=== PATIENT | female | born 1945 | race Caucasian/White ===

== ENCOUNTER 2018-02-13 00:16 | Outpatient (CLI) | payer MEDICARE, OTHER, SELFPAY ==
--- NOTE | 2018-02-13 11:15 | DI.MAMMO_ITS ---
SYMPTOM/DIAGNOSIS: SCREENING, Z12.39 MAMMOGRAMS: Mammograms were interpreted according to the usual protocol including computer analysis with CAD system, tomosynthesis and C view imaging. Comparison is made with prior examinations. Breast density, B. No masses or microcalcifications are seen. There is nothing to suggest malignancy. IMPRESSION: Negative mammogram. Routine screening is recommended. Category 1. MQSA ASSESSMENT OF FINDINGS: Negative. Category 1. Patient will receive a letter notifying them of these results. BI-RADS category B. There are scattered areas of fibroglandular density.
== END 2018-02-13 00:36 ==
PROVIDERS: PCP Nurse Practitioner Adult Health; Visit Provider Nurse Practitioner
DX: Z12.31 Encounter for screening mammogram for malignant neoplasm of breast (principal)
CPT/HCPCS: 77063; 77067

== ENCOUNTER 2020-01-07 12:50 | Outpatient (REF) | payer MEDICARE, OTHER, SELFPAY ==
[2020-01-07 22:07] LABS: ALT 35 U/L (14-59); AST 28 U/L (15-37); Albumin 3.9 g/dL (3.4-5.0); Alkaline Phosphatase 117 U/L (46-116); Anion Gap 8.5 mmol/L (3-11); BUN 20 mg/dL (7-18); Bilirubin, Total 0.7 mg/dL (0.2-1.0); CO2 27.5 mmol/L (21.0-32.0); CREATININE 0.73 mg/dL (0.55-1.02); Calcium 9.6 mg/dL (8.5-10.1); Calculated LDL 67 mg/dL (<100); Chloride 106 mmol/L (98-107); Cholesterol 172 mg/dL (<200); Glucose 90 mg/dL (74-106); HDL Cholesterol 95 mg/dL (40-60); Potassium 4.5 mmol/L (3.5-5.1); Sodium 142 mmol/L (136-145); Total Protein 7.1 g/dL (6.4-8.2); Triglyceride 50 mg/dL (<150)
== END 2020-01-07 13:10 ==
LOC: NCHCN 12:50
PROVIDERS: PCP Nurse Practitioner; Visit Provider Nurse Practitioner
DX: I10 Essential (primary) hypertension (principal); I73.9 Peripheral vascular disease, unspecified
CPT/HCPCS: 80053; 80061

== ENCOUNTER 2020-02-03 01:42 | Outpatient (CLI) | payer MEDICARE, OTHER, SELFPAY ==
--- NOTE | 2020-02-03 | DI.MAMMO_ITS ---
EXAM: MAMMO SCREENING CLINICAL HISTORY: SCREENING, Z12.39 TECHNIQUE: Mammograms were interpreted according to the usual protocol including computer analysis w [employer] CAD system, tomosynthesis and C-view imaging. COMPARISON: 2011 through 2017 FINDINGS: The breasts are composed of heterogeneously dense fibroglandular densities, Breast Density category C . No suspicious masses or suspicious microcalcifications are seen. Vascular calcifications are inciden tally noted. No skin thickening or abnormal axillary lymph nodes are seen. There has been no significant change from prior exams. IMPRESSION: BI-RADS Category 1 - Negative Yearly screening mammography is recommended. Breast Density - Category C - Heterogeneously dense The mammogram demonstrates the patient's breast tissue is dense. Dense breast tissue is very common a nd is not abnormal but dense breast tissue can make it harder to find cancer on a mammogram. Also, de nse breast tissue may increase breast cancer risk. This information about the result of the mammogram report was provided to the patient to raise their awareness. Use this report when you speak with the patient about their risks for breast cancer, which includes their family history. At that time, you may recommend additional screening tests (Ultrasound or MRI) as they might be useful based on their r isk. A negative radiographic report should not delay biopsy if a dominant or clinically suspicious mass is present. Up to ten percent of cancers are not identified on mammography. A negative report may reinforce clinical impression. Adenosis and dense breasts may obscure an underlying neoplasm. False positive reports average 6 to 10%.
== END 2020-02-03 02:02 ==
PROVIDERS: PCP Nurse Practitioner; Visit Provider Nurse Practitioner
DX: Z12.31 Encounter for screening mammogram for malignant neoplasm of breast (principal); R92.2 Inconclusive mammogram
CPT/HCPCS: 77063; 77067

== ENCOUNTER 2021-06-22 18:32 | Outpatient (REF) | payer MEDICARE, SELFPAY ==
[2021-06-22 19:02] LABS: HCT 39.1 % (36.0-46.0); HGB 12.5 g/dL (11.2-15.7); MCH 31.3 pg (27.0-33.0); MCV 97.8 fL (80-95); MPV 12.7 fL (8.0-11.0); Platelet Count 243 10^3/uL (130-400); RDW 13.1 % (11.7-14.6); RDW-SD 47.5 fL; WBC 5.81 10^3/uL (4.4-10.8)
[2021-06-22 20:03] LABS: ALT 42 U/L (14-59); AST 34 U/L (15-37); Albumin 3.7 g/dL (3.4-5.0); Alkaline Phosphatase 150 U/L (46-116); Anion Gap 9.2 mmol/L (3-11); BUN 17 mg/dL (7-18); Bilirubin, Total 0.6 mg/dL (0.2-1.0); CO2 25.8 mmol/L (21.0-32.0); CREATININE 0.6 mg/dL (0.55-1.02); Calcium 9.4 mg/dL (8.5-10.1); Calculated LDL 60 mg/dL (<100); Chloride 105 mmol/L (98-107); Cholesterol 167 mg/dL (<200); Glucose 97 mg/dL (74-106); HDL Cholesterol 95 mg/dL (40-60); Potassium 4.7 mmol/L (3.5-5.1); Sodium 140 mmol/L (136-145); Triglyceride 64 mg/dL (<150)
== END 2021-06-22 18:33 | disposition home or self-care (01) ==
LOC: NCHCN 18:32
PROVIDERS: PCP Nurse Practitioner; Visit Provider Nurse Practitioner Family
DX: I10 Essential (primary) hypertension (principal); I73.9 Peripheral vascular disease, unspecified; G47.00 Insomnia, unspecified
CPT/HCPCS: 80053; 80061; 85027

== ENCOUNTER 2022-08-30 20:29 | Outpatient (REF) | payer MEDICARE, SELFPAY ==
[2022-08-30 20:23] LABS: ESR 20 mm/hr (0-30)
[2022-08-30 20:24] LABS: Abs Immature Grans 0.01 10^3/uL (0.0-0.06); Absolute Basophil Count 0.07 10^3/uL (0.0-0.2); Absolute Eosinophil Count 0.15 10^3/uL (0.0-0.7); Absolute Lymphocyte Count 1.86 10^3/uL (1.2-3.4); Absolute Monocyte Count 0.41 10^3/uL (0.1-0.8); Absolute Neutrophil Count 4.07 10^3/uL (1.2-6.7); Basophils % 1.1; Eosinophils % 2.3; HCT 37.1 % (36.0-46.0); HGB 12.4 g/dL (11.2-15.7); Immature Grans % 0.2; Lymphocytes % 28.3; MCHC 33.4 % (32.0-36.0); MCV 96 fL (80-95); MPV 12.6 fL (8.0-11.0); Monocytes % 6.2; Neutrophils % 61.9; Platelet Count 220 10^3/uL (130-400); RBC 3.87 10^6/uL (3.93-5.22); RDW 12.9 % (11.7-14.6); RDW-SD 45.8 fL; WBC 6.57 10^3/uL (4.4-10.8)
[2022-08-30 20:40] LABS: Iron 52 ug/dL (50-170); Total Iron Binding Capacity 279 ug/dL (250-450); Transferrin Sat 19 % (15-50)
[2022-08-30 20:46] LABS: ALT 30 U/L (14-59); AST 27 U/L (15-37); Albumin 3.8 g/dL (3.4-5.0); Alkaline Phosphatase 166 U/L (46-116); Anion Gap 7.8 mmol/L (3-11); BUN 27 mg/dL (7-18); Bilirubin, Total 0.5 mg/dL (0.2-1.0); C-Reactive Protein 0.32 mg/dL (0.0-0.3); CO2 26.2 mmol/L (21.0-32.0); CREATININE 0.7 mg/dL (0.55-1.02); Calcium 9.4 mg/dL (8.5-10.1); Chloride 104 mmol/L (98-107); Estimated GFR 89.02 (mL/min/1.73m2); Glucose 93 mg/dL (74-106); Potassium 4.4 mmol/L (3.5-5.1); Sodium 138 mmol/L (136-145); Total Protein 7.2 g/dL (6.4-8.2)
[2022-08-30 21:23] LABS: Vitamin B12 864 pg/mL (193-986)
== END 2022-08-30 20:30 | disposition home or self-care (01) ==
LOC: NCHCN 20:29
PROVIDERS: PCP Nurse Practitioner; Visit Provider Nurse Practitioner Family
DX: I49.9 Cardiac arrhythmia, unspecified (principal); R53.83 Other fatigue; I10 Essential (primary) hypertension; L30.9 Dermatitis, unspecified
CPT/HCPCS: 80053; 85652; 82607; 83540; 83550; 84443; 85025; 86140

== ENCOUNTER 2022-09-07 09:25 | Outpatient (RCR) | payer MEDICARE, SELFPAY ==
--- NOTE | 2022-09-07 09:30 | HOLTER_ITS ---
APPROVED REPORT Conclusion This is a 48-hour Holter monitor Rhythm throughout was sinus with an average heart rate of 70. Minimum was 53, maximum 105 There were rare isolated ventricular ectopic beats There were moderately frequent atrial premature beats comprising 3% of total A total of 13 self-limited atrial runs occurred. The longest of these was 14 beats in duration There was no atrial fibrillation, no high-grade AV block, no pauses greater than 3 seconds No patient symptoms were reported
== END 2022-10-04 23:59 | disposition home or self-care (01) ==
LOC: CARDOPNVT 09:25
PROVIDERS: PCP Nurse Practitioner; Visit Provider Nurse Practitioner Family
DX: R53.82 Chronic fatigue, unspecified (principal); I49.9 Cardiac arrhythmia, unspecified
CPT/HCPCS: 93227; 93225; 93226

== ENCOUNTER 2022-10-04 02:41 | Outpatient (CLI) | payer MEDICARE, SELFPAY ==
--- NOTE | 2022-10-04 10:58 | DI.RAD_ITS ---
Exam(s) XR CHEST 2V PA LATERAL EXAM: XR CHEST 2V PA LATERAL CLINICAL HISTORY: GODFREY, R06.09; PREMATURE ATRIAL CONTRACTIONS, I49.1; FATIGUE, R53.83 TECHNIQUE: 2D digital imaging was performed. COMPARISON: No exams were available for comparison FINDINGS: HEART: Normal size. Mitral annular calcification. Aorta: Not dilated. PULMONARY VASCULATURE: Normal. LUNGS: Clear. PLEURAL SPACE: No pleural effusion or pneumothorax. BONE:Unremarkable for age. IMPRESSION: No acute abnormality. DATA REPOSITORY: RADIATION DOSE DELIVERED:
== END 2022-10-04 03:01 ==
PROVIDERS: PCP Nurse Practitioner Family; Visit Provider Nurse Practitioner Family
DX: R06.9 Unspecified abnormalities of breathing (principal); I49.1 Atrial premature depolarization; R53.83 Other fatigue
CPT/HCPCS: 71046

== ENCOUNTER → 2022-12-22 00:41 | Outpatient (CLI) | payer MEDICARE, SELFPAY ==
--- NOTE | 2022-12-22 | DI.US_ITS ---
APPROVED REPORT EXAM: Comprehensive 2D, Doppler, and color-flow Echocardiogram Patient Location: Out-Patient Cottrell Blower: Tish Link RDCS (AE) Indications: GODFREY, Premature atrial contractions, Fatigue Other Information Study Quality: Adequate Conclusion Normal left ventricular size and wall thickness. EF is 60%. Wall motion is normal Normal right ventricular size and systolic function Atria are normal in size Aortic valve is trileaflet without stenosis or regurgitation Mitral annular calcification. Mild mitral regurgitation Normal tricuspid valve with mild regurgitation. Estimated right ventricular systolic pressure is 29 mmHg Wall motion Left Ventricle The left ventricle is normal size. The left ventricular systolic function is normal. The left ventric ular ejection fraction is within the normal range. There is normal left ventricular wall thickness. T here is normal LV segmental wall motion. There is no ventricular septal defect visualized. LVEF is 60 %. Right Ventricle The right ventricle is normal size. The right ventricular systolic function is normal. Atria The left atrium size is normal. The right atrium size is normal. The interatrial septum is intact wit h no evidence for an atrial septal defect. Aortic Valve The aortic valve is normal in structure. There is no aortic valvular stenosis. No aortic regurgitatio n is present. Mitral Valve Moderate mitral annular calcification. No evidence of mitral valve stenosis. Mild mitral regurgitatio n. Tricuspid Valve The tricuspid valve is normal in structure. There is no tricuspid valve stenosis. Mild tricuspid reg urgitation. The RVSP is 29.3 mmHg. Pulmonic Valve The pulmonary valve is normal in structure. There is no pulmonic valvular stenosis. Trivial pulmonic regurgitation. Great Vessels The aortic root is normal in size. The ascending aorta is normal in size. Aortic arch is normal in ca liber. IVC is normal in size and collapses >50% with inspiration. Pericardium There is no pericardial effusion. 2D Dimensions IVSD d PLAX 0.80 cm F: 0.6-1.0 LVPW d PLAX 0.78 cm F: 0.6 - 1.0 LVID d PLAX 4.88 cm F: 3.8 - 5.2 LVDs 3.30 cm F: 2.2 - 3.5 Ao Root d 2.69 cm F: 2.7 - 3.3 RA Area A4C 9.46 cm2 Ao Asc Diam d 3.07 cm F: 2.3 - 3.1 LV EF Teichholz 59.9 % FS 31.90 % M-Mode TAPSE 2.05 cm (M/F) >1.7 LV Diastology MV E' medial 0.120 (>0.07 m/s) E/A Ratio 0.9 LV E/e MED 8.47 (<14) MV E Vmax 1.02 (0.4-1.3 m/s) MV E' lateral 0.098 (>0.1 m/s) MV A Vmax 1.10 (0.4-1.3 m/s) LV E/e LAT 10.46 (<14) MV E/E' medial 8.47 MV E/E' lateral 10.46 MV (E/E' average) 9.36 Aortic Valve LVOT Vmax 1.33 m/s AoV Area Vmax 2.39 cm2 LVOT Peak Grad 7.1 mmHg LVOT Mean Grad 3.7 mmHg LVOT Diam s 1.95 cm AoV Vmax 1.72 m/s Velocity Ratio 0.77 AoV Peak Grad 11.8 mmHg LVOT SV 100.49 mL AoV Mean Grad 5.6 mmHg AoV Area VTI 2.46 cm2 Mitral Valve MV DT 254 (160-240 msec) MV Vmax TIPS 1.11 m/s MV Mean Grad 1.8 (<2mmHg) MV VTI 0.458 m Pulmonary Valve PV Mean Grad 2.8 mmHg RVOT Peak Gr. 2.62 mmHg RVOT Mean Gr. 1.50 mmHg RVOT VTI 0.208 m RVOT Vmax 0.81 m/s Tricuspid Valve TR Peak Grad 26.3 mmHg TR Vmax 2.57 m/s RA Pressure 3.00 mmHg RVSP (TR) 29.3 mmHg
== END ==
PROVIDERS: PCP Nurse Practitioner Family; Visit Provider Nurse Practitioner Family
DX: R06.09 Other forms of dyspnea (principal)
CPT/HCPCS: 93306

== ENCOUNTER 2023-08-02 18:21 | Outpatient (REF) | payer MEDICARE, SELFPAY ==
[2023-08-02 19:06] LABS: HCT 38.1 % (36.0-46.0); HGB 12.5 g/dL (11.2-15.7); MCH 31.6 pg (27.0-33.0); MCHC 32.8 % (32.0-36.0); MCV 96 fL (80-95); MPV 12.4 fL (8.0-11.0); Platelet Count 219 10^3/uL (130-400); RBC 3.96 10^6/uL (3.93-5.22); RDW 13.2 % (11.7-14.6); RDW-SD 46.9 fL; WBC 6.78 10^3/uL (4.4-10.8)
[2023-08-02 19:26] LABS: Iron 62 ug/dL (50-170); Total Iron Binding Capacity 272 ug/dL (250-450); Transferrin Sat 23 % (15-50)
[2023-08-02 19:38] LABS: Anion Gap 11.5 mmol/L (3-11); BUN 27 mg/dL (7-18); CO2 25.5 mmol/L (21.0-32.0); CREATININE 0.6 mg/dL (0.55-1.02); Calcium 9.2 mg/dL (8.5-10.1); Calculated LDL 59 mg/dL (<100); Chloride 107 mmol/L (98-107); Cholesterol 160 mg/dL (<200); Estimated GFR 91.82 (mL/min/1.73m2); Ferritin 340 ng/mL (8-252); Glucose 99 mg/dL (74-106); HDL Cholesterol 91 mg/dL (40-60); Potassium 4.4 mmol/L (3.5-5.1); Sodium 144 mmol/L (136-145); Triglyceride 51 mg/dL (<150)
== END 2023-08-02 18:22 | disposition home or self-care (01) ==
LOC: NCHCN 18:21
PROVIDERS: PCP Nurse Practitioner Family; Referring Provider Nurse Practitioner Family; Visit Provider Nurse Practitioner Family
DX: I10 Essential (primary) hypertension (principal); E78.5 Hyperlipidemia, unspecified; D50.9 Iron deficiency anemia, unspecified
CPT/HCPCS: 80048; 80061; 85027; 82728; 83540; 83550

== ENCOUNTER 2023-08-27 13:45 | Outpatient (CLI) | payer MEDICARE, SELFPAY ==
--- NOTE | 2023-08-27 13:57 | DI.RAD_ITS ---
Exam(s) XR KNEE LT 3V AP,LAT,BEN EXAM: XR KNEE LT 3V AP,LAT,BEN CLINICAL HISTORY: BILATERAL KNEE PAIN. TECHNIQUE: 2D digital imaging was performed. Three images were obtained. Merchant's, AP and lateral views were obtained. COMPARISON: No exams were available for comparison FINDINGS: BONES: There are stable post operative changes of a left total knee replacement present. No fracture or dislocation. JOINTS: The orthopedic hardware is in good position. No evidence of hardware loosening. SOFT TISSUE: Dystrophic calcifications are seen in the soft tissues. Surgical clips are also seen in the soft tissues. There is a small joint effusion. IMPRESSION: Stable left total knee replacement. DATA REPOSITORY: RADIATION DOSE DELIVERED:
--- NOTE | 2023-08-27 13:58 | DI.RAD_ITS ---
Exam(s) XR KNEE RT 3V AP,LAT,BEN EXAM: XR KNEE RT 3V AP,LAT,BEN CLINICAL HISTORY: BILATERAL KNEE PAIN. TECHNIQUE: 2D digital imaging was performed. Three images were obtained. Merchant's, AP and lateral views were obtained. COMPARISON: No exams were available for comparison FINDINGS: BONES: There are stable post operative changes of a right total knee replacement present. No fractur e or dislocation. JOINTS: The orthopedic hardware is in good position. No evidence of hardware loosening. SOFT TISSUE: There is a well corticated osseous density in the lateral aspect of the joints which elena ears chronic. There does appear to be a small joint effusion. IMPRESSION: Stable right total knee replacement. DATA REPOSITORY: RADIATION DOSE DELIVERED:
== END 2023-08-27 13:46 | disposition home or self-care (01) ==
LOC: DIORS 13:45
PROVIDERS: PCP Nurse Practitioner Family; Referring Provider Nurse Practitioner Family; Visit Provider Student in an Organized Health Care Education/Training Program
DX: T84.84XA Pain due to internal orthopedic prosthetic devices, implants and grafts, initial encounter; T84.022A Instability of internal right knee prosthesis, initial encounter; Z96.652 Presence of left artificial knee joint; Z96.651 Presence of right artificial knee joint
CPT/HCPCS: 73562; 99204

== ENCOUNTER → 2023-09-11 05:22 | Outpatient (CLI) | payer MEDICARE, SELFPAY ==
--- NOTE | 2023-09-11 07:15 | DI.CT_ITS ---
Exam(s) CT LOWER EXTREMITY RT WO EXAM: CT LOWER EXTREMITY RT WO CLINICAL HISTORY: PAIN, ?LOOSENING,M25.561,T84.84XA. TECHNIQUE: Imaging Protocol: Axial computed tomography images with coronal and sagittal reformatted images were created and reviewed. COMPARISON: CR XR KNEE RT 3V AP,LAT,BEN from 08/27/2023 FINDINGS: Bones: The patient has a right total knee replacement which does create artifact. There are no susp icious lucency seen around the tibial component of the artifact. There also no lucency seen around t he femoral component of the prosthesis. The patella appears grossly unremarkable. The osseous struc tures and articular surfaces are intact. Bony alignment is satisfactory. No cellulitic or osteomyel itic changes are identified. No lytic or sclerotic lesions are identified. Soft Tissues: There is a joint effusion present. There is a popliteal cyst present measuring 3.0 x 3 .0 x 3.1 cm. IMPRESSION: 1. Within the limits of the examination, no suspicious lucencies are seen in or around the orthopedic hardware to suggest loosening. 2. Right total knee replacement. 3. Small joint effusion. 4. Popliteal cyst. RADIATION DOSE DELIVERED: 310.2mGy.cm Total DLP 310.2mGy.cm Total DLP DATA REPOSITORY: All CT scans at this facility are submitted to the National Radiology Data Registry (NRDR) Dose Index Registry (DIR) with the [employer] (ACR). RADIATION OPTIMIZATION: All CT scans at this facility use at least one of these dose optimization te chniques: automated exposure control; mA and/or kV adjustment per patient size (includes targeted exa ms where dose is matched to clinical indication); or iterative reconstruction.
--- NOTE | 2023-09-11 07:15 | DI.CT_ITS ---
Exam(s) CT LOWER EXTREMITY LT WO EXAM: CT LOWER EXTREMITY LT WO CLINICAL HISTORY: PAIN,?LOOSENING, M25.562,T84.84XA. TECHNIQUE: Imaging Protocol: Axial computed tomography images with coronal and sagittal reformatted images were created and reviewed. COMPARISON: CR XR KNEE LT 3V AP,LAT,BEN from 08/27/2023 FINDINGS: Bones: The patient has a left total knee replacement. This does create artifact. There is mild filiberto ency seen around the medial aspect of the tibial component anterior medially. The orthopedic hardwar e is otherwise unremarkable. Enthesophytes are seen at the anterior patella. No cellulitic or osteo myelitic changes are identified. There is a small joint effusion. No lytic or sclerotic lesions are identified. Soft Tissues: Small joint effusion. IMPRESSION: 1. Left total knee replacement. 2. Mild lucency is seen around the medial anterior aspect of the tibial component. Loosening or infe ction cannot be entirely excluded. There is some disruption of the cortex in this area. 3. Small joint effusion. RADIATION DOSE DELIVERED: 289.82mGy.cm Total DLP 289.82mGy.cm Total DLP DATA REPOSITORY: All CT scans at this facility are submitted to the National Radiology Data Registry (NRDR) Dose Index Registry (DIR) with the [employer] (ACR). RADIATION OPTIMIZATION: All CT scans at this facility use at least one of these dose optimization te chniques: automated exposure control; mA and/or kV adjustment per patient size (includes targeted exa ms where dose is matched to clinical indication); or iterative reconstruction.
--- NOTE | 2023-09-11 07:15 | DI.NM_ITS ---
Exam(s) NM BONE SCAN 3 PHASE EXAM: NM BONE SCAN 3 PHASE CLINICAL HISTORY: BILAT KNEE PAIN, ?LOOSENING PROSTHESIS,M25.561,M25.562. TECHNIQUE: Injected Dose: 25 mCi Tc-99m MDP COMPARISON: CR XR CHEST 2V PA LATERAL from 10/04/2022 CR XR KNEE LT 3V AP,LAT,BEN from 08/27/2023 CR XR KNEE RT 3V AP,LAT,BEN from 08/27/[address] LOWER EXTREMITY RT WO from 09/11/[address] LOWER EXTREMITY LT WO from 09/11/2023 FINDINGS: Perfusion: Mild hyperemia at the lateral aspect of the left knee. Blood Pool: Symmetric. Delayed: Increased activity seen in the left tibial plateau, adjacent to the prosthesis, greater post eriorly and medially. Findings along with CT findings are suspicious for loosening. There is mildly increased activity around the left femoral component of the prosthesis laterally. Mildly increased activity around the right knee prosthesis, likely within normal limits for postopera tive appearance. Mildly increased activity in the thoracic and lower lumbar spine consistent with de generative changes. IMPRESSION: Findings suspicious for loosening of the tibial component of the left femoral prosthesis. Mildly inc reased activity is also seen laterally at the femoral component of the left knee. The right knee shows mildly increased activity surrounding the prosthesis which is likely within norm al limits for postoperative appearance. DATA REPOSITORY:
[2023-09-11 10:34] LABS: ESR 26 mm/hr (0-30)
[2023-09-11 11:10] LABS: C-Reactive Protein < 0.50 mg/dL (<or=0.5)
== END ==
PROVIDERS: PCP Nurse Practitioner Family; Visit Provider Student in an Organized Health Care Education/Training Program
DX: T84.84XA Pain due to internal orthopedic prosthetic devices, implants and grafts, initial encounter (principal); Z96.651 Presence of right artificial knee joint; Z96.652 Presence of left artificial knee joint
CPT/HCPCS: 36415; 85652; 73700; 78315; 86140

== ENCOUNTER → 2023-10-08 14:45 | Outpatient (BNVA) | payer MEDICARE, SELFPAY | PROVIDERS: PCP Nurse Practitioner Family; Referring Provider Nurse Practitioner Family; Visit Provider Student in an Organized Health Care Education/Training Program | DX: T84.022A Instability of internal right knee prosthesis, initial encounter (principal); Z96.651 Presence of right artificial knee joint; Z96.652 Presence of left artificial knee joint; T84.038A Mechanical loosening of other internal prosthetic joint, initial encounter; T84.84XA Pain due to internal orthopedic prosthetic devices, implants and grafts, initial encounter; T84.068A Wear of articular bearing surface of other internal prosthetic joint, initial encounter | CPT/HCPCS: 99215 ==

== ENCOUNTER → 2024-02-04 09:50 | Outpatient (BNVA) | payer MEDICARE, SELFPAY | PROVIDERS: PCP Nurse Practitioner Family; Visit Provider Student in an Organized Health Care Education/Training Program | DX: M25.562 Pain in left knee (principal); Z96.652 Presence of left artificial knee joint; T84.84XA Pain due to internal orthopedic prosthetic devices, implants and grafts, initial encounter; T84.038A Mechanical loosening of other internal prosthetic joint, initial encounter; T84.068A Wear of articular bearing surface of other internal prosthetic joint, initial encounter | CPT/HCPCS: 99213 ==

== ENCOUNTER 2024-03-10 14:18 | Outpatient (CLI) | payer MEDICARE, SELFPAY ==
--- NOTE | 2024-03-10 14:15 | RT.EKG_ITS ---
APPROVED REPORT Exam: Resting ECG Reason for Exam: irregular heart beat Patient Location: O HR:108 bpm ECG Measurements Heart Rate 108 AXIS AZ [id number] P [id number] QRSd 96 QRS 0 QT 365 T 53 QTc 490 Conclusion Atrial fibrillation...? atrial activity RSR' in V1 or V2,
== END 2024-03-10 14:19 | disposition home or self-care (01) ==
LOC: CARDOPNVT 14:18
PROVIDERS: PCP Nurse Practitioner Family; Visit Provider Physician Assistant
DX: I49.9 Cardiac arrhythmia, unspecified (principal); I48.91 Unspecified atrial fibrillation; T84.038A Mechanical loosening of other internal prosthetic joint, initial encounter; Z96.652 Presence of left artificial knee joint
CPT/HCPCS: 36415; 80048; 85027; 99214; 93005; 93010

== ENCOUNTER 2024-03-11 16:11 | Outpatient (REF) | payer MEDICARE, SELFPAY ==
--- OUTSIDE RECORDS SUMMARY | 2024-03-11 16:14 | XMS_ITS | Encounter Summary ---
[place] [address] Care Team Providers Care Production Superintendent Hydro Name Role Phone Sylvia Torrez MINERAL MIXER Primary Care Provider [phone] Encounter Details Date Type Department Care Team (Late st Contact Info) Description 11/30/2023 Telephone [place] [id number] Jenn Krishna Social History Tobacco Use Types Packs/Day Years Used Date Smoking Tobacco: Former Cigarettes Q uit: 1964 Smokeless Tobacco: Never Alcohol Use Standard Drinks/Week Comments No 0 (1 standard drink = 0.6 oz pur e alcohol) Sex and Gender Information Value Date Recorded Sex Assigned at Not on file Gender Identity Not on file Sexual Orientation Not on file documented as of this encounter Miscellaneous Notes * Telephone Encounter - Jenn Krishna - 11/30/2023 11:38 AM EDT LVM X1 for patient to call and set up a follow up appointment and some testing with our clinic. RAO - claudication, 1Y F/U [place] CAGE documented in this encounter Plan of Treatment Not on file documented as of this encounter Visit Diagnoses Not on filedocumented in this encounter Care Teams Production Superintendent Hydro Relationship Specialty Start Date End Date Sylvia Torrez, [place] [address] PCP - General Family Medicine 08/03/21 documented as of this encounter
--- OUTSIDE RECORDS SUMMARY | 2024-03-11 16:14 | XMS_ITS | Encounter Summary ---
Author Organization [facility] Address [facility] [place] [address] Care Team Providers Care Java Tech Name Role Phone Grayson Mcduffie MD Primary Care Provider [phone] Encounter Details Date Type Department Care Team (Late st Contact Info) Description 05/18/2010 11:40 AM EST Follow-[place] [address] Felipe Tse MD [facility] [place] [address] Discharge Disposition: Home Social History Tobacco Use Types Packs/Day Years Used Date Smoking Tobacco: Never Assessed Sex and Gender Information Value Date Recorded Sex Assigned at Not on file Gender Identity Not on file Sexual Orientation Not on file documented as of this encounter Plan of Treatment Not on file documented as of this encounter Visit Diagnoses Not on filedocumented in this encounter Care Teams Java Tech Relationship Specialty Start Date End Date Grayson Mcduffie MD PCP - General 03/29/10 03/14/15 documented as of this encounter
--- OUTSIDE RECORDS SUMMARY | 2024-03-11 16:14 | XMS_ITS | Encounter Summary ---
Author Organization [facility] Address [facility] [place] [address] Care Team Providers Care Patch Press Operator Name Role Phone Grayson Mcduffie MD Primary Care Provider [phone] Reason for Visit * Reason Onset Date Comments Appointment 09/15/2014 Encounter Details Date Type Department Care Team (Late st Contact Info) Description 09/15/2014 Telephone [place] [phone] Alison Arellano APRN [facility] [place] [address] Appointment Social History Tobacco Use Types Packs/Day Years Used Date Smoking Tobacco: Former Smokeless Tobacco: Never Alcohol Use Standard Drinks/Week Comments No 0 (1 standard drink = 0.6 oz pur e alcohol) Sex and Gender Information Value Date Recorded Sex Assigned at Not on file Gender Identity Not on file Sexual Orientation Not on file documented as of this encounter Miscellaneous Notes * Telephone Encounter - Janeth Randolph - 09/17/2014 10:49 AM EDT Patient will call back to schedule at her convinence, I have placed a reminder in the system for a year out. * Telephone Encounter - Geri Andino - 09/15/2014 10:03 AM EDT LM#1 for patient to reschedule cancelled appt with Porsha Arellano. Can be with any AP. BILAT TKA 06/07/05 - ZANE documented in this encounter Plan of Treatment Not on file documented as of this encounter Visit Diagnoses Not on filedocumented in this encounter Care Teams Patch Press Operator Relationship Specialty Start Date End Date Grayson Mcduffie MD PCP - General 03/29/10 03/14/15 documented as of this encounter
--- OUTSIDE RECORDS SUMMARY | 2024-03-11 16:14 | XMS_ITS | Encounter Summary ---
Author Organization [facility] Address [facility] [place] [address] Care Team Providers Care Back Tufter Name Role Phone Grayson Mcduffie MD Primary Care Provider [phone] Reason for Visit * Reason Comments [facility] S/P B/L TKA 06/27/05 Encounter Details Date Type Department Care Team (Late st Contact Info) Description 05/13/2012 2:30 PM EST Office [place] [phone] CLINIC, DR MCGILL S/P knee replacement (Primary Dx) Discharge Disposition: Home Social History Tobacco Use Types Packs/Day Years Used Date Smoking Tobacco: Former Smokeless Tobacco: Never Alcohol Use Standard Drinks/Week Comments No 0 (1 standard drink = 0.6 oz pur e alcohol) Sex and Gender Information Value Date Recorded Sex Assigned at Not on file Gender Identity Not on file Sexual Orientation Not on file documented as of this encounter Last Filed Vital Signs Vital Sign Reading Time Taken Comments Blood Pressure 142/78 05/13/2012 3:19 PM EST Pulse 80 05/13/2012 3:19 PM EST Temperature - - Respiratory Rate - - Oxygen Saturation - - Inhaled Oxygen Concentration - - Weight 85.6 kg (188 lb 12.8 oz) 05/13/2012 3:19 PM EST Height 157.5 cm (5' 2) 05/13/2012 3:19 PM EST Body Mass Index 34.53 05/13/2012 3:19 PM EST documented in this encounter Progress Notes * Alison Arellano APRN - 05/13/2012 3:25 PM EST Chief Complaint: Bilateral knee TKA 2005 Right knee TKA Khai/Dr. Vanessa Left knee TKA Pertinent Surgical History: Right knee TKA: [facility] OPERATIVE REPORTS SURGERY DATE: 06/27/2005 JENN GARCIA [id number] Surgeon: CALLI DEGROOT MD ([id number]) Date: Jun 27, 2005 Surgeon: Calli Degroot MD Surgical Procedure Performed: Right total knee arthroplasty, posterior stabilized The left TKA will be dictated by Drs. Vanessa and Dianelys Components Used: Thais Legacy Posterior Stabilized Femur size D Tibial baseplate size 2 Tibial polyethylene 14 mm Three peg patella size 29 mm Left knee TKA: [facility] OPERATIVE REPORTS SURGERY DATE: 06/27/2005 JENN GARCIA [id number] Surgical Staff/Assistants Ollie Vanessa Jr., M.D. ([id number]) Reji Ivory M.D. * Preoperative Diagnosis: Left knee osteoarthritis. Postoperative Diagnosis: Left knee osteoarthritis. Procedure Performed: Left total knee arthroplasty; please note that the right- sided procedure will be dictated under separate cover by Dr. Degroot. Anesthesia: Spinal and femoral block. Components Used: Thais Legacy posterior stabilized: 1. Femur, size D. 2. Tibial base plate, size 2. 3. Tibial polyethylene, 12.0-mm. 4. 3-peg patella, size 32.0-mm. HPI: 66 Female. NO complaints with her knees. No pain. No mechanical complaints. Continues to feel better than before surgery. No injuries. No assistive devices. Continues to work at [employer]. Followed by the Vascular service for severe peripheral vascular disease left lower extremity. Seeing a metalsmith this month for calluses and heel pain. ROS: No fevers or chills. No systemic complains. 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 Hobbies: Walking. Problem list reviewed in [facility] Medication List reviewed in [facility] No Known Allergies History Substance Use Topics ??? Smoking status: Former Smoker ??? Smokeless tobacco: Never Used ??? Alcohol Use: No Physical Exam: Very pleasant 66 Female in no acute distress. Alert and oriented X3. Affect is bright and appropriate. Gait is steady. Non-antalgic. No assistive devices. Uses 2 hands to rise out of chair. Can get on and off exam table without difficulty. Good patella mobility 1-2 quadrants medially and laterally.No patella click or clunk noted. Both knees full extension to 0 degrees. Left knee flexion to 110. R ight knee flexion 115. Collateral and cruciate ligaments 1-2 mm SEP. Full light touch sensation. Skin is dry and intact. She does have very dry skin to both feet. + callouses to volar left foot an mild left heel pain at the medial calcaneal tuberosity. calfs are soft and non-tender. Right foot dorsalis pedis pulse 2+ Left foot dorsalis pedis pulse istrace. Capillary refill is less than 3 seconds. No lymphadenopathy. Xrays: Both knees stable bilateral knee TKA's. No radiolucencies. No jared- prosthetic fractures. No malpositioning. Impression: Both knee TKA's Dr. Degroot right knee. Dr. Vanessa left knee. Continues to feel betterthan before surgery. Plan: Dental precautions discussed in detail. Activity precautions reviewed. Skin, soft tissue and genitourinary precautions reviewed in detail. Try to use heavy emollient lotion ointment to both feet due to very dry skin. Follow with metalsmith for left heel pain and calloses. Certainly, Keep appointments with vascular service for PVD. We will plan a 2 year follow up with DR. Degroot with x- rays of both knees. Call in the interim for any problems or concerns. All questions answered today. She has a good understanding of our plan of care. CC: PCP documented in this encounter Plan of Treatment Not on file documented as of this encounter Visit Diagnoses Diagnosis S/P knee replacement- Primary Knee joint replacement by other means documented in this encounter Care Teams Back Tufter Relationship Specialty Start Date End Date Grayson Mcduffie MD PCP - General 03/29/10 03/14/15 documented as of this encounter
--- OUTSIDE RECORDS SUMMARY | 2024-03-11 16:14 | XMS_ITS | Encounter Summary ---
Author Organization [facility] Address [address] [place] [id number] Care Team Providers Care Mobile Home Installer Name Role Phone Unavailable Primary Care Provider Unavailabl e Encounter Details Date Type Department Care Team (Late st Contact Info) Description 11/25/2009 Results Only [facility] - [facility] ([facility]) [address], [place] [id number] Jose Gunderson MD [address] [place] [phone] Social History Tobacco Use Types Packs/Day Years Used Date Smoking Tobacco: Never Assessed Sex and Gender Information Value Date Recorded Sex Assigned at Not on file Gender Identity Not on file Sexual Orientation Not on file documented as of this encounter Plan of Treatment Not on file documented as of this encounter Procedures Procedure Name Priority Date/Time Associated Diagnosis Comments CYTOPATHOLOGY Routine 11/25/2009 0:00 EDT documented in this encounter Results * CYTOPATHOLOGY (11/25/2009 0:00 EDT) Pathology Report: CYTOPATHOLOGY REPORT ? Reports generated via electronic interface contain original data; ? however they are lacking the format of the original report. ? Caution should be taken when reading/interpreti ng unformatted reports. ? Name: ? JENN GARCIA ? Accession #: ? [id number] ? : ? 1945 (Age: 64) ??F ?Collect Date: ? 11/25/2009 ? Location: ? [facility] ? Receive Date: ? 11/29/2009 ? Provider: ?JOSE GUNDERSON MD ? Copy to: ? Specimen/Source: ?Pap Test, Cervix/Endocervix, ThinPrep Imaging System ? with manual evaluation ? Last Menstrual Period: ? 1993 ? Other: ? HPVA - HPV testing requested if ASC-US on the current ThinPrep Pap test. ? SPECIMEN ADEQUACY ? Satisfactory for Evaluation ? - assessment of transformation zone component not applicable ( e.g. atrophy, ? vaginal sample, hysterectomy) ? - scant squamous epithelial component secondary to excessive inflammation ? GENERAL CATEGORIZATION ? Negative for Intraepithelial Lesion or Malignancy ? Document reviewed and electronically signed by: ? Lynan Virgil, CT(ASCP) ? Report Date: ??12/01/2009 11:48 ? End of Report ? [facility] 11/25/2009 11/29/2009 Jose Gunderson MD PATHOLOGY ORDERABLES [facility] [address] [place] [address] documented in this encounter Visit Diagnoses Not on filedocumented in this encounter
--- OUTSIDE RECORDS SUMMARY | 2024-03-11 16:14 | XMS_ITS | Encounter Summary ---
Author Organization [facility] [place] [address] Care Team Providers Care Associate Professor Of English Name Role Phone ShanSylvia APRN Primary Care Provider [phone] Reason for Referral * Diagnostic Test (Routine) - Closed Specialty Diagnoses / Procedures Referred By Contac t Referred To Contact Diagnoses Bilateral carotid artery stenosis Procedures Carotid Duplex, Bilateral Nroman Her MD [facility] [place] [address] [facility] [address] [place] [phone] Referral ID Status Reason Start Date Expiration Date V isits Requested Visits Authorized [id number] Closed Specialty Service Requested 08/03/2021 08/03/2022 1 1 * Diagnostic Test (Routine) - Closed Specialty Diagnoses / Procedures Referred By Contac t Referred To Contact Diagnoses PVD (peripheral vascular disease) Procedures RAO, legs, multiple levels Norman Her MD [facility] [place] [address] [facility] [address] [place] [phone] Referral ID Status Reason Start Date Expiration Date V isits Requested Visits Authorized [id number] Closed Specialty Service Requested 08/03/2021 08/03/2022 1 1 Encounter Details Date Type Department Care Team (Late st Contact Info) Description 08/03/2021 11:00 AM EDT Office [place] [phone] Norman Her MD [facility] DR VASCULAR [place] [address] Bilateral carotid artery stenosis; PVD (peripheral vascular disease) Social History Tobacco Use Types Packs/Day Years [...] Sign Reading Time Taken Comments Blood Pressure 123/55 08/03/2021 10:55 AM EDT Pulse 75 08/03/2021 10:55 AM EDT Temperature - - Respiratory Rate - - Oxygen Saturation - - Inhaled Oxygen Concentration - - Weight 68 kg (150 lb) 08/03/2021 10:55 AM EDT re ported Height 157.5 cm (5' 2) 08/03/2021 10:55 AM EDT reported Body Mass Index 27.44 08/03/2021 10:55 AM EDT documented in this encounter Progress Notes * Norman Her MD - 08/03/2021 11:00 AM EDT Interval History: 75 yo woman returned for reevaluation of LEFT lower extremity peripheral vasculardisease . She reports no left lower extremity pain with ambulation. Denies signficant numbness. Denies foot ulcers or gangrenous toes. Notes continued LLE swelling and very dry skin on the plantar surface of her feet. She denies stroke, TIA, amaurosis fugax. Vascular History: Current Outpatient Medications: ??? meclizine (Antivert) 25 mg Tablet, TK 1 TO 2 TS PO BID PRF DIZZINESS, Disp: , Rfl: ??? amitriptyline (ELAVIL) 50 mg Tablet, TK 1 T PO QHS, Disp: , Rfl: 4 ??? mometasone (ELOCON) 0.1 % Cream, IMANI EXT AA QD FOR 10 DAYS, Disp: , Rfl: 1 ??? lisinopril (PRINIVIL;ZESTRIL) 20 mg Tablet, Take 20 mg by mouth daily., Disp: , Rfl: ??? multivitamin (THERAGRAN) tablet, Take 1 tablet by mouth daily. VITAMIN FOR WOMEN OVER 50, Disp:, Rfl: ??? atorvastatin (LIPITOR) 40 mg tablet, , Disp: , Rfl: ??? aspirin (ECOTRIN LOW STRENGTH) 81 mg EC tablet, , Disp: , Rfl: LEFT LOWER EXTREMITY PVD # Left fem-pop bypass graft with vein, OSH, September 2004 for ischemic rest pain. # BPG thrombosed on POD1, salvaged with thrombectomy and revision. Post-op thigh wound infection # BPG intimal hyperplasia, treated with cryoplasty at [facility] in Mar 10. 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 List includes aspirin & atorvastatin Allergies: NKDA ROS: Constitutional Denies weight loss, fevers or chills EENMT No visual disturbances, No hearing loss Cardiovascular Denies chest pain, chest pressure, angina Respiratory Denies acute SOB, cough, severe GODFREY GI No constipation or diarrhea Denies dysuria, hematuria Musculoskeletal No severe muscle aches Neurological Denies stroke, TIA, amaurosis fugax, dysarthria, dysphasia Endocrine No signs or symptoms of diabetes mellitus Heme/Lymphatic Denies s/s blood or lymph dyscrasias Physical Exam: Pleasant o/w woman NAD. BP 117/66 RUE, 119/72 LUE, HR 68, and cardiac rhythm regular. Carotid pulses are normal, no bruits. Radial pulses are normal. Abdomen doft and nontender. Femoral pulses are normal. The right lower extremity retains a normal palpable dorsalis pedis pulse. The left lower extremity has no DP or PT pulses. Motor exam of both lower extremities is normal. Sensation is fully intact. LLE remains edematous, but there are no changes of chronic venous insufficiency or enlarged varicosities. Plantar surfaces of both feet have very dry calloused skin. Noninvasive vascular studies: Recent Results (from the past 72 hour(s)) RAO, legs, multiple levels Result Value Ref Range VB Text Report Department: Vascular Surgery Lab Patient: [id number] (JENN GARCIA) CPT: 55563 Referring Physician: NORMAN HER Indications: PVD Diabetes mellitus: no Findings: Right Pressure (mm Hg) RAO Waveform TBI Brachial Artery 128 Dorsalis Pedis (Ankle) Artery 113 0.88 Bi-Triphasic Posterior Tibial (Ankle) Artery 109 0.85 Bi-Triphasic Great Toe 63 0.49 Left Pressure (mm Hg) RAO Waveform TBI Brachial Artery 128 Dorsalis Pedis (Ankle) Artery 46 0.36 Monophasic Posterior Tibial (Ankle) Artery 68 0.53 Monophasic Great Toe 35 0.27 Interpretation: RIGHT: Mild lower extremity arterial occlusive disease at the calf level. Toe-brachial index substantially lower than ankle-brachial index indicates presence of moderate arterial occlusive disease in the foot. No significant change compared to previous exam. LEFT: Moderate lower extremity arterial occlusive disease at the calf level. Toe-brachial index substantially lower than ankle-brachial index indicates presence of moderately severe arterial occlusive disease in the foot. No significant change compared to previous exam. Previous ABIs with change from previous value: Date RIGHT DP RIGHT PT RT GR TOE RT Sec TOE 0.74 0.71 0.47 ---- 0.73(-.01) 0.75(+.04) 0.53(+.06) ---- 0.90(+.17) 0.87(+.12) ---- ---- 0.69(-.21) 0.75(-.12) 0.49 ---- 0.80(+.11) 0.88(+.13) ---- ---- 0.82(+.02) 0.84(-.04) ---- ---- 0.63(-.19) 0.76(-.08) ---- ---- 0.75(+.12) 0.80(+.04) 0.52 ---- Current 0.88(+.13) 0.85(+.05) 0.49(-.03) ---- Date LEFT DP LEFT PT LT GR TOE LT Sec TOE 0.25 0.38 0.25 ---- 0.35(+.10) 0.47(+.09) 0.23(-.02) ---- 0.46(+.11) 0.48(+.01) 0.22(-.01) ---- 0.34(-.12) 0.38(-.10) 0.20(-.02) ---- 0.41(+.07) 0.50(+.12) ---- ---- 0.41( .00) 0.51(+.01) ---- ---- 0.32(-.09) 0.44(-.07) ---- ---- 0.36(+.04) 0.41(-.03) 0.20 ---- Current 0.36( .00) 0.53(+.12) 0.27(+.07) ---- Electronically Signed by: NORMAN HER on 2021-08-03 10:56:02 AM VB Text Report End of Report Impression & Plan: ??? Stable bilateral PAD, no symptoms. ABIs on both sides have been stable over the past few years.Excellent atherosclerotic medical regimen including statin. ??? Routine recommendations for continued ambulatory exercise and meticulous foot care. I recommended daily foot massage with skin lotion. She should stay on statin and aspirin. I recommended a reevaluation in one year, and I warned her to call before then should she develop any advanced vascular ischemic symptoms or cerebrovascular symptoms. documented in this encounter Plan of Treatment Not on file documented as of this encounter Results * Carotid Duplex, Bilateral (12/29/2022 10:52 AM EDT) VB Text Report Department: Vascular Surgery Lab Patient: [id number] (JENN GARCIA) CPT: 51602 Referring Physician: NORMAN HER ?? Indications: carotid disease Findings: ICA Proximal, Right ? PSV (cm/s): 98 ? EDV (cm/s): 26 ? ICA/CCA: 2.0 ? Plaque Structure: Echogenic ? Plaque Surface: Irregular ? %Stenosis: 16-49% ICA Distal, Right ? PSV (cm/s): 91 ? EDV (cm/s): 21 ? ICA/CCA: 1.8 CCA Distal, Right ? PSV (cm/s): 50 ? EDV (cm/s): 14 ? %Stenosis: Minimal CCA Proximal, Right ? PSV (cm/s): 72 ? EDV (cm/s): 15 External Carotid Artery, Right ? PSV (cm/s): 76 ? EDV (cm/s): 5 ? %Stenosis: <50% Vertebral, Right ? PSV (cm/s): 89 ? EDV (cm/s): 20 ? Direction of Flow: Antegrade ICA Proximal, Left ? PSV (cm/s): 108 ? EDV (cm/s): 27 ? ICA/CCA: 1.2 ? Plaque Structure: Echogenic ? Plaque Surface: Irregular ? %Stenosis: 16-49% ICA Distal, Left ? PSV (cm/s): 94 ? EDV (cm/s): 22 ? ICA/CCA: 1.1 CCA Distal, Left ? PSV (cm/s): 89 ? EDV (cm/s): 18 ? %Stenosis: Minimal CCA Proximal, Left ? PSV (cm/s): 122 ? EDV (cm/s): 24 External Carotid Artery, Left ? PSV (cm/s): 167 ? EDV (cm/s): 10 ? %Stenosis: <50% Vertebral, Left ? PSV (cm/s): 57 ? EDV (cm/s): 17 ? Direction of Flow: Antegrade Interpretation: RIGHT: There is bulky irregular plaque in the proximal internal carotid artery causing 16-49% stenosis when compared to the more distal internal carotid artery. The bifurcation level is in the mid neck. No significant change compared to previous exam. LEFT: There is bulky irregular plaque in the proximal internal carotid artery causing 16-49% stenosis when compared to the more distal internal carotid artery. The bifurcation level is in the mid neck. No significant change compared to previous exam. Vertebral Artery Data: Patent vertebral arteries with normal antegrade Doppler waveforms and velocities bilaterally. Previous Carotid Studies: Date ?RIGHT ICA Stenosis ??PSV ?? Ratio ?? LEFT ICA Stenosis ?? PSV ?? Ratio ? 16-49% ? 77 ?n/a ?16-49% ? 72 ?n/a ? <15% ? 70 ?1.90 ? <15% ? 127 ?? 1.50 ? <15% ? 52 ?1.40 ? <15% ? 64 ?1.70 ? 16-49% ? 68 ?1.10 ? 16-49% ? 90 ?1.00 Current Exam ? 16-49% ? 98 ?2.00 ? 16-49% ? 108 ?? 1.20 Electronically Signed by: DEJON UPTON M.D. on 2023-01-01 08:21:06 AM VASCU[facility] VB Text Report End of Report VAS[facility] 12/29/2022 10:5 2 AM EDT Norman Her MD VASCULAR ORDERABLES [facility] * RAO, legs, multiple levels (12/29/2022 10:52 AM EDT) VB Text Report Department: Vascular Surgery Lab Patient: [id number] (JENN GARCIA) CPT: 13959 Referring Physician: NORMAN HER ?? Indications: PVD Diabetes mellitus: no Findings: Right ?Pressure (mm Hg) ?? RAO ??Waveform ?? TBI ?? Brachial Artery ?146 ? Dorsalis Pedis (Ankle) Artery ?103 ? 0.71 ??Biphasic ? Posterior Tibial (Ankle) Artery ??107 ? 0.73 ??Biphasic ? Great Toe ?78 ?0.53 ?? Left ? Pressure (mm Hg) ?? RAO ??Waveform ? TBI ?? Brachial Artery ?146 ? Dorsalis Pedis (Ankle) Artery ?60 ?0.41 ??Monophasic ? Posterior Tibial (Ankle) Artery ??75 ?0.51 ??Monophasic ? Great Toe ?39 ?0.27 ?? Interpretation: RIGHT: Mild lower extremity arterial occlusive disease. No significant change compared to previous exam. LEFT: Moderate to moderately severe lower extremity arterial occlusive disease. No significant change compared to previous exam. Previous ABIs with change from previous value: Date ?RIGHT DP ?? RIGHT PT ?? RT GR TOE ??RT Sec TOE ??0.74 ? 0.71 ? 0.47 ? ---- ??0.73(-.01) 0.75(+.04) 0.53(+.06) ---- ??0.90(+.17) 0.87(+.12) ---- ? ---- ??0.69(-.21) 0.75(-.12) 0.49 ? ---- ??0.80(+.11) 0.88(+.13) ---- ? ---- ??0.82(+.02) 0.84(-.04) ---- ? ---- ??0.63(-.19) 0.76(-.08) ---- ? ---- ??0.75(+.12) 0.80(+.04) 0.52 ? ---- ??0.88(+.13) 0.85(+.05) 0.49(-.03) ---- Current ? 0.71(-.17) 0.73(-.12) 0.53(+.04) ---- Date ?LEFT DP ?LEFT PT ?LT GR TOE LT Sec TOE ??0.25 ? 0.38 ? 0.25 ? ---- ??0.35(+.10) 0.47(+.09) 0.23(-.02) ---- ??0.46(+.11) 0.48(+.01) 0.22(-.01) ---- ??0.34(-.12) 0.38(-.10) 0.20(-.02) ---- ??0.41(+.07) 0.50(+.12) ---- ? ---- ??0.41( .00) 0.51(+.01) ---- ? ---- ??0.32(-.09) 0.44(-.07) ---- ? ---- ??0.36(+.04) 0.41(-.03) 0.20 ? ---- ??0.36( .00) 0.53(+.12) 0.27(+.07) ---- Current ? 0.41(+.05) 0.51(-.02) 0.27( .00) ---- Electronically Signed by: DEJON UPTON M.D. on 2023-01-01 08:35:12 AM VASCUBASE VB Text Report End of Report VASCUBASE 12/29/2022 10:5 2 AM EDT Norman Her MD VASCULAR ORDERABLES [facility] documented in this encounter Visit Diagnoses Diagnosis Bilateral carotid artery stenosis Occlusion and stenosis of multiple and bilateral precerebral arteries without mention of cerebral infarction PVD (peripheral vascular disease) Peripheral vascular disease, unspecified documented in this encounter Care Teams Associate Professor Of English Relationship Specialty Start Date End Date Sylvia Torrez, [employer] OFFICER [place] [address] [place] [address] PCP - General Family Medicine 08/03/21 documented as of this encounter
--- OUTSIDE RECORDS SUMMARY | 2024-03-11 16:14 | XMS_ITS | Encounter Summary ---
Author Organization [facility] [place] [address] Care Team Providers Care Night Auditor Name Role Phone Pauline Gannon APRN Primary Care Provider [phone] Reason for Referral * Physical Therapy (Routine) - Closed Specialty Diagnoses / Procedures Referred By Indira whitfield Referred To Contact Diagnoses History of bilateral knee replacement Mundo Ridley MD [address] [place] [address] Unknown None Referral ID Status Reason Start Date Expiration Date V isits Requested Visits Authorized [id number] Closed Evaluate and Treat 09/22/2020 03/21/2021 12 12 Reason for Visit * Reason Comments Bilateral Knee Pain * Consultation (Routine) - Closed Specialty Diagnoses / Procedures Referred By Indira whitfield Referred To Contact Orthopaedics Diagnoses LEFT Knee OA Pauline Gannon APRN [address] [place] [address] [place] [address] Mundo Ridley MD [address] [place] [address] Referral ID Status Reason Start Date Expiration Date V isits Requested Visits Authorized [id number] Closed Consult, Test & Treat 08/23/2020 08/23/2021 1 1 Encounter Details Date Type Department Care Team (Late st Contact Info) Description 09/22/2020 1:30 PM EDT Office Visit [facility]opaedics at [facility] [address] [place] [address] [place] [address] History of bilateral knee replacement (Primary Dx) Social History Tobacco Use Types Packs/Day Years [...] Sign Reading Time Taken Comments Blood Pressure - - Pulse - - Temperature - - Respiratory Rate - - Oxygen Saturation - - Inhaled Oxygen Concentration - - Weight 68 kg (150 lb) 09/22/2020 1:20 PM EDT Height 157.5 cm (5' 2) 09/22/2020 1:20 PM EDT Body Mass Index 27.44 09/22/2020 1:20 PM EDT documented in this encounter Progress Notes * Mundo Ridley MD - 09/22/2020 1:30 PM EDT CHIEF COMPLAINT: Chief Complaint Patient presents with ??? Bilateral Knee Pain Workers Compensation. no. PCP: KAVON Martinez presents to clinic for orthopedic consultation at the request of Pauline Gannon HPI: Jenn Garcia is a 74 y.o. year old female being seen today to discuss pain of the anterior and lateral aspect of the bilateral knee(S). She reports the pain ismild and moderate and is dull and achyin nature and occurs frequent She states the knee issue began a couple years ago. The patient reports the knee complaint occurredgradually with no history of injury. she is full weight bearing She reports climbing or going down stairs, getting up from a chair and walking on uneven ground aggravate her knee complaint. She also reports decreased walking tolerance , night pain and stiffness in association to her knee complaint. The patient has tried the following treatments: Supportive: Brace/Wrap: no Ice/Heat: no Rest/Elevation:yes with slight improvement Medications: Tylenol as needed Physical Therapy : no Joint Injections: no Surgery: yes B/L TKR 06/27/2005 at [facility] with and . Imaging: bilateral knee X-ray series were performed recently The imaging was available and reviewed in clinic with the patient. The findings are documented in the physical exam below. Review of Systems: Constitutional: Denies fever, chills, fatigue Cardiovascular: Denies chest pain Respiratory: Denies shortness of breath Gastrointestinal: Denies nausea, vomiting, diarrhea, constipation or abdominal pain Neurovascular: Denies numbness or tingling Musculoskeletal: Admits bilateral knee pain Psychiatric: Mood and affect appropriate PHYSICAL EXAM: Ht 157.5 cm (5' 2) Wt 68 kg (150 lb) BMI 27.44 kg/m?? Constitutional : well-developed, well-nourished, well-groomed, body habitus normal Head/Face : Atraumatic, normocephalic General: alert and oriented. She appears in no acute discomfort and is resting comfortably in a chair in the exam room. Gait/Station: Normal gait, Station normal . Right lower extremity : Hip: full and painless ROM , no tenderness to palpation Thigh: no tenderness, no ecchymosis, no swelling Knee : Inspection/Palpation: No tenderness, no ecchymosis, no effusion, no warmth ROM: 0 degrees of extension to 120 degrees of flexion Stability:no valgus or varus instability present , anterior drawer negative, posterior drawer negative Strength: no weakness present muscle strength 5/5 Tests and signs : active straight leg raise with no pain Lower leg: No tenderness to palpation, no swelling, no ecchymosis Muscle tone: tone normal Left lower extremity : Hip: full and painless ROM , no tenderness to palpation Thigh: no tenderness, no ecchymosis, no swelling Knee : Inspection/Palpation: No tenderness, no ecchymosis, no effusion, no warmth ROM: 0 degrees of extension to 107 degrees of flexion Stability: no valgus or varus instability present , anterior drawer negative, posterior drawer negative Strength: no weakness present muscle strength 5/5 Tests and signs : active straight leg raise with no pain Lower leg: No tenderness to palpation, no swelling, no ecchymosis Muscle tone: tone normal Skin: no erythema present, no ecchymosis present, no signs of skin lesions or infection Sensation: : sensation to light touch intact in lower extremities, neurovascularly intact Mental status Examination: grossly oriented to person, place and time Mood and Affect: mood normal, affect appropriate Assessment/Plan: Jenn is a 74-year-old female who is 15 years status post bilateral total knee arthroplasty that was done by myself and Dr. Florentin King. In general her knees are functioning well, but she tells me when she stands up for instance from a seated position she gets some aching. She also has a vascular disease, and when she goes for prolonged walks she has aching in her calves, she is not sure if this is related to the vascular disease or knee replacements. There is been no swelling, no warmth, no infection history no trauma history. Her radiographs show excellent implant position bilaterally. Examination today shows no evidence of a synovitis no effusion no warmth and well-healed incisions with preserved range of motion. I reassured her at this point that there was nothing that I saw on the x-rays that was alarming to me, her implants remain well fixed and well she probably does have some polyethylene wear over this last 15 years, and has not manifest as a synovitis or as a warm or inflamed knee. Range of motion ispreserved. At this point she really needs to get back to doing exercise, something that she admits she really does not do. She does no exercises in the morning, does not walk. Mostly she does housework according to her . When she does have pain she takes a Tylenol. I suggested Advil or Alevewould be more effective. I also sent her to physical therapy so that she could get a refresher for e xercises to regain muscle strength in the lower extremities. I Cathy Belle am acting as scribe for Mundo Ridley MD. All work documented was performed by Mundo Ridley MD. IMundo MD personally performed the services described in this documentation, as scribed by Cathy Belle is both accurate and complete. documented in this encounter Plan of Treatment Scheduled Referrals Name Type Priority Associated Diagnoses Orde r Schedule Referral to Physical Therapy Outpatient Referral Routine History of bilateral knee replacement Ordered: 09/22/2020 documented as of this encounter Visit Diagnoses Diagnosis History of bilateral knee replacement- Primary documented in this encounter Care Teams Night Auditor Relationship Specialty Start Date End Date Pauline Gannon, DI[employer]OND [employer] OPERATOR [address] [place] [address] PCP - General Family Medicine 09/03/17 08/02/21 documented as of this encounter
--- OUTSIDE RECORDS SUMMARY | 2024-03-11 16:14 | XMS_ITS | Encounter Summary ---
Author Organization [facility] [place] [address] Care Team Providers Care Pattern Attendant Name Role Phone Pauline Gannon APRN Primary Care Provider [phone] Encounter Details Date Type Department Care Team (Latest Contact Info) Description 09/22/2020 1:15 PM EDT Ancillary Procedure Radiology XRay at the [facility] at [facility] [address] [facility] [place] [address] Mundo Ridley MD [address] [place] [address] History of bilateral knee replacement DOS: 06/27/2005; Pain in both knees, unspecified chronicity Social History Tobacco Use Types Packs/Day Years [...] Procedure Name Priority Date/Time Associated Diagnosis Comments XR KNEE AP LAT AXIAL PATELLA BILAT Routine 09/22/2020 1:05 PM EDT History of bilateral knee replacement DOS: 06/27/2005 Pain in both knees, unspecified chronicity documented in this encounter Results * XR Knee 3 Views Bilat (09/22/2020 1:05 PM EDT) Anatomical Region Laterality Modality Knee Bilateral Digital Radiogra phy Impressions 09/22/2020 1:32 PM EDT Uncomplicated bilateral TKA Thank you for letting us participate in the care of this patient. ??If you are a health care provider and have any questions regarding this report, please contact the number below. ??For patients who have questions please contact the health resident care manager rn that requested your imaging first. ? Narrative 09/22/2020 1:32 PM EDT EXAMINATION: XR KNEE 3 VIEWS BILAT CLINICAL HISTORY: assess knee pain and healing TECHNIQUE: 3 views BILATERAL knee COMPARISON: 09/05/2017 FINDINGS: There are bilateral total knee arthroplasties in unchanged alignment. There is no periprosthetic lucency or fracture. No large joint effusions. Dystrophic calcifications and clips overlie the medial soft tissues of the left thigh. Procedure Note Sarah Mehta MD - 09/22/2020 EXAMINATION: XR KNEE 3 VIEWS BILAT CLINICAL HISTORY: assess knee pain and healing TECHNIQUE: 3 views BILATERAL knee COMPARISON: 09/05/2017 FINDINGS: There are bilateral total knee arthroplasties in unchanged alignment.There is no periprosthetic lucency or fracture. No large joint effusions.Dystrophic calcifications and clips overlie the medial soft tissues of the leftthigh. IMPRESSION Uncomplicated bilateral TKA Thank you for letting us participate in the care of this patient. If youare a health care provider and have any questions regarding this report,please contact the number below. For patients who have questions please contactthe health resident care manager rn that requested your imaging first. Mundo Ridley MD IMG DX ORDERABLES documented in this encounter Visit Diagnoses Diagnosis History of bilateral knee replacement DOS: 06/27/2005 Pain in both knees, unspecified chronicity documented in this encounter Care Teams Pattern Attendant Relationship Specialty Start Date End Date Pauline Gannon, ENVIRONMENTAL ENGINEERING MANAGER [address] [place] [address] PCP - General Family Medicine 09/03/17 08/02/21 documented as of this encounter
--- OUTSIDE RECORDS SUMMARY | 2024-03-11 16:14 | XMS_ITS | Encounter Summary ---
[facility] [place] [address] Care Team Providers Care Case Planner Name Role Phone Deloris Bello APRN Primary Care Provider [phone] Encounter Details Date Type Department Care Team (Late st Contact Info) Description 06/05/2016 Telephone [place] [id number] Jeanna Herrera Social History Tobacco Use Types Packs/Day Years [...] encounter Miscellaneous Notes * Telephone Encounter - Jeanna Marsh - 06/05/2016 11:45 AM EST LVM on home #. BZ would like to set up a phone conversation with this patient for tomorrow afternoon (shooting for around 3pm). documented in this encounter Plan of Treatment Not on file documented as of this encounter Visit Diagnoses Not on filedocumented in this encounter Care Teams Case Planner Relationship Specialty Start Date End Date Deloris Bello APRN PCP - General Family Medicine 03/15/15 07/02/16 documented as of this encounter
--- OUTSIDE RECORDS SUMMARY | 2024-03-11 16:14 | XMS_ITS | Encounter Summary ---
Author Organization [facility] [place] [address] Care Team Providers Care Quote Clerk Name Role Phone Pauline Gannon APRN Primary Care Provider [phone] Encounter Details Date Type Department Care Team (Late st Contact Info) Description 09/07/2020 Abstract Orthopaedics at [facility] [address] [facility] [place] [id number] Cathy Belle, LAUREANO Social History Tobacco Use Types Packs/Day Years [...] on filedocumented in this encounter Care Teams Quote Clerk Relationship Specialty Start Date End Date Pauline Gannno APRN [address] [place], [place] [id number] PCP - General Family Medicine 09/03/17 08/02/21 documented as of this encounter
--- OUTSIDE RECORDS SUMMARY | 2024-03-11 16:14 | XMS_ITS | Encounter Summary ---
Author Organization [facility] Address [facility] [place] [address] Care Team Providers Care Cloud Systems Administrator Name Role Phone Grayson Mcduffie MD Primary Care Provider [phone] Encounter Details Date Type Department Care Team (Late st Contact Info) Description 05/28/2014 Orders [place] [address] Alison Arellano APRN [facility] [place] [address] Aftercare following joint replacement Social History Tobacco Use Types Packs/Day Years [...] as of this encounter Visit Diagnoses Diagnosis Aftercare following joint replacement documented in this encounter Care Teams Cloud Systems Administrator Relationship Specialty Start Date End Date Grayson Mcduffie MD PCP - General 03/29/10 03/14/15 documented as of this encounter
--- OUTSIDE RECORDS SUMMARY | 2024-03-11 16:14 | XMS_ITS | Encounter Summary ---
Author Organization [facility] Address [facility] [place] [address] Care Team Providers Care Teacher'S Assistant Name Role Phone Grayson Mcduffie MD Primary Care Provider [phone] Reason for Visit * Reason Comments Follow-up Encounter Details Date Type Department Care Team (Late st Contact Info) Description 07/17/2011 3:00 PM EDT Follow-Up [place] [address] Maria Cameron MD [facility] [place] [address] PAD (peripheral artery disease) (Primary Dx); PVD (peripheral vascular disease); Polymyalgia rheumatica; DJD (degenerative joint disease); Carotid disease, bilateral Discharge Disposition: Home Social History Tobacco Use Types Packs/Day Years Used Date Smoking Tobacco: Former Sex and Gender Information Value Date Recorded Sex Assigned at Not on file Gender Identity Not on file Sexual Orientation Not on file documented as of this encounter Last Filed Vital Signs Vital Sign Reading Time Taken Comments Blood Pressure 127/65 07/17/2011 2:34 PM EDT Pulse 88 07/17/2011 2:34 PM EDT Temperature - - Respiratory Rate 20 07/17/2011 2:34 PM EDT Oxygen Saturation 98% 07/17/2011 2:34 PM EDT Inhaled Oxygen Concentration - - Weight 83.9 kg (185 lb) 07/17/2011 2:34 PM EDT Height 157.5 cm (5' 2) 07/17/2011 2:34 PM EDT Body Mass Index 33.84 07/17/2011 2:34 PM EDT documented in this encounter Progress Notes * Hoel, Lucas W, MD - 07/17/2011 3:26 PM EDT Subjective: Patient ID: Jenn Garcia is a 65 y.o. female. HPI 65yo non-diabetic woman with longstanding history of PVOD and s/p failed right fem-pop bypass with vein presents for routine follow-up of her vascular disease. She continues to claudicate in the leftlower extremity at ~1/4 mile. However, this does not limit her ability to function on a daily basisat this point and she is able to work and carry out her ADLs without difficulty. She denies symptoms of rest pain and continues with meticulous care of her feet including wearing socks and well-fitting shoes at all times. Review of Systems Patient Active Problem List Diagnoses ??? Polymyalgia rheumatica Hx steroid use. ??? DJD (degenerative joint disease) S/p bilateral TKA ??? PVD (peripheral vascular disease) 1. Left fem-pop bypass graft with vein, OSH, September 2004 for ischemic rest pain. BPG thrombosed on POD1, salvaged with thrombectomy and revision. Post-op thigh wound infection, eventually resolved. Latepost-op intimal hyperplasia, treated with cryoplasty at [facility] in Mar 10. Progressive diffuse intimalhyperplasia and bypass graft thrombosis early in 2004. 2. LLE ischemic rest pain did not recur following thrombosis of her bpg. ABIs in Jan 09, 0.38. RAO 0.36 on 01/05/06. RAO 0.29 on 02/25/07. RAO 0.38 on 03/10/08. RAO 0.47 with TBI 0.23 on 03/10/09. No change 05/18/10. 3. RLE PAD with ABIs 0.34 in Apr 09, 0.56 in May 11, and 0.71 in Jan 09. RAO 0.73 on 01/05/06. RAO 0.61 on 02/25/07. RAO 0.74 on 03/10/08. RAO 0.75 with TBI 0.53 on 03/10/09. RAO 0.90 on 05/18/10. ??? Carotid stenosis Current outpatient prescriptions: atorvastatin (LIPITOR) 40 mg tablet, , Disp: , Rfl: ; amitriptyline (ELAVIL) 25 mg tablet, , Disp: , Rfl: ; CALCIUM ORAL, , Disp: , Rfl: ; aspirin (ECOTRIN LOW STRENGTH) 81 mg EC tablet, , Disp: , Rfl: ; ferrous sulfate 325 mg (65 mg Iron) tablet, , Disp: , Rfl: ; hydrochlorothiazide (HYDRODIURIL) 25 mg tablet, No Known Allergies Objective: Physical Exam Constitutional: She appears well-developed and well-nourished. Neck: Normal range of motion. Neck supple. No JVD present. Cardiovascular: Normal rate, regular rhythm and normal heart sounds. Pulses: Carotid pulses are 2+ on the right side, and 2+ on the left side. Radial pulses are 2+ on the right side, and 2+ on the left side. Femoral pulses are 2+ on the right side, and 2+ on the left side. Dorsalis pedis pulses are 1+ on the right side, and 0 on the left side. Posterior tibial pulses are 0 on the left side. Left foot warm and pink. Slightest amount of dependent rubor. No cellulitis or ulceration. Right foot with a small corn on medial side of 4th toe. Otherwise pink and warm. Musculoskeletal: Normal range of motion. Lymphadenopathy: She has no cervical adenopathy. Neurological: She is alert. Skin: Skin is warm and dry. Psychiatric: She has a normal mood and affect. Filed Vitals: 07/17/11 1434 BP: 127/65 Pulse: 88 Resp: 20 RAO, today: Right Pressure (mmHg) RAO Waveform TBI Brachial Artery 154 Dorsalis Pedis (Ankle) Artery 106 0.69 Biphasic Posterior Tibial (Ankle) Artery 115 0.75 Biphasic Great Toe 75 0.49 Left Pressure (mmHg) RAO Waveform TBI Brachial Artery 150 Dorsalis Pedis (Ankle) Artery 52 0.34 Monophasic Posterior Tibial (Ankle) Artery 59 0.38 Monophasic Great Toe 31 0.20 Interpretation: RIGHT: Mild to moderate lower extremity arterial occlusive disease. Significant deterioration in DP compared to previous exam, No significant change in PT and toe index. LEFT: Moderately severe lower extremity arterial occlusive disease. No significant change compared to previous exam. Assessment and Plan: 65yo woman with PVD and left>right LE claudication. Her previous knee replacements have improvedher mobility and, while she does have claudication symptoms, she is not currently limited by this in her daily life. At this point, together, we have decided to continue with optimal medical management including aspirin and statin medication. I encouraged continued exercise and ambulation as well as meticulous foot care. We will plan to see her back in 1 year with a carotid duplex and repeat RAO.She will contact us earlier if there should be any changes in her symptoms. Note above this line was written by vascular fellow, Lucas Veras M.D. Vascular Attending Addendum: I interviewed and examined Mrs. Garcia along with Dr. Veras on this date. Overall, she is doing well and very pleased with walking ability despite ongoing PVD and slightly worse noninvasive findings today. I agree with the conservative plan outlined by Dr. Veras in this note. RTC one year with carotid and peripheral vascular follow-up. Routine warnings issued. Maria Cameron M.D. Section of Vascular Surgery documented in this encounter Plan of Treatment Not on file documented as of this encounter Results * RAO, legs, multiple levels (07/30/2012 2:29 PM EDT) VB Text Report Department: Vascular Surgery Lab Patient: [id number] (JENN GARCIA) CPT Code: 44925 ICD-9: 440.20 Referring Physician: MARIA CAMERON Indication: ??PVD Diabetes mellitus: ??No ICD9 Diagnosis Code: 440.20 Definitions: ??RAO = Ankle / Brachial Systolic Pressure Index, TBI = Toe / Brachial Systolic Pressure Index Findings: Right ?Pressure (mmHg) ?? RAO ??Waveform ?? Brachial Artery ?162 ? Dorsalis Pedis (Ankle) Artery ?130 ?0.80 ??Biphasic ?? Posterior Tibial (Ankle) Artery ??142 ?0.88 ??Biphasic ?? Left ? Pressure (mmHg) ?? RAO ??Waveform ? Brachial Artery ?156 ? Dorsalis Pedis (Ankle) Artery ?66 ? 0.41 ??[place]-Biphasic ?? Posterior Tibial (Ankle) Artery ??81 ? 0.50 ??[place]-Biphasic ?? Interpretation: RIGHT: Mild lower extremity arterial occlusive disease. No significant change compared to previous exam 07/17/11. LEFT: Moderately severe lower extremity arterial occlusive disease. No significant change compared to previous exam 07/17/11. Previous ABIs with change from previous value: Date RIGHT DP RIGHT PT RIGHT GR TOE LEFT DP LEFT PT LEFT GR TOE 0.74 0.71 0.47 0.25 0.38 0.25 0.73 (-0.01) 0.75 (+0.04) 0.53 (+0.06) 0.35 (+0.10) 0.47 (+0.09) 0.23 (-0.02) 0.90 (+0.17) 0.87 (+0.12) ---- 0.46 (+0.11) 0.48 (+0.01) 0.22 (-0.01) 0.69 (-0.21) 0.75 (-0.12) 0.49 0.34 (-0.12) 0.38 (-0.10) 0.20 (-0.02) Current Exam 0.80 (+0.11) 0.88 (+0.13) ---- 0.41 (+0.07) 0.50 (+0.12) ---- Signed by MARIA CAMERON on 2012-07-30 03:44:56 PM VASCUBASE 07/30/2012 2:29 PM EDT Maria Cameron MD VASCULAR ORDERABLES VASCUBASE * Cerebrovascular Duplex, Bilateral (07/30/2012 2:29 PM EDT) VB Text Report Department: Vascular Surgery Lab Patient: [id number] (JENN GARCIA) CPT Code: 57991 ICD-9: 433.10 Referring Physician: MARIA CAMERON Indication: ?? following carotid disease, ? progression ICD9 Diagnosis Code: 433.10 Findings: ICA Proximal, Right ? PSV (cm/s): 52 ? EDV (cm/s): 16 ? ICA/CCA: 0.7 ? Plaque Structure: Echogenic ? Plaque Surface: Smooth ? %Stenosis: <15% ICA Distal, Right ? PSV (cm/s): 111 ? EDV (cm/s): 32 ? ICA/CCA: 1.4 CCA Distal, Right ? PSV (cm/s): 77 ? EDV (cm/s): 15 ? %Stenosis: Minimal CCA Proximal, Right ? PSV (cm/s): 95 ? EDV (cm/s): 18 External Carotid Artery, Right ? PSV (cm/s): 62 ? EDV (cm/s): 8 ? %Stenosis: <50% Vertebral, Right ? PSV (cm/s): 67 ? EDV (cm/s): 23 ICA Proximal, Left ? PSV (cm/s): 64 ? EDV (cm/s): 19 ? ICA/CCA: 0.9 ? Plaque Structure: Echogenic ? Plaque Surface: Irregular ? %Stenosis: <15% ICA Distal, Left ? PSV (cm/s): 128 ? EDV (cm/s): 28 ? ICA/CCA: 1.7 CCA Distal, Left ? PSV (cm/s): 74 ? EDV (cm/s): 17 ? %Stenosis: Minimal CCA Proximal, Left ? PSV (cm/s): 116 ? EDV (cm/s): 20 External Carotid Artery, Left ? PSV (cm/s): 94 ? EDV (cm/s): 10 ? %Stenosis: <50% Vertebral, Left ? PSV (cm/s): 57 ? EDV (cm/s): 17 Interpretation: RIGHT: There is smooth plaque in the proximal internal carotid artery causing <15% stenosis when compared to the more distal internal carotid artery. The bifurcation level is in the mid neck. No significant change compared to previous exam of 05/18/2010. LEFT: There is irregular plaque in the proximal internal carotid artery causing <15% stenosis when compared to the more distal internal carotid artery. The bifurcation level is in the mid neck. No significant change compared to previous exam 05/18/2010. Vertebral Artery Data: Antegrade blood flow with normal Doppler waveforms and velocities bilaterally. Previous Carotid Studies: Date RIGHT ICA Stenosis PSV Ratio LEFT ICA Stenosis PSV Ratio 16-49% 77 n/a 16-49% 72 n/a <15% 70 1.89 <15% 127 1.53 Current Exam <15% 52 1.44 <15% 64 1.73 Accuracy Data: The following statistics are based on comparisons performed at [facility] between noninvasive carotid artery duplex data and arteriographic evaluation of the same patients from 9511-4100. Q / A Sens. Spec. PPV NPV Accuracy Carotid 93% 98% 97% 95% 96% Signed by MARIA CAMERON on 2012-08-05 12:38:25 PM VAS[facility]BASE 07/30/2012 2:29 PM EDT Maria Cameron MD VASCULAR ORDERABLES VASCUBASE * RAO, legs, multiple levels (07/17/2011 2:09 PM EDT) Pathologist [facility] VB Text Report Department: Vascular Surgery Lab Patient: [id number] (JENN GARCIA) CPT Code: 68418 ICD-9: 447.1 Referring Physician: MARIA CAMERON Indication: ??Claudication Diabetes mellitus: ?? no ICD9 Diagnosis Code: 447.1 Definitions: ??RAO = Ankle / Brachial Systolic Pressure Index, TBI = Toe / Brachial Systolic Pressure Index Findings: Right ?Pressure (mmHg) ?? RAO ??Waveform ? TBI Brachial Artery ?154 Dorsalis Pedis (Ankle) Artery ?106 ?0.69 ??Biphasic Posterior Tibial (Ankle) Artery ??115 ?0.75 ??Biphasic Great Toe ?75 ? 0.49 Left ? Pressure (mmHg) ?? RAO ??Waveform ? TBI Brachial Artery ?150 Dorsalis Pedis (Ankle) Artery ?52 ? 0.34 ??Monophasic Posterior Tibial (Ankle) Artery ??59 ? 0.38 ??Monophasic Great Toe ?31 ? 0.20 Interpretation: RIGHT: Mild to moderate lower extremity arterial occlusive disease. Significant deterioration in DP compared to previous exam, No significant change in PT and toe index. LEFT: Moderately severe lower extremity arterial occlusive disease. No significant change compared to previous exam. Previous ABIs with change from previous value: Date RIGHT DP RIGHT PT RIGHT GR TOE LEFT DP LEFT PT LEFT GR TOE 0.74 0.71 0.47 0.25 0.38 0.25 0.73 (-0.01) 0.75 (+0.04) 0.53 (+0.06) 0.35 (+0.10) 0.47 (+0.09) 0.23 (-0.02) 0.90 (+0.17) 0.87 (+0.12) ---- 0.46 (+0.11) 0.48 (+0.01) 0.22 (-0.01) Current Exam 0.69 (-0.21) 0.75 (-0.12) 0.49 0.34 (-0.12) 0.38 (-0.10) 0.20 (-0.02) Signed by MARIA CAMERON on 2011-07-17 11:41:05 PM VASCU[facility] VB Text Report End of Report [facility] 07/17/2011 2:09 PM EDT Maria Cameron MD VASCULAR ORDERABLES VASCUBASE documented in this encounter Visit Diagnoses Diagnosis PAD (peripheral artery disease)- Primary Peripheral vascular disease, unspecified PVD (peripheral vascular disease) Peripheral vascular disease, unspecified Polymyalgia rheumatica DJD (degenerative joint disease) Osteoarthrosis, unspecified whether generalized or localized, unspecified site Carotid disease, bilateral Unspecified disorders of arteries and arterioles documented in this encounter Care Teams Teacher'S Assistant Relationship Specialty Start Date End Date Grayson Mcduffie MD PCP - General 03/29/10 03/14/15 documented as of this encounter
--- OUTSIDE RECORDS SUMMARY | 2024-03-11 16:14 | XMS_ITS | Clinical Summary ---
Author Organization [facility] Address [address] [place] [address] Care Team Providers Care Atomizer Assembler Name Role Phone Grayson Mcduffie MD Primary Care Provider [phone] Social History Tobacco Use Types Packs/Day Years Used Date Smoking Tobacco: Never Assessed Sex and Gender Information Value Date Recorded Sex Assigned at Not on file Gender Identity Not on file Sexual Orientation Not on file Plan of Treatment Health Maintenance Due Date Last Done Comments Hepatitis C Screen 1944 RSV Immunization ( o r 60+ Years) (1 - 1-dose 60+ series) 2004 Fall Risk Screening 2009 COVID-19 Vaccine (2022- season) 2023 Care Teams Atomizer Assembler Relationship Specialty Start Date End Date Grayson Mcduffie MD PCP - General 03/15/15
--- OUTSIDE RECORDS SUMMARY | 2024-03-11 16:14 | XMS_ITS | Encounter Summary ---
Author Organization [facility] [place] [address] Care Team Providers Care Waiter/Waitress Club Name Role Phone Grayson Mcduffie MD Primary Care Provider [phone] Encounter Details Date Type Department Care Team (Late st Contact Info) Description 11/10/2013 3:30 PM EDT Ancillary Appointment [place] [phone] Luiz Tomlinson, RVT Social History Tobacco Use Types Packs/Day Years [...] on filedocumented in this encounter Care Teams Waiter/Waitress Club Relationship Specialty Start Date End Date Grayson Mcduffie MD PCP - General 03/29/10 03/14/15 documented as of this encounter
--- OUTSIDE RECORDS SUMMARY | 2024-03-11 16:14 | XMS_ITS | Encounter Summary ---
Author Organization [facility] [place] [address] Care Team Providers Care Water Resource Engineering Specialist Name Role Phone Deloris Bello APRN Primary Care Provider [phone] Reason for Visit * Reason Comments [facility] Bilateral TKA DOS 25/10 Encounter Details Date Type Department Care Team (Late st Contact Info) Description 09/30/2015 2:00 PM EDT Office [place] [phone] Alison Arellano APRN [facility] [place] [address] History of bilateral knee replacement DOS: 06/27/2005 (Primary Dx) Social History Tobacco Use Types [...] Sign Reading Time Taken Comments Blood Pressure 138/61 09/30/2015 1:56 PM EDT Pulse 56 09/30/2015 1:56 PM EDT Temperature - - Respiratory Rate - - Oxygen Saturation - - Inhaled Oxygen Concentration - - Weight 68 kg (150 lb) 09/30/2015 1:56 PM EDT Height 157.5 cm (5' 2) 09/30/2015 1:56 PM EDT Body Mass Index 27.44 09/30/2015 1:56 PM EDT documented in this encounter Progress Notes * Alison Arlelano APRN - 09/30/2015 2:11 PM EDT Arthroplasty/Orthopaedic History: 1. Both knee TKA DOS: 06/27/[address] Ridley Right. HPI: Jenn Garcia is a very pleasant 69 y.o. year-old female who presents for an approximate 10 years follow-up of the above procedure. The patient has been doing well and her pain is markedly improved over preoperative status. She does report an occasional twinge of the VMO region of the left knee. Yet, Nothing long lasting. No mechanical or locking symptoms. No instability. No fevers, chills, nausea, vomiting, or symptoms of infection. Jenn has been ambulating with no assistive device and essentially independent with all ADL's. She is not taking narcotic pain medicine. No interval falls, injuries or infections. Her health is reportedly stable otherwise. Patient's medications, allergies, past medical, surgical, social and family histories were reviewedand updated as appropriate. ROS: Denies fever, chills, nausea, vomiting, vision change, shortness of breath, chest pain, visionchanges, headaches, bowel or bladder problem, ear, nose, sinus problem, neuro or psychiatric, or endocrine disorder not addressed above. Physical Exam: Vitals: 09/30/15 1356 BP: 138/61 Pulse: 56 Weight: 68 kg (150 lb) Height: 157.5 cm (5' 2) Body mass index is 27.44 kg/(m^2). Well-appearing female in no acute distress. Alert and Oriented x 3 and answers all questions appropriately. The incision is well healed, with no signs of infection. I have made the following determinations: Gait is steady and non-antalgic. SLR capability is strong. EHL/FHL 5/5. Post Op Right Knee Exam: Knee ROM: Extension:0 Flexion: 115 Alignment: 0-4 degrees Neutral Stability: A/P Translation <5mm. Varus <5mm Valgus <5mm Extension La degrees or less Patella Tracking: Normal Pulses Palpable: Right PT: Yes Right DP:Yes Motor/Sensory: Distal Motor: Normal Distal Sensory: Normal Quadriceps Strength: 5 Post Op Left Knee Exam: Knee ROM: Extension:0 Flexion: 120 Alignment: 0-4 degrees Neutral Stability: A/P Translation <5mm Varus <5mm Valgus <5mm Extension La degrees or less Patella Tracking: Normal Pulses Palpable: Left PT:Yes Left DP:Yes and No Motor/Sensory: Distal Motor: Normal Distal Sensory: Normal Quadriceps Strength:5 X-RAYS: Multiple radiographic views were obtained at my request and reviewed with the patient. X-rays show a well-placed prosthesis with no evidence of fracture, subsidence, loosening, or periprosthetic complication. The radiologist paged me to look at the LEFT lateral knee film. See report below. I do no think that this looks different from her previous x-rays and she is essentially asymptomatic. FINDINGS: ?? Compared to prior imaging there remains a small left suprapatellar joint effusion as well as calcifications in the soft tissues anteriorly likely related to superficial subcutaneous calcifications. There is a minimal radiolucency along the anterior flange of the distal femoral component. This is slightly more prominent than on prior imaging. No evidence for periprosthetic fracture. IMPRESSION Very small left suprapatellar joint effusion and an area of increased radiolucency adjacent to the anterior distal femoral flange of the prosthesis and cortical bone. Questionnaire Responses: [facility] Surgical Postop Visit 09/30/2015 PROMIS-10 General Health Good PROMIS-10 Quality of Life Good PROMIS-10 Physical Health Good PROMIS-10 Mental Health - PROMIS-10 Social Activity Good PROMIS-10 Everyday Activities Moderately PROMIS-10 Pain 6 PROMIS-10 Fatigue Moderate PROMIS-10 Social Roles Good PROMIS-10 Anxious or Depressed - PROMIS PHYSICAL HEALTH SCORE 39.8 PROMIS MENTAL HEALTH SCORE 0 Admitted to hospital since recent ortho surgery No Additional surgery on same body part No Orthopeadics [facility] Response 09/30/2015 KOOS-PS Scores 35.3 No flowsheet data found. ASSESSMENT/PLAN: Ms. Garcia is a 69 y.o. year old female who is approximately 10 years post-op and doing well. Continue weightbearing as tolerated and working on range of motion, and we will see her back in 2 years for repeat examination. X- rays will be needed at that time. I offered her an earlier appointment in 12 months to assess for changes of her x-ray yet she declined and tells me that she will call sooner for any problems or concerns. Patient may return to normal activities as her pain and function allow. We discussed the appropriate precautions surrounding dental prophylaxis. I stressed that she shouldcall the office for a prescription prior to any dental work for the lifetime of the joint replacement. We also discussed maintaining good foot care and giving prompt attention to any source of infection throughout the body including foot ulcers and urinary tract infections. All questions were answered. Signed: ALISON ARELLANO APRN 09/30/2015 documented in this encounter Plan of Treatment Not on file documented as of this encounter Visit Diagnoses Diagnosis History of bilateral knee replacement DOS: 06/27/2005- Primary documented in this encounter Care Teams Water Resource Engineering Specialist Relationship Specialty Start Date End Date Deloris Bello APRN PCP - General Family Medicine 03/15/15 07/02/16 documented as of this encounter
--- OUTSIDE RECORDS SUMMARY | 2024-03-11 16:14 | XMS_ITS | Encounter Summary ---
Author Organization [facility] Address [address] [place] [address] Care Team Providers Care Spooler Operator Name Role Phone Unavailable Primary Care Provider Unavailabl e Encounter Details Date Type Department Care Team (Late st Contact Info) Description 11/04/2002 Results Only [facility] - [facility] conversion [address] [place] [address] Jose Gunderson MD [address] [place] [address] Social History Tobacco Use Types Packs/Day Years Used Date Smoking Tobacco: Never Assessed Sex and Gender Information Value Date Recorded Sex Assigned at Not on file Gender Identity Not on file Sexual Orientation Not on file documented as of this encounter Plan of Treatment Not on file documented as of this encounter Procedures Procedure Name Priority Date/Time Associated Diagnosis Comments CYTOPATHOLOGY Routine 11/04/2002 0:00 EDT documented in this encounter Results * CYTOPATHOLOGY (11/04/2002 0:00 EDT) Pathology Report: CYTOPATHOLOGY REPORT Reports generated via electronic interface contain original data; however they are lacking the format of the original report. Caution should be taken when reading/interpreti ng unformatted reports. Name: ? JENN GARCIA ? Accession #: ? [id number] : ? 1945 (Age: 56) ??F ?Collect Date: ? 11/04/2002 Location: ? [facility] ? Receive Date: ? 11/06/2002 Provider: ?JOSE GUNDERSON MD Copy to: ? Specimen/Source: ?ThinPrep Pap Test, Cervix/Endocervix Last Menstrual Period: ? 1992 Previous Gynecologic Pathology: ? Yes: 10 years ago Other: ? HPVA - HPV testing requested if ASC-US on the current ThinPrep Pap test. ? SPECIMEN ADEQUACY ? Satisfactory for Evaluation - transformation zone component present GENERAL CATEGORIZATION ? Negative for Intraepithelial Lesion or Malignancy INTERPRETATION ? Reactive cellular changes associated with inflammation present (includes repair). ? Document reviewed and electronically signed by: ? SARAH GUILLEN MD ? Report Date: ??11/14/2002 16:36 End of Report [facility] 11/04/2002 11/06/2002 Jose Gunderson MD PATHOLOGY ORDERABLES Performing Organization Address City/State/[place] Co de Phone Number [facility] [address] [place] [address] documented in this encounter Visit Diagnoses Not on filedocumented in this encounter
--- OUTSIDE RECORDS SUMMARY | 2024-03-11 16:14 | XMS_ITS | Encounter Summary ---
Author Organization [facility] Address [facility] [place] [address] Care Team Providers Care Android Software Engineer Name Role Phone Grayson Mcduffie MD Primary Care Provider [phone] Encounter Details Date Type Department Care Team (Late st Contact Info) Description 07/17/2011 2:00 PM EDT Office [place] [phone] Richard Stewart [place] PAD (peripheral artery disease) Social History Tobacco Use Types Packs/Day Years Used Date Smoking Tobacco: Former Sex and Gender Information Value Date Recorded Sex Assigned at Not on file Gender Identity Not on file Sexual Orientation Not on file documented as of this encounter Plan of Treatment Not on file documented as of this encounter Procedures Procedure Name Priority Date/Time Associated Diagnosis Comments RAO, LEGS, MULTIPLE LEVELS Routine 07/17/2011 2:09 PM EDT PAD (peripheral artery disease) documented in this encounter Results * RAO, legs, multiple levels (07/17/2011 2:09 PM EDT) VB Text Report Department: Vascular Surgery Lab Patient: [id number] (REJI JENN) CPT Code: 21446 ICD-9: 447.1 Referring Physician: MARIA CAMERON Indication: [...] encounter Visit Diagnoses Diagnosis PAD (peripheral artery disease) Peripheral vascular disease, unspecified documented in this encounter Care Teams Android Software Engineer Relationship Specialty Start Date End Date Grayson Mcduffie MD PCP - General 03/29/10 03/14/15 documented as of this encounter
--- OUTSIDE RECORDS SUMMARY | 2024-03-11 16:14 | XMS_ITS | Encounter Summary ---
Author Organization [facility] [place] [address] Care Team Providers Care Microbiology Lab Technician Name Role Phone Juan DavidPauline wilkinson KAVON Primary Care Provider [phone] Encounter Details Date Type Department Care Team (Late st Contact Info) Description 03/02/2020 Orders [place] [phone] Angella Duvall, ZAID PVD (peripheral vascular disease) with claudication; Bilateral carotid artery stenosis Social History Tobacco Use Types Packs/Day Years [...] encounter Results * RAO, legs, multiple levels (08/03/2021 10:38 AM EDT) VB Text Report Department: Vascular Surgery Lab Patient: [id number] (JENN GARCIA) CPT: 94508 Referring Physician: NORMAN HER ?? Indications: PVD Diabetes mellitus: no Findings: Right ?Pressure (mm Hg) ?? RAO ??Waveform ? TBI ?? Brachial Artery ?128 ? Dorsalis Pedis (Ankle) Artery ?113 ? 0.88 ??Bi-Triphasic ? Posterior Tibial (Ankle) Artery ??109 ? 0.85 ??Bi-Triphasic ? Great Toe ?63 ?0.49 ?? Left ? Pressure (mm Hg) ?? RAO ??Waveform ? TBI ?? Brachial Artery ?128 ? Dorsalis Pedis (Ankle) Artery ?46 ?0.36 ??Monophasic ? Posterior Tibial (Ankle) Artery ??68 ?0.53 ??Monophasic ? Great Toe ?35 ?0.27 ?? Interpretation: RIGHT: Mild lower extremity [...] ? ---- ??0.75(+.12) 0.80(+.04) 0.52 ? ---- Current ? 0.88(+.13) 0.85(+.05) 0.49(-.03) ---- Date ?LEFT DP ?LEFT PT ?LT GR TOE LT Sec TOE ??0.25 ? 0.38 ? 0.25 ? ---- ??0.35(+.10) 0.47(+.09) 0.23(-.02) ---- ??0.46(+.11) 0.48(+.01) 0.22(-.01) ---- ??0.34(-.12) 0.38(-.10) 0.20(-.02) ---- ??0.41(+.07) 0.50(+.12) ---- ? ---- ??0.41( .00) 0.51(+.01) ---- ? ---- ??0.32(-.09) 0.44(-.07) ---- ? ---- ??0.36(+.04) 0.41(-.03) 0.20 ? ---- Current ? 0.36( .00) 0.53(+.12) 0.27(+.07) ---- Electronically Signed by: NORMAN HER on 2021-08-03 10:56:02 AM [facility] VB Text Report End of Report [facility] 08/03/2021 10:3 8 AM EDT Norman Her MD VASCULAR ORDERABLES [facility] documented in this encounter Visit Diagnoses Diagnosis PVD (peripheral vascular disease) with claudication Peripheral vascular disease, unspecified Bilateral carotid artery stenosis Occlusion and stenosis of multiple and bilateral precerebral arteries without mention of cerebral infarction documented in this encounter Care Teams Microbiology Lab Technician Relationship Specialty Start Date End Date Pauline Gannon, PUBLIC RELATIONS SPECIALIST [address] [facility] [place] [address] PCP - General Family Medicine 09/03/17 08/02/21 documented as of this encounter
--- OUTSIDE RECORDS SUMMARY | 2024-03-11 16:14 | XMS_ITS | Encounter Summary ---
Author Organization [facility] Address [address] [place] [address] Care Team Providers Care Capacity Planning Analyst Name Role Phone Unavailable Primary Care Provider Unavailabl e Encounter Details Date Type Department Care Team (Late st Contact Info) Description 03/31/2003 Results Only [facility] - Maple conversion [address] [place] [address] Jose Stacy MD [address] [place] [address] Social History Tobacco Use Types Packs/Day Years Used Date Smoking Tobacco: Never Assessed Sex and Gender Information Value Date Recorded Sex Assigned at Not on file Gender Identity Not on file Sexual Orientation Not on file documented as of this encounter Plan of Treatment Not on file documented as of this encounter Procedures Procedure Name Priority Date/Time Associated Diagnosis Comments SURGICAL PATHOLOGY Routine 03/31/2003 0:00 EST documented in this encounter Results * SURGICAL PATHOLOGY (03/31/2003 0:00 EST) Pathology Report: SURGICAL PATHOLOGY REPORT Reports generated via electronic interface contain original data; however they are lacking the format of the original report. Caution should be taken when reading/interpreti ng unformatted reports. Name: ? JENN GARCIA ? Accession #: ? [id number] ? : ? 1945 (Age: 57) ??F ? Collect Date: ? 03/31/2003 ? Location: ? [facility] ? Receive Date: ? 04/03/2003 ? Provider: CJ STACY MD Copy to: JOSE GUNDERSON MD ? Final Pathologic Diagnosis: A. ?Colon, descending, biopsy: 1. ?Fragments of colonic mucosa showing acute inflammation and surface erosion, consistent with ischemia. B. ?Colon, splenic flexure, biopsy: 1. ?Fragments of colonic mucosa showing acute inflammation and erosion, consistent with ischemic change. C. ?Colon, ascending, biopsy: 1. ?Fragments of benign colonic mucosa showing focal acute inflammation. Comment: ? Microscopic examination of the descending and splenic flexure biopsies shows marked acute inflammation and surface erosion with lamina propria edema. These findings are consistent with ischemic change. ??The biopsy of the ascending colon shows only a focal area of acute cryptitis. ??This case was reviewed at the intradepartmental consultation conference. ??(Dr. Serra)/[facility] Document reviewed and electronically signed by: Chino Serra MD Report ??Date: 04/06/2003 16:35 By the signature above, the attending physician certifies that he/she has personally conducted a gross and/or microscopic examination of the described specimens and rendered or confirmed the above diagnosis. Specimen(s) Received: A. ?Descending colon Bx (#1) B. ?Splenic flexure Bx (#2) C. ?Ascending colon Bx (#3) Clinical History: ? Anemia, wt loss; ulcerated areas in splenic flexure, descending colon; ? ischemia Gross Description: ? Received in [facility] labelled Jose and bx descending colon is a 0.2 x 0.1 x 0.1 cm damian soft tissue biopsy. ??Entirely submitted as (A). Received in [facility] labelled Jose and bx splenic flexure is a 0.2 x 0.1 x 0.1 cm damian soft tissue biopsy. ??Entirely submitted as (B). Received in [facility] labelled Jose and bx ascending colon are two damian soft tissue biopsies, 0.2 x 0.1 x 0.1 cm and 0.3 x 0.1 x 0.1 cm. ??Entirely submitted as (C). ??(Pam Paul)/abbie End of Report [facility] 03/31/2003 04/03/2003 8:5 1 EST Jose Stacy MD PATHOLOGY ORDERABLES [facility] [address] [place] [address] documented in this encounter Visit Diagnoses Not on filedocumented in this encounter
--- OUTSIDE RECORDS SUMMARY | 2024-03-11 16:14 | XMS_ITS | Encounter Summary ---
[place] [address] Care Team Providers Care Movement Assembly Final Inspector Name Role Phone Sylvia Torrez DIRECTOR SKILLS Primary Care Provider [phone] Encounter Details Date Type Department Care Team (Latest Contact Info) Description 02/08/2024 Travel Social History Tobacco Use Types Packs/Day Years [...] on filedocumented in this encounter Care Teams Movement Assembly Final Inspector Relationship Specialty Start Date End Date Sylvia Torrez, [place] [address] PCP - General Family Medicine 08/03/21 documented as of this encounter
--- OUTSIDE RECORDS SUMMARY | 2024-03-11 16:14 | XMS_ITS | Encounter Summary ---
Author Organization [facility] Address [facility] [place] [address] Care Team Providers Care Armament Mechanic Name Role Phone Grayson Mcduffie MD Primary Care Provider [phone] Encounter Details Date Type Department Care Team (Late st Contact Info) Description 01/15/2012 [place] [address] Mundo Ridley MD [address] [place] [address] S/P knee replacement (Primary Dx) Social History Tobacco Use Types Packs/Day Years Used Date Smoking Tobacco: Former Sex and Gender Information Value Date Recorded Sex Assigned at Not on file Gender Identity Not on file Sexual Orientation Not on file documented as of this encounter Plan of Treatment Not on file documented as of this encounter Results * XR knee bilateral1 or 2 view (05/13/2012 2:05 PM EST) Anatomical Region Laterality Modality Knee Bilateral Radiographic Aida ging 05/13/2012 2:05 PM EST Narrative 05/13/2012 3:11 PM EST Examination KNEE BILATERAL 1 OR 2 VIEWS Clinical History ANNL RCHCK BILAT TKA Comparison 03/10/2009 Technique AP and lateral views Findings No change or complication is identified. Procedure Note Nele Vaughan MD - 05/13/2012 Examination KNEE BILATERAL 1 OR 2 VIEWS Clinical History ANNL RCHCK BILAT TKA Comparison 03/10/2009 Technique AP and lateral views Findings No change or complication is identified. Mundo Ridley MD IMG DX ORDERABLES documented in this encounter Visit Diagnoses Diagnosis S/P knee replacement- Primary Knee joint replacement by other means S/P knee replacement Knee joint replacement by other means documented in this encounter Care Teams Armament Mechanic Relationship Specialty Start Date End Date Grayson Mcduffie MD PCP - General 03/29/10 03/14/15 documented as of this encounter
--- OUTSIDE RECORDS SUMMARY | 2024-03-11 16:14 | XMS_ITS | Continuity of Care Document ---
Author Organization [facility] Address [address] [place] [address] Encounter [facility] NBR [id number] Date(s): 12/16/23 - 12/16/23 [facility] [address] [place], [place] [address] Encounter Diagnosis Bee sting reaction(Discharge Diagnosis) - 12/16/23 Discharge Disposition: Home or Self Care Attending Physician: Smiley Mclain APRN Allergies, Adverse Reactions, Alerts No Known Allergies Assessment and Plan Extracted from: Title:Office Visit Note Author:Sue Mo PRN Date:12/16/23 1.??Bee sting reaction??T63. 441A Orders: predniSONE 20 mg oral tablet, 40 mg = 2 tab, Oral, Daily, # 10 tab, 0 Refill(s), Pharmacy: [id number], 66.68, kg, 12/16/23 11:44:00 EDT, Weight Dosing Medications amitriptyline 50 mg oral tablet 50 mg = 1 tab, Oral, TID, # 270 tab, 0 Refill(s) Start Date: 12/16/23 Status: Ordered atorvastatin 40 mg oral tablet 40 mg = 1 tab, Oral, Daily, # 30 tab, 0 Refill(s) Start Date: 12/16/23 Status: Ordered celecoxib 200 mg oral capsule 200 mg = 1 cap, Oral, BID, # 60 cap, 0 Refill(s) Start Date: 12/16/23 Status: Ordered lisinopril 20 mg oral tablet TAKE 1 TABLET BY MOUTH EVERY DAY Start Date: 12/16/23 Status: Ordered predniSONE 20 mg oral tablet 40 mg = 2 tab, Oral, Daily, # 10 tab, 0 Refill(s), Pharmacy: [id number], 66.68, kg, 12/16/23 11:44:00 EDT, Weight Dosing Start Date: 12/16/23 Stop Date: 12/21/23 Status: Ordered Vital Signs Most recent to oldest [Reference Range]: 1 Temperature Tympanic [36.6-38.1 Deg C] 3 6.7 Deg C (12/16/23 11:41 AM) Peripheral Pulse Rate [60-100 bpm] 58 bp m *LOW* (12/16/23 11:41 AM) Blood Pressure [90-140/60-90 mmHg] 129/5 8mmHg (12/16/23 11:41 AM) Mean Arterial Pressure, Cuff [65-140 mmH g] 82 mmHg (12/16/23 11:41 AM) Weight 66.68 kg (12/16/23 11:41 AM) Weight Measured (lbs) 147.004 lb (12/16/23 11:41 AM) Weight Dosing 66.680 kg (12/16/23 11:41 AM) Hospital Discharge Instructions Patient Education 12/16/2023 10:54:25 Bee, Wasp, or Hornet Sting, Adult Bee, Wasp, or Hornet Sting, Adult Bees, wasps, and hornets are part of a family of insects that sting. Normally, a sting will cause pain, redness, and swelling at the sting site. However, some people have an allergy to these stings, and their reactions can be much more serious. What increases the risk? You may be at a greater risk of getting stung if you: ??? Provoke a stinging insect by swatting or disturbing it. ??? Wear strong-smelling soaps, deodorants, or body sprays. ??? Spend time outdoors near gardens with radford or fruit trees or in clothes that expose skin. ??? Eat or drink outside. What are the signs or symptoms? The reaction to an insect sting can vary from a mild, normal response to life- threatening anaphylaxis. The sting site is often a red lump in the skin, sometimes with a tiny hole in the center, that may still have the stinger in the center of the wound. Normal reaction A normal reaction is experienced by most people after an insect sting. Symptoms include: ??? Pain, redness, and swelling at the sting site. These can develop over 24???48 hours. ??? Pain, redness, and swelling that may spread to a larger, connected area beyond the sting site. The spreading can continue over 24???48 hours. Allergic reaction An allergic reaction can vary in severity and includes symptoms in other areas of the body beyond the sting site. People who experience an allergic reaction have a higher risk of having similar or worse symptoms the next time they are stung. Symptoms may include: ??? Hives, itching, and swelling. ??? Abdominal symptoms including cramping, nausea, vomiting, and diarrhea. Severe symptoms that require immediate medical attention include: ??? Chest pain or tightness. ??? Wheezing or trouble breathing. ??? Swelling of the tongue, throat, or lips. ??? Trouble swallowing or hoarse voice. Anaphylactic reaction An anaphylactic reaction is a severe, life-threatening allergy and requires immediate medical attention. The symptoms often include severe allergic reaction symptoms that develop rapidly and lead to: ??? A sudden and sharp drop in blood pressure. ??? Dizziness. ??? Loss of consciousness. How is this diagnosed? This condition is usually diagnosed based on your symptoms and medical history as well as a physical exam. You may have an allergy test to determine if you are allergic to the insect venom. How is this treated? If you were stung by a bee, the stinger and a small sac of venom may be in the wound. Remove the stinger as soon as possible. Do this by brushing across the wound with gauze, a clean fingernail, or aflat card such as a credit card. This can help reduce the severity of your body's reaction to the sting. Normal reactions can be treated with: ??? Washing the area thoroughly with soap and water. ??? Applying ice to the area to reduce swelling. ??? Oral or topical medicines to help reduce pain and itching, if present. Pay close attention to your symptoms after you have been stung. If possible, have someone stay withyou to see if an allergic reaction develops. If allergic symptoms develop, oral antihistamines can be taken and you will need medical help right away. If you had an allergic reaction before, you may need to: ??? Use an auto-injector pen(pre-filled automatic epinephrine injection device)at the first sign of an allergic reaction. ??? Get medical help right away because the epinephrine is short-acting. It is intended to give youmore time to get to an emergency room. Follow these instructions at home: ??? Wash the sting site 2???3 times a day with soap and water as told by your health care provider. ??? Apply or take [id number] and prescription medicines only as told by your health care provider. ??? If directed, apply ice to the sting area. ??? Put ice in a plastic bag. ??? Place a towel between your skin and the bag. ??? Leave the ice on for 20 minutes, 2???3 times a day. ??? Do not scratch the sting area. ??? If you had a severe allergic reaction to a sting, you may need to: ??? Wear a medical bracelet or necklace that lists the allergy. ??? Carry an anaphylaxis kit or an epinephrine auto-injector pen with you at all times. Tell yourfamily members, friends, and coworkers when and how to use it. Use it at the first sign of an allergic reaction. How is this prevented? Avoid swatting at stinging insects and disturbing insect nests. ??? Do not use fragrant soaps or lotions and avoid sitting near flowering plants, if possible. ??? Wear shoes, pants, and long sleeves when spending time outdoors, especially in grassy areas where stinging insects are common. ??? Keep outdoor areas free from nests or hives. ??? Keep food and drink containers covered when eating outdoors. ??? Wear gloves if you are gardening or working outdoors. ??? Find a barrier between you and the insect(s), such as a door, if an attack by a stinging insector a swarm seems likely. Contact a health care provider if: ??? Your symptoms do not get better in 2???3 days. ??? You have redness, swelling, or pain that spreads beyond the area of the sting. ??? You have a fever. Get help right away if: You have symptoms of a severe allergic reaction. These include: ??? Chest tightness or pain. ??? Wheezing, or trouble swallowing or breathing. ??? Light-headedness, dizziness, or fainting. ??? Itchy, raised, red patches on the skin beyond the sting site. ??? Abdominal cramping, nausea, vomiting, or diarrhea. ??? Trouble swallowing or a swollen tongue, throat, or lips. These symptoms may be an emergency. Get help right away. Call 911. ??? Do not wait to see if the symptoms will go away. ??? Do not drive yourself to the hospital. Summary ??? Stings from bees, wasps, and hornets can cause pain and swelling, but they are usually not serious. However, some people may have an allergic reaction to a sting. This can cause the symptoms to be more severe. ??? Pay close attention to your symptoms after you have been stung. If possible, have someone stay with you to look for signs of worsening symptoms. ??? Call your health care provider if you have any signs of an allergic reaction. This information is not intended to replace advice given to you by your health care provider. Make sure you discuss any questions you have with your health care provider. Document Revised: 06/20/2022 Document Reviewed: 06/20/2022 [employer] Patient Education ?? 2022 [employer]. Physician Outpatient Note * Smiley Mclain, INSPECTION ENGINEER: PERFORM Event Display: Office Clinic Note Physician Authored Date: [id number] AGUILA MENDOZA :1945 Age:78 years Sex:Female Visit Date:12/16/2023 Chief Complaint stung by yellow jackets yesterday on her left nhand and arm, she has been taking benadryl with no improvemnt of the swelling. History of Present Illness Patient is a 78-year-old female who presents today with a chief complaint??of??bee sting. ??She reports yesterday??stung in her left hand and arm by some yellow jackets. ??She states that she has been taking Benadryl??without improvement. ??Reports??itching and swelling in the hand and arm??she denies any shortness of breath, tongue swelling,?? facial??swelling. Review of Systems see hpi Physical Exam Vitals & Measurements T:??36.7?C ??(Tympanic)?? HR:??58??(Peripheral)?? BP:??129/58?? SpO2:??98%?? WT:??66.68??kg?? Pain Score:??3?? Upper extremity with scattered??urticaria, swelling of the hand. ??Lungs are clear Medical Decision Making: She was evaluated for??bee sting. ??She reports taking Benadryl without much effect. ??She was started on??steroids, I did recommend that she continue to monitor for any worsening signs or symptoms follow-up with her primary care for lack of improvement. ??Seek urgent or emergent care for any worsening or concerning symptoms Assessment/Plan 1.??Bee sting reaction??T63.441A Orders: predniSONE 20 mg oral tablet, 40 mg = 2 tab, Oral, Daily, # 10 tab, 0 Refill(s), Pharmacy: [id number], 66.Juwan, kg, 12/16/23 11:44:00 EDT, Weight Dosing Patient Instructions Take prednisone as instructed, do not take on empty stomach, preferably??taken in the morning so itdoes not disrupt sleep.?You??may continue diphenhydramine for itching. ??Follow-up with your primary care for lack of improvement. ??Seek urgent or emergent care for any worsening or concerning sy mptoms Patient Education Bee, Wasp, or Hornet Sting, Adult Problem List/Past Medical History Ongoing No qualifying data Historical No qualifying data Medications amitriptyline 50 mg oral tablet, 50 mg= 1 tab, Oral, TID atorvastatin 40 mg oral tablet, 40 mg= 1 tab, Oral, Daily celecoxib 200 mg oral capsule, 200 mg= 1 cap, Oral, BID lisinopril 20 mg oral tablet predniSONE 20 mg oral tablet, 40 mg= 2 tab, Oral, Daily Allergies No Known Allergies Electronically Signed on 12/16/2023 15:59 EDT Smiley Mclain APRN Outpatient Summary note * Smiley Mclain APRN: PERFORM Event Display: Ambulatory Patient Summary Authored Date: [id number] REJIAGUILA :1945 Age:78 years Sex:Female Visit Date:12/16/2023 Ambulatory Visit Instructions We would like to thank you for allowing us to assist you with your healthcare needs. The following includes patient education materials and information regarding your injury/illness. Your Next Steps Instructions From Your Care Team Take prednisone as instructed, do not take on empty stomach, preferably??taken in the morning so itdoes not disrupt sleep.?You??may continue diphenhydramine for itching. ??Follow-up with your primary care for lack of improvement. ??Seek urgent or emergent care for any worsening or concerning sy mptoms Medications What How Much When Instructions New predniSONE (predniSONE 20 mg oral tablet) 2 tab Oral (given by mouth) Every day Duration: 5 Days Pickup at [facility] Unchanged amitriptyline (amitriptyline 50 mg oral tablet) 1 tab Oral (given by mouth) 3 times a day Unchanged atorvastatin (atorvastatin 40 mg oral tablet) 1 tab Oral (given by mouth) Every day Unchanged celecoxib (celecoxib 200 mg oral capsule) 1 Capsules Oral (given by mouth) 2 times a day Unchanged lisinopril (lisinopril 20 mg oral tablet) TAKE 1 TABLET BY MOUTH EVERY DAY ?? Pharmacy Information [facility]: [address], [place] [id number] [phone] Your Summary Your Diagnosis Bee sting reaction Your Care Team Attending Physician - Smiley Mclain APRN Discharge Vitals Temperature??(Tympanic) 98.1 ??F (36.7 ??C) Heart Rate??(Peripheral) 58 Blood Pressure?? 129/58?? SpO2?? 98% Weight?? 147.03 lb (66.68 kg) Allergies No Known Allergies Education Materials Bee, Wasp, or Hornet Sting, Adult Bees, wasps, and hornets are part of a family of insects that sting. Normally, a sting will cause pain, redness, and swelling at the sting site. However, some people have an allergy to these stings, and their reactions can be much more serious. What increases the risk? You may be at a greater risk of getting stung if you: ? Provoke a stinging insect by swatting or disturbing it. ? Wear strong-smelling soaps, deodorants, or body sprays. ? Spend time outdoors near gardens with radford or fruit trees or in clothes that expose skin. ? Eat or drink outside. What are the signs or symptoms? The reaction to an insect sting can vary from a mild, normal response to life- threatening anaphylaxis. The sting site is often a red lump in the skin, sometimes with a tiny hole in the center, that may still have the stinger in the center of the wound. Normal reaction A normal reaction is experienced by most people after an insect sting. Symptoms include: ? Pain, redness, and swelling at the sting site. These can develop over 24???48 hours. ? Pain, redness, and swelling that may spread to a larger, connected area beyond the sting site. The spreading can continue over 24???48 hours. Allergic reaction An allergic reaction can vary in severity and includes symptoms in other areas of the body beyond the sting site. People who experience an allergic reaction have a higher risk of having similar or worse symptoms the next time they are stung. Symptoms may include: ? Hives, itching, and swelling. ? Abdominal symptoms including cramping, nausea, vomiting, and diarrhea. Severe symptoms that require immediate medical attention include: ? Chest pain or tightness. ? Wheezing or trouble breathing. ? Swelling of the tongue, throat, or lips. ? Trouble swallowing or hoarse voice. Anaphylactic reaction An anaphylactic reaction is a severe, life-threatening allergy and requires immediate medical attention. The symptoms often include severe allergic reaction symptoms that develop rapidly and lead to: ? A sudden and sharp drop in blood pressure. ? Dizziness. ? Loss of consciousness. How is this diagnosed? This condition is usually diagnosed based on your symptoms and medical history as well as a physical exam. You may have an allergy test to determine if you are allergic to the insect venom. How is this treated? If you were stung by a bee, the stinger and a small sac of venom may be in the wound. Remove the stinger as soon as possible. Do this by brushing across the wound with gauze, a clean fingernail, or aflat card such as a credit card. This can help reduce the severity of your body's reaction to the sting. Normal reactions can be treated with: ? Washing the area thoroughly with soap and water. ? Applying ice to the area to reduce swelling. ? Oral or topical medicines to help reduce pain and itching, if present. Pay close attention to your symptoms after you have been stung. If possible, have someone stay withyou to see if an allergic reaction develops. If allergic symptoms develop, oral antihistamines can be taken and you will need medical help right away. If you had an allergic reaction before, you may need to: ? Use an auto-injector pen(pre-filled automatic epinephrine injection device)at the first sign of an allergic reaction. ? Get medical help right away because the epinephrine is short-acting. It is intended to give you more time to get to an emergency room. Follow these instructions at home: ? Wash the sting site 2???3 times a day with soap and water as told by your health care provider. ? Apply or take ohlo-olh-rylpjvu and prescription medicines only as told by your health care provider. ? If directed, apply ice to the sting area. ? Put ice in a plastic bag. ? Place a towel between your skin and the bag. ? Leave the ice on for 20 minutes, 2???3 times a day. ? Do not scratch the sting area. ? If you had a severe allergic reaction to a sting, you may need to: ? Wear a medical bracelet or necklace that lists the allergy. ? Carry an anaphylaxis kit or an epinephrine auto-injector pen with you at all times. Tell your family members, friends, and coworkers when and how to use it. Use it at the first sign of an allergic reaction. How is this prevented? Avoid swatting at stinging insects and disturbing insect nests. ? Do not use fragrant soaps or lotions and avoid sitting near flowering plants, if possible. ? Wear shoes, pants, and long sleeves when spending time outdoors, especially in grassy areas where stinging insects are common. ? Keep outdoor areas free from nests or hives. ? Keep food and drink containers covered when eating outdoors. ? Wear gloves if you are gardening or working outdoors. ? Find a barrier between you and the insect(s), such as a door, if an attack by a stinging insect or a swarm seems likely. Contact a health care provider if: ? Your symptoms do not get better in 2???3 days. ? You have redness, swelling, or pain that spreads beyond the area of the sting. ? You have a fever. Get help right away if: You have symptoms of a severe allergic reaction. These include: ? Chest tightness or pain. ? Wheezing, or trouble swallowing or breathing. ? Light-headedness, dizziness, or fainting. ? Itchy, raised, red patches on the skin beyond the sting site. ? Abdominal cramping, nausea, vomiting, or diarrhea. ? Trouble swallowing or a swollen tongue, throat, or lips. These symptoms may be an emergency. Get help right away. Call 911. ? Do not wait to see if the symptoms will go away. ? Do not drive yourself to the hospital. Summary ? Stings from bees, wasps, and hornets can cause pain and swelling, but they are usually not serious.However, some people may have an allergic reaction to a sting. This can cause the symptoms to be more severe. ? Pay close attention to your symptoms after you have been stung. If possible, have someone stay withyou to look for signs of worsening symptoms. ? Call your health care provider if you have any signs of an allergic reaction. This information is not intended to replace advice given to you by your health care provider. Make sure you discuss any questions you have with your health care provider. Document Revised: 06/20/2022 Document Reviewed: 06/20/2022 [employer] Patient Education ?? 2022 [employer] Electronically Signed on: 12/16/2023 11:55 EDTSigned by:MELISSA Patient Care team information Care Team Related Persons Name: RICARDO HECK Address: Home [address], [place] [id number] [facility] Address: [address]ailing [address] [place] [phone] Name: YANELIS MENDOZA Address: Home [address], [place] [id number] [facility] Address: [address]ailing [address] [place] [phone]
--- OUTSIDE RECORDS SUMMARY | 2024-03-11 16:14 | XMS_ITS | Encounter Summary ---
Author Organization Count Includes [facility] Address [facility] [place] [address] Care Team Providers Care Television Audio Engineer Name Role Phone Pauline Gannon APRN Primary Care Provider [phone] Reason for Visit * Consultation (Routine) - Specialty Diagnoses / Procedures Referred By Indira whitfield Referred To Contact Vascular Surgery Diagnoses Peripheral vascular disease, unspecified Pauline Gannon APRN [address] [place] [address] [facility] Vascular Surg [address] [place] [address] Referral ID Status Reason Start Date Expiration Date V isits Requested Visits Authorized [id number] Consult, Test & Treat Connection [facility] PCP Updated and/or Approved 01/15/2020 07/14/2020 6 6 Encounter Details Date Type Department Care Team (Late st Contact Info) Description 02/27/2020 1:30 PM EDT Office Visit [place] [phone] Shiva Luis MD [facility] [place] [address] Bilateral carotid artery stenosis; PVD (peripheral vascular [...] Sign Reading Time Taken Comments Blood Pressure 136/64 02/27/2020 1:14 PM EDT Pulse 75 02/27/2020 1:14 PM EDT Temperature - - Respiratory Rate - - Oxygen Saturation - - Inhaled Oxygen Concentration - - Weight 70.3 kg (155 lb) 02/27/2020 1:14 PM EDT Height 157.5 cm (5' 2) 02/27/2020 1:14 PM EDT Body Mass Index 28.35 02/27/2020 1:14 PM EDT documented in this encounter Progress Notes * Shiva Luis MD - 02/27/2020 1:30 PM EDT Interval History: 74 yo woman returned for reevaluation of advanced LEFT lower extremity peripheralvascular disease . She reports no deterioration in left lower extremity pain with ambulation. Denies signficant numbness. Denies foot ulcers or gangrenous toes. Notes continued LLE swelling and very dry skin on the plantar surface of her feet. She denies stroke, TIA, amaurosis fugax. Vascular History: LEFT LOWER EXTREMITY PVD # Left fem-pop bypass graft with vein, OSH, September 2004 for ischemic rest pain. # BPG thrombosed on POD1, salvaged with thrombectomy and revision. Post-op thigh wound infection # BPG intimal hyperplasia, [place] [facility]. 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 # LLE ischemic rest pain did not recur following BPG thrombosis # RAO 0.38 in Jan 2005. # RAO 0.36 on 01/05/06. # RAO 0.29 on 02/25/07 # RAO 0.38 on 03/10/08 # RAO 0.47 with TBI 0.23 on 03/10/09 # RAO 0.50 on 07/30/12 # RAO 0.51 on 11/10/13 # RAO 0.44 on 03/15/15 RIGHT LOWER EXTREMITY PVD # RAO 0.34 in Apr 09 # RAO 0.56 in May 11 # RAO 0.71 in Jan 09 # ROA 0.73 on 01/05/06 # RAO 0.61 on 02/25/07 # RAO 0.74 on 03/10/08 # RAO 0.75 with TBI 0.53 on 03/10/09 # ARO 0.90 on 05/18/10 # RAO 0.88 on 07/30/12 with strongly palpable DP pulse # RAO 0.84 on 11/10/13 with strongly palpable DP pulse # RAO 0.76 on 03/15/15 with palpable DP pulse PMH: Polymyalgia rheumatica rxd Prednisone [id number] DJD hands and knees with no inflammatory [...] Text Report Department: Vascular Surgery Lab Patient: [id number] (JENN GARCIA) CPT: 04698 ICD10: I73.9;I70.213 Referring Physician: DILMA OLIVEIRA APRN Indications: Patient with claudication and known PVD, ? change in RAO Diabetes mellitus: No ICD10 Diagnosis Code: I70.213, I73.9 Findings: Right Pressure (mm Hg) RAO Waveform TBI Brachial Artery 138 Dorsalis Pedis (Ankle) Artery 107 0.75 Biphasic Posterior Tibial (Ankle) Artery 114 0.80 Biphasic Great Toe 74 0.52 Left Pressure (mm Hg) RAO Waveform TBI Brachial Artery 143 Dorsalis Pedis (Ankle) Artery 51 0.36 [place]-Biphasic Posterior Tibial (Ankle) Ar abraham 58 0.41 [place]-Biphasic Great Toe 28 0.20 Interpretation: RIGHT: Mild lower extremity arterial occlusive disease. No identifiable change when compared to the previous exam performed on 03/15/2015. LEFT: Moderately severe lower extremity arterial occlusive disease to the ankle. Toe-brachial index substantially lower than ankle-brachial index indicates presence of severe arterial occlusive disease in the foot. No identifiable change when compared to the previous exam performed on 03/15/2015. NOTE: Hypertension is present based on Doppler derived systolic brachial blood pressure. Previous ABIs with change from previous value: Date RIGHT DP RIGHT PT RT GR TOE RT Sec TOE 0.74 0.71 0.47 ---- 0.73(-.01) 0.75(+.04) 0.53(+.06) ---- 0.90(+.17) 0.87(+.12) ---- ---- 0.69(-.21) 0.75(-.12) 0. 49 ---- 0.80(+.11) 0.88(+.13) ---- ---- 0.82(+.02) 0.84(-.04) ---- ---- 0.63(-.19) 0.76(-.08) ---- ---- Current 0.75(+.12) 0.80(+.04) 0.52 ---- Date LEFT DP LEFT PT LT GR TOE LT Sec TOE 0.25 0.38 0.25 ---- 0.35(+.10) 0.47(+.09) 0.23(-.02) ---- 0.46(+.11) 0.48(+.01) 0.22(-.01) ---- 0.34(-.12) 0.38(-.10) 0.20(-.02) ---- 0.41(+.07) 0.50(+.12) ---- ---- 0.41( .00) 0.51(+.01) ---- ---- 0.32(-.09) 0.44(-.07) ---- ---- Current 0.36(+.04) 0.41(-.03) 0.20 ---- VB Text Report End of Report Impression & Plan: ??? Stable bilateral PAD, no critical limb ischemia. ABIs on both sides have been relatively stableover the past few years. Excellent atherosclerotic medical regimen including statin. ??? No carotid symptoms. Carotid duplex today demonstrates minimal progression of stenosis. Surgery/stenting not indicated. We should check her carotids in 2 years. ??? Routine recommendations for continued ambulatory exercise [...] as of this encounter Visit Diagnoses Diagnosis Bilateral carotid artery stenosis Occlusion and stenosis of multiple and bilateral precerebral arteries without mention of cerebral infarction PVD (peripheral vascular disease) Peripheral vascular disease, unspecified documented in this encounter Care Teams Television Audio Engineer Relationship Specialty Start Date End Date Pauline Gannon, SURVEY PROJECT MANAGER [address] [place] [address] PCP - General Family Medicine 09/03/17 08/02/21 documented as of this encounter
--- OUTSIDE RECORDS SUMMARY | 2024-03-11 16:14 | XMS_ITS | Encounter Summary ---
Author Organization [facility] Address [address] [place] [address] Care Team Providers Care Computer Systems Designer Name Role Phone Unavailable Primary Care Provider Unavailabl e Encounter Details Date Type Department Care Team (Late st Contact Info) Description 12/21/2005 Results Only [facility] - [facility] conversion [address] [place] [address] Jose Gunderson MD [address] [place] [address] Social History Tobacco Use Types [...] Priority Date/Time Associated Diagnosis Comments CYTOPATHOLOGY Routine 12/21/2005 0:00 EDT documented in this encounter Results * CYTOPATHOLOGY (12/21/2005 0:00 EDT) Pathology Report: CYTOPATHOLOGY REPORT Reports generated via electronic interface contain original data; however they are lacking the format of the original report. Caution should be taken when reading/interpreti ng unformatted reports. Name: ? JENN GARCIA ? Accession #: ? [id number] : ? 1945 (Age: 60) ??F ?Collect Date: ? 12/21/2005 Location: ? [facility] ? Receive Date: ? 12/25/2005 Provider: ?JOSE GUNDERSON MD Copy to: ? Specimen/Source: ?ThinPrep Pap Test, Cervix/Endocervix, processed on ROBLOX ThinPrep Imaging System, with manual evaluation Last Menstrual Period: ? 1993 Other: ? HPVA - HPV testing requested if ASC-US on the current ThinPrep Pap test. ? SPECIMEN ADEQUACY ? Satisfactory for Evaluation - transformation zone component present GENERAL CATEGORIZATION ? Negative for Intraepithelial Lesion or Malignancy ? Document reviewed and electronically signed by: ? Kerrie Glez, SCT(ASCP) ? Report Date: ??12/28/2005 09:13 End of Report [facility] 12/21/2005 12/25/2005 Jose Gunderson MD PATHOLOGY ORDERABLES [facility] [address] [place] [address] documented in this encounter Visit Diagnoses Not on filedocumented in this encounter
--- OUTSIDE RECORDS SUMMARY | 2024-03-11 16:14 | XMS_ITS | Clinical Summary ---
Author Organization [facility] Address [facility] [place] [address] Care Team Providers Care Special Population Paraprofessional Name Role Phone Sylvia Torrez APRN Primary Care Provider [phone] Allergies No known active allergies Medications Medication Sig Dispensed Refills Start Date End Date Status atorvastatin (LIPITOR) 40 mg tablet 03/10/2009 Active aspirin (ECOTRIN LOW STRENGTH) 81 mg EC tablet 03/10/2009 Active multivitamin (THERAGRAN) tablet Take 1 tablet by mouth daily. VITAMIN FOR WOMEN OVER 50 Active lisinopril (PRINIVIL;ZESTRIL) 20 mg Tablet Take 20 mg by mouth daily. Active amitriptyline (ELAVIL) 50 mg Tablet TK 1 T PO QHS 4 07/13/2015 Active triamcinolone (Kenalog) 0.1 % Cream APPLY A SMALL AMOUNT TO SKIN TWICE DAILY NEEDED PSORIASIS. LIMIT USE TO 2 WEEKS PER TREATMENT 09/04/2022 Active celecoxib (CeleBREX) 200 mg capsule Take 200 mg by mouth. 12/16/2023 Active Active Problems Problem Noted Date Diagnosed Date Left knee pain 09/07/2020 History of bilateral knee replacement DOS: 200509/30/2015 Polymyalgia rheumatica 07/17/2011 Overview (07/17/2011): Hx steroid use. PVD (peripheral vascular disease) 05/03/2011 Overview (02/04/2012): 1. Left fem-pop bypass graft with vein, OSH, September 2004 for ischemic rest pain. BPG thrombosed on POD1, salvaged with thrombectomy and revision. Post-op thigh wound infection, eventually resolved. Late post-op intimal hyperplasia, [place] [facility] [place]. Progressive diffuse intimal hyperplasia and bypass graft thrombosis early in 2004. [...] 0.53 on 03/10/09. RAO 0.90 on 05/18/10. Carotid stenosis 05/03/2011 Resolved Problems Problem Noted Date Diagnosed Date Resolved Date DJD (degenerative joint disease) 07/17/2011 09/30/2015 Overview (07/17/2011): S/p bilateral TKA Encounters Date Type Department Care Team Description 02/08/2024 1:30 PM EDT Office Visit [place] [address] Ann-Marie Lay APRN History of revascularization procedure of lower extremity; PAD (peripheral artery disease) 02/08/2024 1:00 PM EDT [place] [address] Richard [place] History of revascularization procedure of lower extremity 02/08/2024 Travel from Last 3 Months Family History Medical History Relation Comments Diabetes Neg Hx Social History Tobacco Use Types Packs/Day Years Used Date Smoking Tobacco: Former Cigarettes Q uit: 1963 Smokeless Tobacco: Never Alcohol Use Standard Drinks/Week Comments No 0 (1 standard drink = 0.6 oz pur e alcohol) Sex and Gender Information Value Date Recorded Sex Assigned at Not on file Gender Identity Not on file Sexual Orientation Not on file Last Filed Vital Signs Vital Sign Reading Time Taken Comments Blood Pressure 121/89 02/08/2024 1:13 PM EDT Pulse 110 02/08/2024 1:13 PM EDT Temperature - - Respiratory Rate 20 03/15/2015 3:35 PM EST Oxygen Saturation 100% 02/08/2024 1:13 PM EDT Inhaled Oxygen Concentration - - Weight 65.3 kg (144 lb) 02/08/2024 1:13 PM EDT Height 157.5 cm (5' 2) 12/29/2022 11:16 AM EDT reported Body Mass Index 26.34 12/29/2022 11:16 AM EDT Plan of Treatment Health Maintenance Due Date Last Done Comments Hepatitis C Screening 1962 Tetanus/Diphtheria/Pertussis Vaccines (1 - Tdap) 11/28 Zoster vaccine (1 of 2) 1994 Advance Directive 11/29/1999 Bone Density Scan 2009 Pneumoccocal Vaccine: 65+ (1 of 1 - PCV) 2009 Covid-19 Vaccine (1 - season) 2024 Influenza (Flu) vaccine (1 o f 1 - Influenza standard series) 01/06/2024 Procedures Procedure Name Priority Date/Time Associated Diagnosis Comments RAO, LEGS, MULTIPLE LEVELS Routine 02/08/2024 12:34 PM EDT History of revascularization procedure of lower extremity from Last 3 Months Results * RAO, legs, multiple levels (02/08/2024 12:34 PM EDT) VB Text Report Department: Vascular Surgery Lab Patient: [id number] (JENN GARCIA) CPT: 49600 Referring Physician: NORMAN LUIS ?? Indications: f/u PAD Diabetes mellitus: no Findings: Right ?Pressure (mm Hg) ?? RAO ??Waveform ?TBI ?? Brachial Artery ?121 ? Dorsalis Pedis (Ankle) Artery ?91 ?0.75 ??[place]-Biphasic ? Posterior Tibial (Ankle) Artery ??110 ? 0.90 ??[place]-Biphasic ? Great Toe ?69 ? 0.57 ?? Left ? Pressure (mm Hg) ?? RAO ??Waveform ? TBI ?? Brachial Artery ?122 ? Dorsalis Pedis (Ankle) Artery ?51 ?0.42 ??Monophasic ? Posterior Tibial (Ankle) Artery ??48 ?0.39 ??Monophasic ? Great Toe ?33 ?0.27 ?? Interpretation: RIGHT: Mild lower extremity arterial occlusive disease. Significant improvement in PALLET STONE POSITIONER compared to previous exam. No significant change in TBI compared. LEFT: Moderately severe lower extremity arterial occlusive disease. No significant change compared to previous exam. Previous ABIs with change from previous value: Date ?RIGHT DP ?? RIGHT PT ?? RT GR TOE ??RT Sec TOE ??0.73 ? 0.75 ? 0.53 ? ---- ??0.90(+.17) 0.87(+.12) ---- ? ---- ??0.69(-.21) 0.75(-.12) 0.49 ? ---- ??0.80(+.11) 0.88(+.13) ---- ? ---- ??0.82(+.02) 0.84(-.04) ---- ? ---- ??0.63(-.19) 0.76(-.08) ---- ? ---- ??0.75(+.12) 0.80(+.04) 0.52 ? ---- ??0.88(+.13) 0.85(+.05) 0.49(-.03) ---- ??0.71(-.17) 0.73(-.12) 0.53(+.04) ---- Current ? 0.75(+.04) 0.90(+.17) 0.57(+.04) ---- Date ?LEFT DP ?LEFT PT ?LT GR TOE LT Sec TOE ??0.35 ? 0.47 ? 0.23 ? ---- ??0.46(+.11) 0.48(+.01) 0.22(-.01) ---- ??0.34(-.12) 0.38(-.10) 0.20(-.02) ---- ??0.41(+.07) 0.50(+.12) ---- ? ---- ??0.41( .00) 0.51(+.01) ---- ? ---- ??0.32(-.09) 0.44(-.07) ---- ? ---- ??0.36(+.04) 0.41(-.03) 0.20 ? ---- ??0.36( .00) 0.53(+.12) 0.27(+.07) ---- ??0.41(+.05) 0.51(-.02) 0.27( .00) ---- Current ? 0.42(+.01) 0.39(-.12) 0.27( .00) ---- More studies have been completed than are shown. Electronically Signed by: SANJIV DRAPER on 2024-02-14 08:41:17 AM [facility] VB Text Report End of Report [facility] 02/08/2024 12:3 4 PM EDT Norman Luis MD VASCULAR ORDERABLES [facility] from Last 3 Months Care Teams Special Population Paraprofessional Relationship Specialty Start Date End Date Sylvia Torrez, HEAD FIELD HOCKEY [place] [address] PCP - General Family Medicine 08/03/21
--- OUTSIDE RECORDS SUMMARY | 2024-03-11 16:14 | XMS_ITS | Encounter Summary ---
Author Organization [facility] Address [facility] [place] [address] Care Team Providers Care Nuclear Chemistry Technician Name Role Phone Grayson Mcduffie MD Primary Care Provider [phone] Encounter Details Date Type Department Care Team (Late st Contact Info) Description 07/30/2012 2:30 PM EDT Office Visit [place] [phone] Ting Colvin [place] Carotid disease, bilateral; PAD (peripheral artery disease) Social History Tobacco [...] Diagnosis Comments RAO, LEGS, MULTIPLE LEVELS Routine 07/30/2012 2:29 PM EDT PAD (peripheral artery disease) CAROTID DUPLEX, BILATERAL Routine 07/30/2012 2:29 PM EDT Carotid disease, bilateral documented in this encounter Results * RAO, legs, multiple levels (07/30/2012 2:29 PM EDT) VB Text Report Department: Vascular Surgery Lab Patient: [id number] (REJI JENN) CPT Code: 81875 ICD-9: 440.20 Referring Physician: MARIA CAMERON Indication: [...] Dorsalis Pedis (Ankle) Artery ?66 ? 0.41 ??[place]-Biphasic ?? Posterior Tibial (Ankle) Artery ??81 ? 0.50 ??[place]-Biphasic ?? Interpretation: RIGHT: Mild lower extremity arterial [...] Text Report Department: Vascular Surgery Lab Patient: [id number] (JENN GARCIA) CPT Code: 35170 ICD-9: 433.10 Referring Physician: MARIA CAMERON Indication: [...] statistics are based on comparisons performed at [facility] between noninvasive carotid artery duplex data and arteriographic evaluation of the same patients from 4844-1695. Q / A Sens. Spec. PPV NPV Accuracy Carotid 93% 98% 97% 95% 96% Signed by MARIA CAMERON on 2012-08-05 12:38:25 PM [facility] 07/30/2012 2:29 PM EDT Maria Cameron MD VASCULAR ORDERABLES [facility] documented in this encounter Visit Diagnoses Diagnosis Carotid disease, bilateral Unspecified disorders of arteries and arterioles PAD (peripheral artery disease) Peripheral vascular disease, unspecified documented in this encounter Care Teams Nuclear Chemistry Technician Relationship Specialty Start Date End Date Grayson Mcduffie MD PCP - General 03/29/10 03/14/15 documented as of this encounter
--- OUTSIDE RECORDS SUMMARY | 2024-03-11 16:14 | XMS_ITS | Encounter Summary ---
[place] [address] Care Team Providers Care Final Assembly Inspector Name Role Phone Sylvia Torrez MAIL EXAMINER Primary Care Provider [phone] Encounter Details Date Type Department Care Team (Latest Contact Info) Description 12/29/2022 Travel Social History Tobacco Use Types Packs/Day [...] on filedocumented in this encounter Care Teams Final Assembly Inspector Relationship Specialty Start Date End Date Sylvia Torrez, [place] [address] PCP - General Family Medicine 08/03/21 documented as of this encounter
--- OUTSIDE RECORDS SUMMARY | 2024-03-11 16:14 | XMS_ITS | Encounter Summary ---
Author Organization [facility] Address [address] [place] [address] Care Team Providers Care Health And Safety Specialist Name Role Phone Unavailable Primary Care Provider Unavailabl e Encounter Details Date Type Department Care Team (Late st Contact Info) Description 11/15/2004 Results Only [facility] - [facility] conversion [address] [place] [address] Jose Gunderson MD [address] [place] [address] Social History Tobacco Use Types [...] Priority Date/Time Associated Diagnosis Comments CYTOPATHOLOGY Routine 11/15/2004 0:00 EDT documented in this encounter Results * CYTOPATHOLOGY (11/15/2004 0:00 EDT) Pathology Report: CYTOPATHOLOGY REPORT Reports generated via electronic interface contain original data; however they are lacking the format of the original report. Caution should be taken when reading/interpreti ng unformatted reports. Name: ? JENN GARCIA ? Accession #: ? [id number] : ? 1945 (Age: 58) ??F ?Collect Date: ? 11/15/2004 Location: ? [facility] ? Receive Date: ? 11/17/2004 Provider: ?JOSE GUNDERSON MD Copy to: ? Specimen/Source: ?ThinPrep Pap Test, Cervix/Endocervix, processed on AntriaPrep Imaging System, with manual evaluation Last Menstrual Period: ? Menstrual/Pregnanc y Status: ? Menopausal ? SPECIMEN ADEQUACY ? Satisfactory for Evaluation - transformation zone component present GENERAL CATEGORIZATION ? Negative for Intraepithelial Lesion or Malignancy INTERPRETATION ? Reactive cellular changes associated with inflammation present (includes repair). ? Document reviewed and electronically signed by: ? SARAH GUILLEN MD ? Report Date: ??11/30/2004 10:42 End of Report [facility] 11/15/2004 11/17/2004 Jose Gunderson MD PATHOLOGY ORDERABLES [facility] [address] [place] [address] documented in this encounter Visit Diagnoses Not on filedocumented in this encounter
--- OUTSIDE RECORDS SUMMARY | 2024-03-11 16:14 | XMS_ITS | Encounter Summary ---
Author Organization [facility] [place] [address] Care Team Providers Care Call Center Recruiter Name Role Phone Deloris Bello APRN Primary Care Provider [phone]- [phone] Encounter Details Date Type Department Care Team (Latest Contact Info) Description 03/15/2015 2:30 PM EST - 03/15/2015 11:59 PM EST Hospital Encounter [place] [id number] Maria Britton, [place] PVD (peripheral vascular disease); Carotid stenosis, bilateral Discharge Disposition: Home Social History Tobacco Use Types Packs/Day Years Used Date Smoking Tobacco: Former Smokeless Tobacco: Never Alcohol Use Standard Drinks/Week Comments No 0 (1 standard drink = 0.6 oz pur e alcohol) Sex and Gender Information Value Date Recorded Sex Assigned at Not on file Gender Identity Not on file Sexual Orientation Not on file documented as of this encounter Medications at Time of Discharge Medication Sig Dispensed Refills Start Date End Date lisinopril (PRINIVIL;ZESTRIL) 20 mg Tablet Take 20 mg by mouth daily. multivitamin (THERAGRAN) tablet Take 1 tablet by mouth daily. VITAMIN FOR WOMEN OVER 50 atorvastatin (LIPITOR) 40 mg tablet 03/10/2009 aspirin (ECOTRIN LOW STRENGTH) 81 mg EC tablet 03/10/2009 iron-vitamin C 65 mg iron- 125 mg Tablet, Delayed Release (E.C.) Take 65 mg by mouth. 02/27/2020 amitriptyline (ELAVIL) 25 mg tablet 03/10/2009 09/30/2015 documented as of this encounter Plan of Treatment Not on file documented as of this encounter Procedures Procedure Name Priority Date/Time Associated Diagnosis Comments RAO, LEGS, MULTIPLE LEVELS Routine 03/15/2015 2:37 PM EST PVD (peripheral vascular disease) CAROTID DUPLEX, BILATERAL Routine 03/15/2015 2:37 PM EST Carotid stenosis, bilateral documented in this encounter Results * RAO, legs, multiple levels (03/15/2015 2:37 PM EST) VB Text Report Department: Vascular Surgery Lab Patient: [id number] (JENN GARCIA) CPT: 03302 ICD10: I73.9 Referring Physician: MARIA CAMERON ?? Indications: Claudication Diabetes mellitus: No ICD10 Diagnosis Code: I73.9 Definitions: RAO = Ankle / Brachial Systolic Pressure Index, TBI = Toe / Brachial Systolic Pressure Index. All systolic pressures in this study are derived based on Doppler assessment of blood flow. Findings: Right ?Pressure (mm Hg) ?? RAO ??Waveform ? Brachial Artery ?128 ? Dorsalis Pedis (Ankle) Artery ?83 ?0.63 ??Monophasic ?? Posterior Tibial (Ankle) Artery ??100 ? 0.76 ??Biphasic ? Left ? Pressure (mm Hg) ?? RAO ??Waveform ? Brachial Artery ?131 ? Dorsalis Pedis (Ankle) Artery ?42 ?0.32 ??Monophasic ?? Posterior Tibial (Ankle) Artery ??57 ?0.44 ??Monophasic ?? Interpretation: RIGHT: Mild lower extremity arterial occlusive disease. No significant change compared to previous exam. LEFT: Moderately severe lower extremity arterial occlusive disease. No significant change compared to previous exam. Previous ABIs with change from previous value: Date ?RIGHT DP ?? RIGHT PT ?? RT GR TOE ??LEFT DP ?LEFT PT ?LT GR TOE ??0.74 ? 0.71 ? 0.47 ? 0.25 ? 0.38 ? 0.25 ??0.73(-.01) 0.75(+.04) 0.53(+.06) 0.35(+.10) 0.47(+.09) 0.23(-.02) ??0.90(+.17) 0.87(+.12) ---- ? 0.46(+.11) 0.48(+.01) 0.22(-.01) ??0.69(-.21) 0.75(-.12) 0.49 ? 0.34(-.12) 0.38(-.10) 0.20(-.02) ??0.80(+.11) 0.88(+.13) ---- ? 0.41(+.07) 0.50(+.12) ---- ??0.82(+.02) 0.84(-.04) ---- ? 0.41( .00) 0.51(+.01) ---- Current ? 0.63(-.19) 0.76(-.08) ---- ? 0.32(-.09) 0.44(-.07) ---- Electronically Signed by: MARIA CAMERON on 2015-03-15 04:05:21 PM VASCUBASE VB Text Report End of Report VASCUBASE 03/15/2015 2:37 PM EST Maria Cameron MD VASCULAR ORDERABLES VASCUBASE * Cerebrovascular Duplex, Bilateral (03/15/2015 2:37 PM EST) VB Text Report Department: Vascular Surgery Lab Patient: [id number] (JENN GARCIA) CPT: 45398 ICD10: I65.23 Referring Physician: MARIA CAMERON ?? Indications: Bilateral carotid stenoses. ICD10 Diagnosis Code: I65.23 Findings: ICA Proximal, Right ? PSV (cm/s): 68 ? EDV (cm/s): 21 ? ICA/CCA: 0.9 ? Plaque Structure: Echogenic ? Plaque Surface: Irregular ? %Stenosis: 16-49% ICA Distal, Right ? PSV (cm/s): 85 ? EDV (cm/s): 28 ? ICA/CCA: 1.1 CCA Distal, Right ? PSV (cm/s): 78 ? EDV (cm/s): 16 ? %Stenosis: Minimal CCA Proximal, Right ? PSV (cm/s): 90 ? EDV (cm/s): 11 External Carotid Artery, Right ? PSV (cm/s): 69 ? EDV (cm/s): 0 ? %Stenosis: <50% Vertebral, Right ? PSV (cm/s): 72 ? EDV (cm/s): 22 ? Direction of Flow: Antegrade ICA Proximal, Left ? PSV (cm/s): 90 ? EDV (cm/s): 23 ? ICA/CCA: 1.0 ? Plaque Structure: Echogenic ? Plaque Surface: Irregular ? %Stenosis: 16-49% ICA Distal, Left ? PSV (cm/s): 86 ? EDV (cm/s): 26 ? ICA/CCA: 1.0 CCA Distal, Left ? PSV (cm/s): 88 ? EDV (cm/s): 23 ? %Stenosis: Minimal CCA Proximal, Left ? PSV (cm/s): 109 ? EDV (cm/s): 20 External Carotid Artery, Left ? PSV (cm/s): 98 ? EDV (cm/s): 8 ? %Stenosis: <50% Vertebral, Left ? PSV (cm/s): 51 ? EDV (cm/s): 17 ? Direction of Flow: Antegrade Interpretation: RIGHT: There is bulky irregular plaque in the proximal internal carotid artery causing 16-49% (low end of range) stenosis when compared to the more distal internal carotid artery. The bifurcation level is in the mid neck. No significant change compared to previous exam. LEFT: There is bulky irregular plaque in the proximal internal carotid artery causing 16-49% (low end of range) stenosis when compared to the more distal [...] ? 72 ?n/a ? <15% ? 70 ?1.89 ? <15% ? 127 ?? 1.53 ? <15% ? 52 ?1.44 ? <15% ? 64 ?1.73 Current Exam ? 16-49% ? 68 ?1.09 ? 16-49% ? 90 ?1.02 Electronically Signed by: MARIA CAMERON on 2015-03-15 04:04:44 PM VASCUBASE VB Text Report End of Report VASCUBASE 03/15/2015 2:37 PM EST Maria Cameron MD VASCULAR ORDERABLES VASCUBASE documented in this encounter Visit Diagnoses Diagnosis PVD (peripheral vascular disease) Peripheral vascular disease, unspecified Carotid stenosis, bilateral Occlusion and stenosis of multiple and bilateral precerebral arteries without mention of cerebral infarction documented in this encounter Care Teams Call Center Recruiter Relationship Specialty Start Date End Date Deloris Bello APRN PCP - General Family Medicine 03/15/15 07/02/16 documented as of this encounter
--- OUTSIDE RECORDS SUMMARY | 2024-03-11 16:14 | XMS_ITS | Encounter Summary ---
Author Organization [facility] Address [address] [place] [address] Care Team Providers Care Bobcat Operator Name Role Phone Unavailable Primary Care Provider Unavailabl e Encounter Details Date Type Department Care Team (Late st Contact Info) Description 03/12/2007 Results Only [facility] - [facility] [address] [place] [address] Jose Gunderson MD [address] [place] [address] Social History Tobacco Use Types [...] Priority Date/Time Associated Diagnosis Comments CYTOPATHOLOGY Routine 03/12/2007 0:00 EST documented in this encounter Results * CYTOPATHOLOGY (03/12/2007 0:00 EST) Pathology Report: CYTOPATHOLOGY REPORT Reports generated via electronic interface contain original data; however they are lacking the format of the original report. Caution should be taken when reading/interpreti ng unformatted reports. Name: ? JENN GARCIA ? Accession #: ? [id number] : ? 1945 (Age: 61) ??F ?Collect Date: ? 03/12/2007 Location: ? [facility] ? Receive Date: ? 03/14/2007 Provider: ?JOSE GUNDERSON MD Copy to: ? Specimen/Source: ?ThinPrep Pap Test, Cervix/Endocervix, processed on [facility] ThinPrep Imaging System, with manual evaluation Last Menstrual Period: ? 1993 Other: ? HPVA - HPV testing requested if ASC-US on the current ThinPrep Pap test. ? SPECIMEN ADEQUACY ? Satisfactory for Evaluation - transformation zone component present - scant squamous epithelial component secondary to excessive inflammation GENERAL CATEGORIZATION ? Negative for Intraepithelial Lesion or Malignancy ? Document reviewed and electronically signed by: ? ÁLVARO Baird(ASCP) ? Report Date: ??03/18/2007 08:22 End of Report KIERRA SCRUGGS 03/12/2007 03/14/2007 Jose Gunderson MD PATHOLOGY ORDERABLES Performing Organization Address City/State/[facility] Co de Phone Number KIERRA SCRUGGS [address] [place] [address] documented in this encounter Visit Diagnoses Not on filedocumented in this encounter
--- OUTSIDE RECORDS SUMMARY | 2024-03-11 16:14 | XMS_ITS | Encounter Summary ---
Author Organization [facility] Address [facility] [place] [address] Care Team Providers Care Hedis Analyst Name Role Phone Pauline Gannon KAVON Primary Care Provider [phone] Encounter Details Date Type Department Care Team (Late st Contact Info) Description 01/22/2020 Orders [place] [address] Rita Peralta APRN [facility] [place] [address] PVD (peripheral vascular disease) with claudication Social History Tobacco Use Types Packs/Day Years [...] encounter Results * RAO, legs, multiple levels (02/27/2020 12:42 PM EDT) VB Text Report Department: Vascular Surgery Lab Patient: [id number] (JENN GARCIA) CPT: 31781 ICD10: I73.9;I70.213 Referring Physician: RITA PERALTA APRN ?? Indications: Patient with claudication and known PVD, ? change in RAO Diabetes mellitus: No ICD10 Diagnosis Code: I70.213, I73.9 Findings: Right ?Pressure (mm Hg) ?? RAO ??Waveform ?? TBI ?? Brachial Artery ?138 ? Dorsalis Pedis (Ankle) Artery ?107 ? 0.75 ??Biphasic ? Posterior Tibial (Ankle) Artery ??114 ? 0.80 ??Biphasic ? Great Toe ?74 ?0.52 ?? Left ? Pressure (mm Hg) ?? RAO ??Waveform ?TBI ?? Brachial Artery ?143 ? Dorsalis Pedis (Ankle) Artery ?51 ?0.36 ??[place]-Biphasic ? Posterior Tibial (Ankle) Artery ??58 ?0.41 ??[place]-Biphasic ? Great Toe ?28 ? 0.20 ?? Interpretation: RIGHT: Mild lower extremity arterial [...] ? ---- ??0.63(-.19) 0.76(-.08) ---- ? ---- Current ? 0.75(+.12) 0.80(+.04) 0.52 ? ---- Date ?LEFT DP ?LEFT PT ?LT GR TOE LT Sec TOE ??0.25 ? 0.38 ? 0.25 ? ---- ??0.35(+.10) 0.47(+.09) 0.23(-.02) ---- ??0.46(+.11) 0.48(+.01) 0.22(-.01) ---- ??0.34(-.12) 0.38(-.10) 0.20(-.02) ---- ??0.41(+.07) 0.50(+.12) ---- ? ---- ??0.41( .00) 0.51(+.01) ---- ? ---- ??0.32(-.09) 0.44(-.07) ---- ? ---- Current ? 0.36(+.04) 0.41(-.03) 0.20 ? ---- Electronically Signed by: NORMAN HER on 2020-02-27 03:37:17 PM VASCUBASE VB Text Report End of Report VASCUBASE 02/27/2020 12:4 2 PM EDT Rita Peralta APRN VASCULAR ORDERABLE S VASCUBASE documented in this encounter Visit Diagnoses Diagnosis PVD (peripheral vascular disease) with claudication Peripheral vascular disease, unspecified documented in this encounter Care Teams Hedis Analyst Relationship Specialty Start Date End Date Pauline Gannon, KAVON [address] [place] [address] PCP - General Family Medicine 09/03/17 08/02/21 documented as of this encounter
--- OUTSIDE RECORDS SUMMARY | 2024-03-11 16:14 | XMS_ITS | Encounter Summary ---
Author Organization [facility] Address [facility] [place] [address] Care Team Providers Care Air Bag Builder Name Role Phone Bello, Deloris Hillman APRN Primary Care Provider [phone] Encounter Details Date Type Department Care Team (Late st Contact Info) Description 06/06/2016 Notes Only Vascular [place] [address] Felipe Tse MD [facility] [place] [address] Social History Tobacco Use Types Packs/Day Years Used Date Smoking Tobacco: Former Smokeless Tobacco: Never Alcohol Use Standard Drinks/Week Comments No 0 (1 standard drink = 0.6 oz pur e alcohol) Sex and Gender Information Value Date Recorded Sex Assigned at Not on file Gender Identity Not on file Sexual Orientation Not on file documented as of this encounter Progress Notes * Felipe Tse MD - 06/06/2016 4:40 PM EST Vascular Attending Note Our crane manager Jeanna Marsh called Mrs. Garcia to schedule the patient's annual vascular evaluation. Jeanna could not find a day when Mrs. Garcia has transportation and I have open clinic slots. Thus, I phoned the patient at home to assess her status. Mrs. Garcia explained that she???s doing well from a peripheral vascular perspective. She has dry skin & fissure on her heels, but no overt ulcers, no rest pain. Her walking ability is not perfect, but it is stable. She plans to retire soon, and when that happens she will be able to travel here on any day of the week. She???ll give us a call when that happens. She will also call us at any timeif her lower extremity vascular symptoms worsen. Unless we hear from her, we won't put any return visit reminders in our system. Felipe Tse M.D. Section of Vascular Surgery documented in this encounter Plan of Treatment Not on file documented as of this encounter Visit Diagnoses Not on filedocumented in this encounter Care Teams Air Bag Builder Relationship Specialty Start Date End Date Deloris Bello APRN PCP - General Family Medicine 03/15/15 07/02/16 documented as of this encounter
--- OUTSIDE RECORDS SUMMARY | 2024-03-11 16:14 | XMS_ITS | Encounter Summary ---
Author Organization [facility] [place] [address] Care Team Providers Care Instructor Decorating Name Role Phone Grayson Mcduffie MD Primary Care Provider Encounter Details Date Type Department Care Team (Late st Contact Info) Description 05/18/2010 10:00 AM EST Office Visit [place] [phone] Stephani Ibanez, RVT Social History Tobacco Use Types Packs/Day Years Used Date Smoking Tobacco: Never Assessed Sex and Gender Information Value Date Recorded Sex Assigned at Not on file Gender Identity Not on file Sexual Orientation Not on file documented as of this encounter Plan of Treatment Not on file documented as of this encounter Visit Diagnoses Not on filedocumented in this encounter Care Teams Instructor Decorating Relationship Specialty Start Date End Date Grayson Mcduffie MD PCP - General 03/29/10 03/14/15 documented as of this encounter
--- OUTSIDE RECORDS SUMMARY | 2024-03-11 16:14 | XMS_ITS | Encounter Summary ---
Author Organization [facility] [place] [address] Care Team Providers Care Hospitality Ambassador Name Role Phone Pauline Gannon APRN Primary Care Provider [phone] Encounter Details Date Type Department Care Team (Late st Contact Info) Description 09/13/2020 Orders Only Orthopaedics at [facility] [address] [place] [address] Mundo Ridley MD [address] [place] [address] History of bilateral knee replacement DOS: 06/27/2005; [...] as of this encounter Results * XR Knee 3 [...] who have questions please contact the health hospice home care coordinator that requested your imaging first. ? Narrative [...] patients who have questions please contactthe health hospice home care coordinator that requested your imaging first. Mundo Ridley MD IMG DX ORDERABLES documented in this encounter Visit Diagnoses Diagnosis History of bilateral knee replacement DOS: 06/27/2005 Pain in both knees, unspecified chronicity History of bilateral knee replacement DOS: 06/27/2005 Pain in both knees, unspecified chronicity documented in this encounter Care Teams Hospitality Ambassador Relationship Specialty Start Date End Date Pauline Gannon, KAVON [address] [place] [address] PCP - General Family Medicine 09/03/17 3 documented as of this encounter
--- OUTSIDE RECORDS SUMMARY | 2024-03-11 16:14 | XMS_ITS | Encounter Summary ---
Author Organization [facility] Address [facility] [place] [address] Care Team Providers Care Freight Inspector Name Role Phone Deloris Bello KAVON Primary Care Provider [phone]- [phone] Reason for Visit * Reason Comments Carotid Stenosis Circulatory Problem pad Encounter Details Date Type Department Care Team (Late st Contact Info) Description 03/15/2015 4:00 PM EST Office Visit [place] [address] Felipe Tse MD [facility] [place] [address] PVD (peripheral vascular disease); Carotid stenosis, asymptomatic, bilateral Social History Tobacco Use Types Packs/Day Years [...] Sign Reading Time Taken Comments Blood Pressure 117/66 03/15/2015 3:35 PM EST r s emanuel Pulse 68 03/15/2015 3:35 PM EST Temperature - - Respiratory Rate 20 03/15/2015 3:35 PM EST Oxygen Saturation - - Inhaled Oxygen Concentration - - Weight 68 kg (150 lb) 03/15/2015 3:35 PM EST Height 157.5 cm (5' 2) 03/15/2015 3:35 PM EST Body Mass Index 27.44 03/15/2015 3:35 PM EST documented in this encounter Patient Instructions * Patient Instructions* Felipe Tse MD - 03/15/2015 10:22 PM EST Continue aspirin and statin medications. Meticulous skin care of both feet through the winter including skin lotion applied daily. Consider obtaining a small humidifier for her bedroom during the very dry winter months. Call any time for onset of new foot ulcers. We will call you for a return visit in 1 year. I appreciate your visit. documented in this encounter Progress Notes * Felipe Tse MD - 03/15/2015 10:14 PM EST Interval History: 69 yo woman returned for reevaluation of advanced LEFT lower extremity peripheralvascular disease and mild cerebrovascular disease. 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 # Progressive diffuse [...] # RAO 0.71 in Jan 09 # RAO 0.73 on 01/05/06 # RAO 0.61 on 02/25/07 # RAO 0.74 on 03/10/08 # RAO 0.75 with TBI 0.53 on 03/10/09 # RAO 0.90 on 05/18/10 # RAO 0.88 on 07/30/12 with strongly palpable DP pulse # RAO 0.84 on 11/10/13 with strongly palpable DP pulse # RAO 0.76 on 03/15/15 with palpable DP pulse CAROTID OCCLUSIVE DISEASE # Carotid duplex from [facility] on 02/06/05 revealed minimal stenosis on right, and 40-59% LEFT ICA stenosis. # Carotid duplex [facility] on 04/01/07 revealed no hemodynamically significant carotid artery stenoses. 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 [...] very dry calloused skin. Noninvasive vascular studies: Results are recorded above. No major changes. Impression & Plan: ??? Stable bilateral PAD, [...] advanced vascular ischemic symptoms or cerebrovascular symptoms. Felipe Tse M.D., Ph.D. Section of Vascular Surgery [facility] CC: MARIA Marrufo documented in this encounter Miscellaneous Notes * Addendum Note - Rosa Jaime RN - 03/16/2015 12:17 PM ESTAddended by: ROSA JAIME on: 03/16/2015 12:17 PM Modules accepted: Orders documented in this encounter Plan of Treatment Not on file documented as of this encounter Visit Diagnoses Diagnosis PVD (peripheral vascular disease) Peripheral vascular disease, unspecified Carotid stenosis, asymptomatic, bilateral documented in this encounter Care Teams Freight Inspector Relationship Specialty Start Date End Date Deloris Bello APRN PCP - General Family Medicine 03/15/15 07/02/16 documented as of this encounter
--- OUTSIDE RECORDS SUMMARY | 2024-03-11 16:14 | XMS_ITS | Encounter Summary ---
Author Organization [facility] Address [facility] [place] [address] Care Team Providers Care Marketing Finance Manager Name Role Phone Sylvia Torrez APRN Primary Care Provider [phone] Reason for Referral * Diagnostic Test (Routine) - Authorized Specialty Diagnoses / Procedures Referred By Indira t Referred To Contact Diagnoses History of revascularization procedure of lower extremity PAD (peripheral artery disease) Procedures RAO, legs, multiple levels Ann-Marie Lay APRN [facility] [place] [address] [facility] V[facility] [address] [address] Referral ID Status Reason Start Date Expiration Date Visits Requested Visits Authorized [id number] Authorized Specialty Service Requested 02/10/2024 02/09/2025 1 1 Encounter Details Date Type Department Care Team (Latest Contact Info) Description 02/08/2024 1:30 PM EDT Office [place] [address] Ann-Marie Lay APRN [facility] [place] [address] History of revascularization procedure of lower extremity; PAD (peripheral artery disease) Social History Tobacco [...] - Respiratory Rate - - Oxygen Saturation 100% 02/08/2024 1:13 PM EDT Inhaled Oxygen Concentration - - Weight 65.3 kg (144 lb) 02/08/2024 1:13 PM EDT Height - - Body Mass Index 26.34 12/29/2022 11:16 AM EDT documented in this encounter Progress Notes * Ann-Marie Lay, ROLLING MILL PLUGGER - 02/08/2024 1:30 PM EDT Vascular Follow-Up Reason for Visit: Jenn Garcia is a 78 y.o. female presenting for PAD. HPI: 78 y.o. female with PMH: Carotid stenosis, PAD s/p R fem-pop since occluded. Ms. Garcia presents to clinic for routine PAD follow up. She has a history of occluded right femoropopliteal bypass, however she denies claudication, rest pain and tissue loss. She has bilateral knee pain that limits her walking. Patient denies CVA or TIA since last clinic appointment. Denies episodes of unilateral extremity weakness, facial droop, acute change in vision or speech. No complaint of UE pain, tissue loss or fatigue. Denies chest pain and dyspnea presently. She takes a daily statin. ASA was d/c'd by PCP. Prior Vascular Hx: 09/2004: R fem-pop bypass @ OSH (occluded) Problem List: Patient Active Problem List Diagnosis Code PVD (peripheral vascular disease) I73.9 Carotid stenosis I65.29 Polymyalgia rheumatica M35.3 History of bilateral knee replacement DOS: 06/27/2005 Z96.653 Left knee pain M25.562 Medications: Current Outpatient Medications on File Prior to Visit Medication Sig Dispense Refill celecoxib (CeleBREX) 200 mg capsule Take 200 mg by mouth. triamcinolone (Kenalog) 0.1 % Cream APPLY A SMALL AMOUNT TO SKIN TWICE DAILY NEEDED PSORIASIS. LIMIT USE TO 2 WEEKS PER TREATMENT amitriptyline (ELAVIL) 50 mg Tablet TK 1 T PO QHS 4 lisinopril (PRINIVIL;ZESTRIL) 20 mg Tablet Take 20 mg by mouth daily. multivitamin (THERAGRAN) tablet Take 1 tablet by mouth daily. VITAMIN FOR WOMEN OVER 50 atorvastatin (LIPITOR) 40 mg tablet aspirin (ECOTRIN LOW STRENGTH) 81 mg EC tablet No current facility-administered medications on file prior to visit. Review of Systems: All other ROS negative except as noted in HPI. Physical Exam: BP 121/89 (BP Location (NBP): Left arm, Patient Position: Sitting, BP Cuff Sizes: Adult (25-34 cm)) Pulse (!) 110 Wt 65.3 kg (144 lb) SpO2 100% BMI 26.34 kg/m?? GEN: Alert and appears stated age. Cooperative. In NAD. HEENT: Normocephalic and atraumatic. CV: RRR. S1/S2 present. Pulm: Clear to auscultation bilaterally. Abd: No palpable aortic pulse or abdominal mass. Soft, non-distended, non-tender to palpation. Skin: Color, texture, turgor normal. No rashes or lesions. Neuro: No gross sensory or motor abnormality. Extremities: Bilateral UE and LE warm and pink. No edema. No wounds. Vascular Exam: R L Radial 2/2 2/2 Femoral 2/2 2/2 Popliteal 0/2 0/2 DP 0/2 0/2 PT 0/2 0/2 Labs: No results found for this or any previous visit (from the past 24 hour(s)). Studies: Recent Results (from the past 72 hour(s)) RAO, legs, multiple levels Result Value Ref Range VB Text Report Department: Vascular Surgery Lab Patient: [id number] (JENN GARCIA) CPT: 21439 Referring Physician: NORMAN HER Indications: f/u PAD Diabetes mellitus: no Findings: Right Pressure (mm Hg) RAO Waveform TBI Brachial Artery 121 Dorsalis Pedis (Ankle) Artery 91 0.75 [place]-Biphasic Posterior Tibial (Ankle) Artery 110 0.90 [place]-Biphasic Great Toe 69 0.57 Left Pressure (mm Hg) RAO Waveform TBI Brachial Artery 122 Dorsalis Pedis (Ankle) Artery 51 0.42 Monophasic Posterior Tibial (Ankle) Artery 48 0.39 Monophasic Great Toe 33 0.27 Interpretation: RIGHT: Mild lower extremity arterial occlusive disease. Significant improvement in CODING AND REIMBURSEMENT SPECIALIST compared to previous exam. No significant change in TBI compared. LEFT: Moderately severe lower extremity arterial occlusive disease. No significant change compared to previous exam. Previous ABIs with change from previous value: Date RIGHT DP RIGHT PT RT GR TOE RT Sec TOE 0.73 0.75 0.53 ---- 0.90(+.17) 0.87(+.12) ---- ---- 0.69(-.21) 0.75(-.12) 0.49 ---- 0.80(+.11) 0.88(+.13) ---- ---- 0.82(+.02) 0.84(-.04) ---- ---- 0.63(-.19) 0.76(-.08) ---- ---- 0.75(+.12) 0.80(+.04) 0.52 ---- 0.88(+.13) 0.85(+.05) 0.49(-.03) ---- 0.71(-.17) 0.73(-.12) 0.53(+.04) ---- Current 0.75(+.04) 0.90(+.17) 0.57(+.04) ---- Date LEFT DP LEFT PT LT GR TOE LT S ec TOE 0.35 0.47 0.23 ---- 0.46(+.11) 0.48(+.01) 0.22(-.01) ---- 0.34(-.12) 0.38(-.10) 0.20(-.02) ---- 0.41(+.07) 0.50(+.12) ---- ---- 0.41( .00) 0.51(+.01) ---- ---- 0.32(-.09) 0.44(-.07) ---- ---- 0.36(+.04) 0.41(-.03) 0.20 ---- 0.36( .00) 0.53(+.12) 0.27(+.07) ---- 0.41(+.05) 0.51(-.02) 0.27( .00) ---- Current 0.42(+.01) 0.39(-.12) 0.27( .00) ---- More studies have been completed than are shown. VB Text Report End of Report Assessment/Plan: 78 y.o. female w/ occluded R fem-pop bypass presenting for yearly surveillance with RAO. Improvement in R CODING AND REIMBURSEMENT SPECIALIST, otherwise ABIs with no significant change from previous studies and patient asymptomatic. Plan: - Recommend patient continue daily statin. Recommend restarting ASA 81 mg. - Recommend tight control of co-morbidities and continued abstinence from smoking. - Follow-up in the clinic in 1 year with RAO. - Instructed to call the clinic with any concerns prior to next appointment. Instructed to call 911for any s/sx of CLI including unilateral increased pain, decreased sensation or temperature, or tissue loss. Ann-Marie Lay APRN Department of Vascular Surgery documented in this encounter Plan of Treatment Not on file documented as of this encounter Visit Diagnoses Diagnosis History of revascularization procedure of lower extremity PAD (peripheral artery disease) Peripheral vascular disease, unspecified documented in this encounter Care Teams Marketing Finance Manager Relationship Specialty Start Date End Date [place] [address] PCP - General Family Medicine 08/03/21 documented as of this encounter
--- OUTSIDE RECORDS SUMMARY | 2024-03-11 16:14 | XMS_ITS | Encounter Summary ---
Author Organization [facility] [place] [address] Care Team Providers Care Naprapath Name Role Phone ShanSylvia APRN Primary Care Provider [phone] Reason for Referral * Diagnostic Test (Routine) - Closed Specialty Diagnoses / Procedures Referred By Contac t Referred To Contact Diagnoses History of revascularization procedure of lower extremity Procedures RAO, legs, multiple levels Norman Her MD [facility] [place] [address] [facility] Vascular [place] [address] [address] Referral ID Status Reason Start Date Expiration Date V isits Requested Visits Authorized [id number] Closed Specialty Service Requested 01/09/2023 01/09/2024 1 1 Encounter Details Date Type Department Care Team (Latest Contact Info) Description 12/29/2022 11:30 AM EDT Office [place] [phone] Norman Her MD [facility] [place] [address] History of revascularization procedure of lower extremity Social History Tobacco Use Types Packs/Day Years [...] Sign Reading Time Taken Comments Blood Pressure 131/78 12/29/2022 11:24 AM EDT Pulse 53 12/29/2022 11:24 AM EDT Temperature - - Respiratory Rate - - Oxygen Saturation - - Inhaled Oxygen Concentration - - Weight 66.7 kg (147 lb) 12/29/2022 11:16 AM EDT reported Height 157.5 cm (5' 2) 12/29/2022 11:16 AM EDT reported Body Mass Index 26.89 12/29/2022 11:16 AM EDT documented in this encounter Progress Notes * Norman Her MD - 12/29/2022 11:30 AM EDT Interval History: 77 yo woman returned for reevaluation of LEFT lower extremity peripheral vasculardisease . She reports no left lower extremity pain with ambulation. Denies signficant numbness. Denies foot ulcers or gangrenous toes. Notes continued LLE swelling and very dry skin on the plantar surface of her feet. She denies stroke, TIA, amaurosis fugax. Vascular History: Current Outpatient Medications: triamcinolone (Kenalog) 0.1 % Cream, APPLY A SMALL AMOUNT TO SKIN TWICE DAILY NEEDED PSORIASIS. LIMIT USE TO 2 WEEKS PER TREATMENT, Disp: , Rfl: amitriptyline (ELAVIL) 50 mg Tablet, TK 1 T PO QHS, Disp: , Rfl: 4 lisinopril (PRINIVIL;ZESTRIL) 20 mg Tablet, Take 20 mg by mouth daily., Disp: , Rfl: multivitamin (THERAGRAN) tablet, Take 1 tablet by mouth daily. VITAMIN FOR WOMEN OVER 50, Disp: , Rfl: atorvastatin (LIPITOR) 40 mg tablet, , Disp: , Rfl: aspirin (ECOTRIN LOW STRENGTH) 81 mg EC tablet, , Disp: , Rfl: LEFT LOWER EXTREMITY PVD # Left fem-pop bypass graft with vein, OSH, September 2004 for ischemic rest pain. # BPG thrombosed on POD1, salvaged with thrombectomy and revision. Post-op thigh wound infection # BPG intimal hyperplasia, treated with cryoplasty at [facility] [place]. 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 # LLE ischemic rest pain did not recur following BPG thrombosis PMH: Polymyalgia rheumatica rxd Prednisone [id number] DJD hands and knees with no inflammatory [...] very dry calloused skin. Noninvasive vascular studies: No results found for this or any previous visit (from the past 72 hour(s)). Impression & Plan: Stable bilateral PAD, no symptoms. ABIs on both sides have been stable over the past few years. Excellent atherosclerotic medical regimen including statin. Routine recommendations for continued ambulatory exercise and [...] encounter Results * RAO, legs, multiple levels (02/08/2024 12:34 PM EDT) VB Text Report Department: Vascular Surgery Lab Patient: [id number] (JENN GARCIA) CPT: 65669 Referring Physician: NORMAN HER ?? Indications: f/u PAD Diabetes mellitus: no Findings: Right ?Pressure (mm Hg) ?? RAO ??Waveform ?TBI ?? Brachial Artery ?121 ? Dorsalis Pedis (Ankle) Artery ?91 ?0.75 ??[place]-Biphasic ? Posterior Tibial (Ankle) Artery ??110 ? 0.90 ??[place]-Biphasic ? Great Toe ?69 ? 0.57 ?? Left ? Pressure (mm Hg) ?? RAO ??Waveform ? TBI ?? Brachial Artery ?122 ? Dorsalis Pedis (Ankle) Artery ?51 ?0.42 ??Monophasic ? Posterior Tibial (Ankle) Artery ??48 ?0.39 ??Monophasic ? Great Toe ?33 ?0.27 ?? Interpretation: RIGHT: Mild lower extremity arterial occlusive disease. Significant improvement in TRANSMISSION DESIGN ENGINEER compared to previous exam. No significant change [...] VASCUBASE 02/08/2024 12:3 4 PM EDT Norman Her MD VASCULAR ORDERABLES VASCUBASE documented in this encounter Visit Diagnoses Diagnosis History of revascularization procedure of lower extremity documented in this encounter Care Teams Naprapath Relationship Specialty Start Date End Date Sylvia Torrez, ROUND BONER [address] [place] [address] PCP - General Family Medicine 08/03/21 documented as of this encounter
--- OUTSIDE RECORDS SUMMARY | 2024-03-11 16:14 | XMS_ITS | Encounter Summary ---
Author Organization [facility] Address [address] [place] [address] Care Team Providers Care Sheet Combining Operator Name Role Phone Unavailable Primary Care Provider Unavailabl e Encounter Details Date Type Department Care Team (Late st Contact Info) Description 09/18/2000 Results Only [facility] [address] [place] [address] Jose Gunderson MD [address] [place] [address] Social History Tobacco Use Types [...] Priority Date/Time Associated Diagnosis Comments CYTOPATHOLOGY Routine 09/18/2000 0:00 EDT documented in this encounter Results * CYTOPATHOLOGY (09/18/2000 0:00 EDT) Pathology Report: CYTOPATHOLOGY REPORT Reports generated via electronic interface contain original data; however they are lacking the format of the original report. Caution should be taken when reading/interpreti ng unformatted reports. Name: ? JENN GARCIA ? Accession #: ? [id number] : ? 1945 (Age: 54) ??F ?Collect Date: ? 09/18/2000 Location: ? [facility] ? Receive Date: ? 09/20/2000 Provider: ?JOSE GUNDERSON MD Copy to: ? Specimen/Source: ?Conventional Pap Test, Cervix/Endocervix Last Menstrual Period: ? 5 years Hormonal/Contracep tive Status: ? Estrogen ? SPECIMEN ADEQUACY ? Satisfactory for evaluation. GENERAL CATEGORIZATION ? Within Normal Limits ? Document reviewed and electronically signed by: ? ÁLVARO Baird(ASCP) ? Report Date: ??09/21/2000 09:41 End of Report KIERRA SCRUGGS 09/18/2000 09/20/2000 Jose Gunderson MD PATHOLOGY ORDERABLES KIERRA SCRUGGS [address] [place] [address] documented in this encounter Visit Diagnoses Not on filedocumented in this encounter
--- OUTSIDE RECORDS SUMMARY | 2024-03-11 16:14 | XMS_ITS | Encounter Summary ---
Author Organization [facility] [place] [address] Care Team Providers Care Paint Supervisor Name Role Phone Pauline Gannon APRN Primary Care Provider [phone] Reason for Visit * Consultation (Routine) - Specialty Diagnoses / Procedures Referred By Indira whitfield Referred To Contact Vascular Surgery Diagnoses Peripheral vascular disease, unspecified Pauline Gannon APRN [address] [place] [address] [facility] [address] [place] [address] Referral ID Status Reason Start Date Expiration Date V isits Requested Visits Authorized [id number] Consult, Test & Treat Connection Center PCP Updated and/or Approved 01/15/2020 07/14/2020 6 6 Encounter Details Date Type Department Care Team (Late st Contact Info) Description 02/27/2020 1:00 PM EDT Tech [place] [phone] [place], [place] PVD (peripheral vascular disease) with claudication Social [...] Diagnosis Comments RAO, LEGS, MULTIPLE LEVELS Routine 02/27/2020 12:42 PM EDT PVD (peripheral vascular disease) with claudication documented in this encounter Results * RAO, legs, multiple levels (02/27/2020 12:42 PM EDT) VB Text Report Department: Vascular Surgery Lab Patient: [id number] (JENN GARCIA) CPT: 71493 ICD10: I73.9;I70.213 Referring Physician: RITA PERALTA APRN [...] ? Dorsalis Pedis (Ankle) Artery ?51 ?0.36 ??[place]-Biphasic ? Posterior Tibial (Ankle) Artery ??58 ?0.41 ??[place]-Biphasic ? Great Toe ?28 ? 0.20 ?? [...] unspecified documented in this encounter Care Teams Paint Supervisor Relationship Specialty Start Date End Date Pauline Gannon APRN [address] [place] [address] PCP - General Family Medicine 09/03/17 08/02/21 documented as of this encounter
--- OUTSIDE RECORDS SUMMARY | 2024-03-11 16:14 | XMS_ITS | Encounter Summary ---
[place] [address] Care Team Providers Care Wheel Blocker Name Role Phone Pauline Gannon APRN Primary Care Provider Encounter Details Date Type Department Care Team (Late st Contact Info) Description 10/18/2017 Orders [place] [id number] Yaquelin Maciel RN PVD (peripheral vascular disease) Social History Tobacco [...] unspecified documented in this encounter Care Teams Wheel Blocker Relationship Specialty Start Date End Date Pauline Gannon APRN [address] [place] [address] PCP - General Family Medicine 09/03/17 08/02/21 documented as of this encounter
--- OUTSIDE RECORDS SUMMARY | 2024-03-11 16:14 | XMS_ITS | Encounter Summary ---
Author Organization [facility] Address [facility] [place] [address] Care Team Providers Care Heat Treating Furnace Tender Name Role Phone Pauline Gannon KAVON Primary Care Provider [phone] Encounter Details Date Type Department Care Team (Latest Contact Info) Description 09/05/2017 12:33 PM EDT - 09/05/2017 11:59 PM EDT Hospital Encounter XRay at [address] [place] [address] Alison Arellano APRN [facility] [place] [address] History of total knee arthroplasty, left; History of arthroplasty of right knee Discharge Disposition: Home Social History Tobacco Use [...] Sig Dispensed Refills Start Date End Date amitriptyline (ELAVIL) 50 mg Tablet TK 1 T PO QHS 4 07/13/2015 lisinopril (PRINIVIL;ZESTRIL) 20 mg Tablet Take 20 mg by mouth daily. multivitamin (THERAGRAN) tablet Take 1 tablet by mouth daily. VITAMIN FOR WOMEN OVER 50 atorvastatin (LIPITOR) 40 mg tablet 03/10/2009 aspirin (ECOTRIN LOW STRENGTH) 81 mg EC tablet 03/10/2009 mometasone (ELOCON) 0.1 % Cream IMANI EXT AA QD FOR 10 DAYS 1 07/15/2015 12/29/2022 iron-vitamin C 65 mg iron- 125 mg Tablet, Delayed Release (E.C.) Take 65 mg by mouth. 02/27/2020 documented as of this encounter Plan of Treatment Not on file documented as of this encounter Procedures Procedure Name Priority Date/Time Associated Diagnosis Comments XR KNEE AP AND LAT BILAT Routine 09/05/2017 12:50 PM EDT History of total knee arthroplasty, left History of arthroplasty of right knee documented in this encounter Results * XR Knee 1-2 Views Bilat (Generic) (09/05/2017 12:50 PM EDT) Anatomical Region Laterality Modality Knee Bilateral Digital Radiogra phy Impressions 09/05/2017 3:31 PM EDT Bilateral total knee arthroplasties without radiographic evidence of complication. Narrative 09/05/2017 3:31 PM EDT EXAMINATION: XR KNEE 1-2 VIEWS BILAT (GENERIC) CLINICAL HISTORY: bilateral tka TECHNIQUE: Dual lateral and AP knees COMPARISON: September 30, 2015 FINDINGS: Bilateral total knee arthroplasties remain in satisfactory position without radiographic evidence of loosening or periprosthetic fracture. No suprapatellar effusion. Minimal radiolucency noted previously the anterior flange of the distal left femoral component is less evident on the current exam. Procedure Note aLure Noonan MD - 09/05/2017 EXAMINATION: XR KNEE 1-2 VIEWS BILAT (GENERIC) CLINICAL HISTORY: bilateral tka TECHNIQUE: Dual lateral and AP knees COMPARISON: September 30, 2015 FINDINGS: Bilateral total knee arthroplasties remain in satisfactory positionwithout radiographic evidence of loosening or periprosthetic fracture. Nosuprapatellar effusion. Minimal radiolucency noted previously the anterior flange ofthe distal left femoral component is less evident on the current exam. IMPRESSION Bilateral total knee arthroplasties without radiographic evidence of complication. Alison Arellano APRN IMG DX ORDERABLES documented in this encounter Visit Diagnoses Diagnosis History of total knee arthroplasty, left History of arthroplasty of right knee documented in this encounter Care Teams Heat Treating Furnace Tender Relationship Specialty Start Date End Date Pauline Gannon, FLEXO OPERATOR [address] [place] [address] PCP - General Family Medicine 09/03/17 08/02/21 documented as of this encounter
--- OUTSIDE RECORDS SUMMARY | 2024-03-11 16:14 | XMS_ITS | Encounter Summary ---
[place] [address] Care Team Providers Care Tobacco Wrapping Machine Tender Name Role Phone Shan, Sylvia Negro APRN Primary Care Provider Encounter Details Date Type Department Care Team (Late st Contact Info) Description 08/03/2021 10:30 AM EDT Tech [place] [phone] Cristóbal Velasquez, RVT PVD (peripheral vascular disease) with claudication Social [...] Diagnosis Comments RAO, LEGS, MULTIPLE LEVELS Routine 08/03/2021 10:38 AM EDT PVD (peripheral vascular disease) with claudication documented in this encounter Results * RAO, legs, multiple levels (08/03/2021 10:38 AM EDT) VB Text Report Department: Vascular Surgery Lab Patient: [id number] (JENN GARCIA) CPT: 99223 Referring Physician: NORMAN HER ?? Indications: PVD [...] unspecified documented in this encounter Care Teams Tobacco Wrapping Machine Tender Relationship Specialty Start Date End Date Sylvia Torrez, DISCHARGE PLANNER [address] [place] [address] PCP - General Family Medicine 08/03/21 documented as of this encounter
--- OUTSIDE RECORDS SUMMARY | 2024-03-11 16:14 | XMS_ITS | Encounter Summary ---
Author Organization [facility] Address [facility] [place] [address] Care Team Providers Care Portrait Painter Name Role Phone Grayson Mcduffie MD Primary Care Provider [phone] Reason for Visit * Reason Comments Leg Pain ABIS Severe PVD LLE Encounter Details Date Type Department Care Team (Late st Contact Info) Description 11/10/2013 4:00 PM EDT Follow-[place] [id number] Maria Cameron MD [facility] [place] [address] PVD (peripheral vascular disease) (Primary Dx) Discharge Disposition: Home Social History [...] Sign Reading Time Taken Comments Blood Pressure 140/58 11/10/2013 4:22 PM EDT Pulse 66 11/10/2013 4:22 PM EDT Temperature - - Respiratory Rate - - Oxygen Saturation - - Inhaled Oxygen Concentration - - Weight - - Height - - Body Mass Index - - documented in this encounter Progress Notes * Maria Cameron MD - 11/11/2013 3:01 PM EDT Interval History: 67 yo woman returned for reevaluation of advanced [...] BPG intimal hyperplasia, [place] [facility] # [...] on 07/30/12 # RAO 0.51 on 11/10/13 RIGHT LOWER EXTREMITY PVD # RAO 0.34 [...] on 11/10/13 with strongly palpable DP pulse CAROTID OCCLUSIVE DISEASE # Carotid duplex from [facility] on 02/06/05 revealed minimal stenosis on right, and 40-59% LEFT ICA stenosis. # Carotid duplex [facility] on 04/01/07 revealed no hemodynamically significant carotid artery stenoses. 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 Huber 02/13/03 H/O nonalcoholic fatty liver disease NSAID-induced colitis, by bx, 05/09/03 S/P bilat TKAs SH: , lives w Medications: Updated in eDH. List includes aspirin, atorvastatin (40 mg daily), amitriptyline, HCTZ, and multivitamins. Allergies: NKDA ROS: Constitutional Denies weight loss, [...] Physical Exam: Pleasant o/w woman NAD. BP 140/58 LUE, HR 78, and cardiac rhythm regular. Carotid pulses are normal, no bruits. Radial pulses are normal. Abdomen doft and nontender. Femoral pulses arenormal. The right lower extremity retains a normal palpable dorsalis pedis pulse. The left lower extremity has no DP or PT pulses. Motor exam of both lower extremities is normal. Sensation is fully in tact. LLE remains edematous, but there are no changes of chronic venous insufficiency or enlarged varicosities. She is correct in that the surfaces of both feet have very dry calloused skin. Noninvasive vascular studies: Results are recorded above. . Impression & Plan: Slowly improving bilateral PAD, no critical limb ischemia. ABIs on both sides are markedly improvedover past 9 years. Excellent atherosclerotic medical regimen including Lipitor. No carotid symptoms. I did not schedule a carotid duplex for today because she had minimal disease last year. We should check her carotids next year. Routine recommendations for continued ambulatory exercise and meticulous foot care. I recommended daily foot massage with skin lotion. She should stay on Lipitor and aspirin. I recommended a reevaluation in one year, and I warned her to call before then should she develop any advanced vascular ischemic symptoms or cerebrovascular symptoms. Maria Cameron M.D., Ph.D. Section of Vascular Surgery [facility] CC: Grayson Mcduffie M.D., Dionicio Jennings M.D. documented in this encounter Miscellaneous Notes * Addendum Note - Nery Laws RN - 11/12/2013 10:13 AM EDTAddended by: NERY LAWS on: 11/12/2013 10:13 AM Modules accepted: Orders documented in this encounter Plan of Treatment Not on file documented as of this encounter Procedures Procedure Name Priority Date/Time Associated Diagnosis Comments RAO, LEGS, MULTIPLE LEVELS Routine 11/10/2013 3:46 PM EDT PVD (peripheral vascular disease) documented in this encounter Results * RAO, legs, multiple levels (11/10/2013 3:46 PM EDT) VB Text Report Department: Vascular Surgery Lab Patient: [id number] (JENN GARCIA) CPT Code: 35169 ICD-9: 440.20 Referring Physician: MARIA CAMERON Indication: ?PVD; ? progression ICD9 Diagnosis Code: 440.20 Diabetes Mellitus: No Definitions: ?? RAO = Ankle / Brachial Systolic Pressure Index, TBI = Toe / Brachial Systolic Pressure Index Findings: Right ?Pressure (mm Hg) ?? RAO ??Waveform ?? Brachial Artery ?142 ? Dorsalis Pedis (Ankle) Artery ?116 ? 0.82 ??Biphasic ?? Posterior Tibial (Ankle) Artery ??119 ? 0.84 ??Biphasic ?? Left ? Pressure (mm Hg) ?? RAO ??Waveform ? Brachial Artery ?136 ? Dorsalis Pedis (Ankle) Artery ?58 ?0.41 ??Monophasic ? Posterior Tibial (Ankle) Artery ??73 ?0.51 ??[place]-Biphasic ?? Interpretation: RIGHT: Mild lower extremity arterial occlusive disease. No significant change compared to previous exam done 07/30/2012. LEFT: Moderately severe lower extremity arterial occlusive disease. No significant change compared to previous exam done 07/30/2012. Previous ABIs with change from previous value: Date ?RIGHT DP ?? RIGHT PT ?? RT GR TOE ??LEFT DP ?LEFT PT ?LT GR TOE ??0.74 ? 0.71 ? 0.47 ? 0.25 ? 0.38 ? 0.25 ??0.73(-.01) 0.75(+.04) 0.53(+.06) 0.35(+.10) 0.47(+.09) 0.23(-.02) ??0.90(+.17) 0.87(+.12) ---- ? 0.46(+.11) 0.48(+.01) 0.22(-.01) ??0.69(-.21) 0.75(-.12) 0.49 ? 0.34(-.12) 0.38(-.10) 0.20(-.02) ??0.80(+.11) 0.88(+.13) ---- ? 0.41(+.07) 0.50(+.12) ---- Current ? 0.82(+.02) 0.84(-.04) ---- ? 0.41( .00) 0.51(+.01) ---- Electronically Signed by: MARIA CAMERON on 2013-11-10 09:06:25 PM VASCUBASE VB Text Report End of Report VASCUBASE 11/10/2013 3:46 PM EDT Maria Cameron MD VASCULAR ORDERABLES VASCUBASE documented in this encounter Visit Diagnoses Diagnosis PVD (peripheral vascular disease)- Primary Peripheral vascular disease, unspecified documented in this encounter Care Teams Portrait Painter Relationship Specialty Start Date End Date Grayson Mcduffie MD PCP - General 03/29/10 03/14/15 documented as of this encounter
--- OUTSIDE RECORDS SUMMARY | 2024-03-11 16:14 | XMS_ITS | Encounter Summary ---
Author Organization [facility] Address [facility] [place] [address] Care Team Providers Care Flatcar Whacker Name Role Phone Dona Belloafshan Hillman APRN Primary Care Provider [phone] Encounter Details Date Type Department Care Team (Latest Contact Info) Description 09/30/2015 12:32 PM EDT - 09/30/2015 11:59 PM EDT Hospital Encounter XRay at [address] [place] [address] Seamus Flower MD History of total knee arthroplasty, bilateral Discharge Disposition: Home Social History Tobacco [...] XR KNEE AP AND LAT BILAT Routine 09/30/2015 12:58 PM EDT History of total knee arthroplasty, bilateral documented in this encounter Results * XR Knees 1 Or 2 Views - Bilateral (09/30/2015 12:58 PM EDT) Anatomical Region Laterality Modality Knee Bilateral Digital Radiogra phy Impressions 09/30/2015 1:35 PM EDT Very small left suprapatellar joint effusion and an area of increased radiolucency adjacent to the anterior distal femoral flange of the prosthesis and cortical bone. ??Orthopedic surgery was called by our music coordinator about this noted finding, at 1:[address] Hebert's request. ?? Narrative 09/30/2015 1:35 PM EDT EXAMINATION: XR KNEES 1 OR 2 VIEWS BILATERAL CLINICAL HISTORY: ANNUAL CHECK BILAT TKA'S TECHNIQUE: AP standing knees and bilateral lateral views COMPARISON: Prior imaging 08/12/2007 and 03/10/2009 and 05/13/2012. FINDINGS: Compared to prior imaging there remains a small left suprapatellar joint effusion as well as calcifications in the soft tissues anteriorly likely related to superficial subcutaneous calcifications. There is a minimal radiolucency along the anterior flange of the distal femoral component. This is slightly more prominent than on prior imaging. No evidence for periprosthetic fracture. Procedure Note Danna Hebert MD - 09/30/2015 EXAMINATION: XR KNEES 1 OR 2 VIEWS BILATERAL CLINICAL HISTORY: ANNUAL CHECK BILAT TKA'S TECHNIQUE: AP standing knees and bilateral lateral views COMPARISON: Prior imaging 08/12/2007 and 03/10/2009 and 05/13/2012. FINDINGS: Compared to prior imaging there remains a small left suprapatellar joint effusion as well as calcifications in the soft tissues anteriorly likelyrelated to superficial subcutaneous calcifications. There is a minimalradiolucency along the anterior flange of the distal femoral component. This isslightly more prominent than on prior imaging. No evidence for periprostheticfracture. IMPRESSION Very small left suprapatellar joint effusion and an area of increased radiolucency adjacent to the anterior distal femoral flange of theprosthesis and cortical bone. Orthopedic surgery was called by our Outreachcoordinator about this noted finding, at 1:[address] Hebert's request. Seamus Flower MD IMG DX ORDERABLES documented in this encounter Visit Diagnoses Diagnosis History of total knee arthroplasty, bilateral documented in this encounter Care Teams Flatcar Whacker Relationship Specialty Start Date End Date Deloris Bello, KAVON PCP - General Family Medicine 03/15/15 07/02/16 documented as of this encounter
--- OUTSIDE RECORDS SUMMARY | 2024-03-11 16:14 | XMS_ITS | Referral Summary ---
Author Organization [facility] Address [address] [place] [address] Care Team Providers Care Music Industry Intern Name Role Phone Grayson Mcduffie MD Primary Care Provider [phone] Social History Tobacco Use Types Packs/Day Years Used Date Smoking Tobacco: Never Assessed Sex and Gender Information Value Date Recorded Sex Assigned at Not on file Gender Identity Not on file Sexual Orientation Not on file Plan of Treatment Not on file Care Teams Music Industry Intern Relationship Specialty Start Date End Date Grayson Mcduffie MD PCP - General 03/15/15
--- OUTSIDE RECORDS SUMMARY | 2024-03-11 16:14 | XMS_ITS | Encounter Summary ---
Author Organization [facility] Address [facility] [place] [address] Care Team Providers Care Carbide Tool Maker Name Role Phone Grayson Mcduffie MD Primary Care Provider [phone] Reason for Visit * Reason Comments Follow-up CAROTIDS/RAO'S Encounter Details Date Type Department Care Team (Late st Contact Info) Description 07/30/2012 3:40 PM EDT Follow-Up [place] [phone] Maria Cameron MD [facility] [place] [address] PVD (peripheral vascular disease) (Primary Dx) Discharge [...] Sign Reading Time Taken Comments Blood Pressure 137/84 07/30/2012 3:24 PM EDT RIG HT Pulse 67 07/30/2012 3:24 PM EDT Temperature - - Respiratory Rate - - Oxygen Saturation - - Inhaled Oxygen Concentration - - Weight 77.1 kg (170 lb) 07/30/2012 3:23 PM EDT Height 157.5 cm (5' 2) 07/30/2012 3:23 PM EDT Body Mass Index 31.09 07/30/2012 3:23 PM EDT documented in this encounter Progress Notes * Maria Cameron MD - 07/30/2012 3:43 PM EDT Interval History: 66 yo woman returned for reevaluation of advanced LEFT lower extremity peripheralvascular disease and mild cerebrovascular disease. She is in good spirits and reports no deterioration in left lower extremity pain with ambulation. Denies signficant numbness. Denies foot ulcers or gangrenous toes. Notes continued LLE swelling She denies stroke, TIA, amaurosis fugax. Vascular History: LEFT LOWER EXTREMITY PVD # Left fem-pop bypass graft with vein, OSH, September 2004 for ischemic rest pain. # BPG thrombosed on POD1, salvaged with thrombectomy and revision. 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 # LLE ischemic rest pain did not recur following BPG thrombosis # RAO 0.38 in Jan 2005. # RAO 0.36 on 01/05/06. # RAO 0.29 on 02/25/07 # RAO 0.38 on 03/10/08 # RAO 0.47 with TBI 0.23 on 03/10/09 # RAO 0.50 on 07/30/12 RIGHT LOWER EXTREMITY PVD # RAO 0.34 in Apr 09 # RAO 0.56 in May 11 # RAO 0.71 in Jan 09 # RAO 0.73 on 01/05/06 # RAO 0.61 on 02/25/07 # RAO 0.74 on 03/10/08 # RAO 0.75 with TBI 0.53 on 03/10/09 # RAO 0.90 on 05/18/10 # RAO 0.88 on 07/30/12 with strongly palpable DP pulse CAROTID OCCLUSIVE DISEASE # Carotid duplex from [facility] on 02/06/05 revealed minimal stenosis on right, and 40-59% LEFT ICA stenosis. # Carotid duplex [facility] on 04/01/07 revealed no hemodynamically significant carotid artery stenoses. 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 Huber 02/13/03 H/O nonalcoholic fatty liver disease NSAID-induced colitis, by bx, 05/09/03 S/P bilat TKAs FHSH: , lives w Medications: Updated in eDH Allergies: Updated in eDH ROS: Constitutional Denies weight loss, fevers or [...] Physical Exam: Pleasant o/w woman NAD. BP 137/84 LUE, HR 68, and cardiac rhythm regular. Carotid pulses are normal, no bruits. Radial pulses are normal. Abdomen doft and nontender. Femoral pulses arenormal. The right lower extremity retains a normal palpable dorsalis pedis pulse. The left lower extremity has no DP or PT pulses. Motor exam of both lower extremities is normal. Sensation is fully in tact. LLE is minimally edematous. Noninvasive vascular studies: Results are recorded above. Review of the timeline reveals a remarkable reduction in RLE>LLE PVD over time as well as a reduction in carotid stenosis. Impression & Plan: Stable or perhaps slowly improving LLE PAD, no critical limb ischemia. Status also markedly improved on RIGHT over past 8 years. Excellent atherosclerotic medical regimen including Lipitor. No carotid symptoms and no carotid stenosis. Once again if we can truly compare noninvasives over time, it looks as if she may have had some plaque regression. Routine recommendations for contineud ambulatory exercise and meticulous foot care. She should stayon Lipitor and aspirin. I recommend a reevaluation in one year, and I warned her to call before then should she develop any advanced vascular ischemic symptoms or cerebrovascular symptoms. No cerebrovascular symptoms. No severe stenosis. Does not need a follow-up carotid duplex for at least 2 years. Maria Cameron M.D., Ph.D. Section of Vascular Surgery [facility] CC: Grayson Mcduffie M.D., Dionicio Jennings M.D. documented in this encounter Miscellaneous Notes * Addendum Note - Michelle Quesada RN - 09/17/2012 12:50 PM EDTAddended by: MICHELLE QUESADA on: 09/17/2012 12:50 PM Modules accepted: Orders documented in this encounter Plan of Treatment Not on file documented as of this encounter Results * RAO, legs, multiple levels (11/10/2013 3:46 PM EDT) VB Text Report Department: Vascular Surgery Lab Patient: [id number] (JENN GARCIA) CPT Code: 85308 ICD-9: 440.20 Referring Physician: MARIA CAMERON Indication: [...] ? Posterior Tibial (Ankle) Artery ??73 ?0.51 ??[place]-Biphasic ?? Interpretation: RIGHT: Mild lower extremity arterial [...] unspecified documented in this encounter Care Teams Carbide Tool Maker Relationship Specialty Start Date End Date Grayson Mcduffie MD PCP - General 03/29/10 03/14/15 documented as of this encounter
--- OUTSIDE RECORDS SUMMARY | 2024-03-11 16:14 | XMS_ITS | Encounter Summary ---
Author Organization [facility] [place] [address] Care Team Providers Care Bootmaker Name Role Phone Sylvia Torrez APRN Primary Care Provider [phone] Reason for Referral * Consultation (Priority 3) - Closed Specialty Diagnoses / Procedures Referred By Indira t Referred To Contact Dermatology Diagnoses Psoriasis Sylvia Torrez APRN [address] [place] [address] [facility] [address] [place] [address] Referral ID Status Reason Start Date Expiration Date V isits Requested Visits Authorized [id number] Closed Consult, Test & Treat PCP Updated and/or Approved 09/22/2022 09/23/2023 12 12 Encounter Details Date Type Department Care Team (Late st Contact Info) Description 10/03/2022 Transcribe Orders eDH Incoming Referrals [phone] Sylvia Torrez APRN [address] [place], [place] [id number] Psoriasis Social History Tobacco Use Types Packs/Day Years [...] as of this encounter Plan of Treatment Scheduled Referrals Name Type Priority Associated Diagnoses Order Schedule Referral to Dermatology Outpatient Referral Routine Psoriasis Ordered: 10/03/2022 documented as of this encounter Visit Diagnoses Diagnosis Psoriasis Other psoriasis documented in this encounter Care Teams Bootmaker Relationship Specialty Start Date End Date Sylvia Torrez, DRIVE THRU ORDER TAKER [address] [facility] [address] PCP - General Family Medicine 08/03/21 documented as of this encounter
--- OUTSIDE RECORDS SUMMARY | 2024-03-11 16:14 | XMS_ITS | Encounter Summary ---
Author Organization [facility] [place] [address] Care Team Providers Care Hold Worker Name Role Phone Shan, Sylvia Negro APRN Primary Care Provider [phone] Encounter Details Date Type Department Care Team (Latest Contact Info) Description 02/08/2024 1:00 PM EDT Tech [place] [phone] [place] History of revascularization procedure [...] of lower extremity documented in this encounter Results * RAO, legs, multiple levels (02/08/2024 12:34 PM EDT) VB Text Report Department: Vascular Surgery Lab Patient: [id number] (JENN GARCIA) CPT: 68665 Referring Physician: NORMAN LUIS ?? Indications: f/u PAD Diabetes mellitus: no Findings: Right ?Pressure (mm Hg) ?? RAO ??Waveform ?TBI ?? Brachial Artery ?121 ? Dorsalis Pedis (Ankle) Artery ?91 ?0.75 ??[place]-Biphasic ? Posterior Tibial (Ankle) Artery ??110 ? 0.90 ??[place]-Biphasic ? Great Toe ?69 ? 0.57 ?? Left ? Pressure (mm Hg) ?? RAO ??Waveform ? TBI ?? Brachial Artery ?122 ? Dorsalis Pedis (Ankle) Artery ?51 ?0.42 ??Monophasic ? Posterior Tibial (Ankle) Artery ??48 ?0.39 ??Monophasic ? Great Toe ?33 ?0.27 ?? Interpretation: RIGHT: Mild lower extremity arterial occlusive disease. Significant improvement in PULLMAN CAR REPAIRER compared to previous exam. No significant change [...] EDT Norman Luis MD VASCULAR ORDERABLES VASCUBASE documented in this encounter Visit Diagnoses Diagnosis History of revascularization procedure of lower extremity documented in this encounter Care Teams Hold Worker Relationship Specialty Start Date End Date Sylvia Torrez, MARINE STEAM [place] [address] PCP - General Family Medicine 08/03/21 documented as of this encounter
--- OUTSIDE RECORDS SUMMARY | 2024-03-11 16:14 | XMS_ITS | Encounter Summary ---
Author Organization [facility] Address [facility] [place] [address] Care Team Providers Care Information Systems Professor Name Role Phone Grayson Mcduffie MD Primary Care Provider [phone] Encounter Details Date Type Department Care Team (Latest Contact Info) Description 05/13/2012 1:50 PM EST - 05/13/2012 11:59 PM EST Hospital Encounter XRay at [address] [place] [address] S/P knee replacement Social History Tobacco Use Types Packs/Day [...] Sig Dispensed Refills Start Date End Date multivitamin (THERAGRAN) tablet Take 1 tablet by mouth daily. VITAMIN FOR WOMEN OVER 50 atorvastatin (LIPITOR) 40 mg tablet 03/10/2009 aspirin (ECOTRIN LOW STRENGTH) 81 mg EC tablet 03/10/2009 amitriptyline (ELAVIL) 25 mg tablet 03/10/2009 09/30/2015 documented as of this encounter Plan of Treatment Not on file documented as of this encounter Procedures Procedure Name Priority Date/Time Associated Diagnosis Comments XR KNEE AP AND LAT BILAT Routine 05/13/2012 2:05 PM EST S/P knee replacement documented in this encounter Results * XR knee bilateral1 or 2 view (05/13/2012 2:05 PM EST) Anatomical Region Laterality Modality Knee Bilateral Radiographic Aida ging 05/13/2012 2:05 PM EST Narrative 05/13/2012 3:11 PM EST Examination KNEE BILATERAL 1 OR 2 VIEWS Clinical History ANNL RCHCK BILAT TKA Comparison 03/10/2009 Technique AP and lateral views Findings No change or complication is identified. Procedure Note Neel Vaughan MD - 05/13/2012 Examination KNEE BILATERAL 1 OR 2 VIEWS Clinical History ANNL RCHCK BILAT TKA Comparison 03/10/2009 Technique AP and lateral views Findings No change or complication is identified. Mundo Ridley MD IMG DX ORDERABLES documented in this encounter Visit Diagnoses Diagnosis S/P knee replacement Knee joint replacement by other means documented in this encounter Care Teams Information Systems Professor Relationship Specialty Start Date End Date Grayson Mcduffie MD PCP - General 03/29/10 03/14/15 documented as of this encounter
--- OUTSIDE RECORDS SUMMARY | 2024-03-11 16:14 | XMS_ITS | Encounter Summary ---
Author Organization [facility] [place] [address] Care Team Providers Care Director Project Management Name Role Phone Grayson Mcduffie MD Primary Care Provider [phone] Reason for Visit * Reason Onset Date Comments Reminder Appointment 05/26/2014 Encounter Details Date Type Department Care Team (Late st Contact Info) Description 05/26/2014 [place] [phone] Mundo Ridley MD [address] [place] [address] Reminder Appointment Social History Tobacco Use Types Packs/Day [...] encounter Miscellaneous Notes * Telephone Encounter - Benita Meyer - 05/28/2014 11:28 AM EST Patient Scheduled * Telephone Encounter - Agustina Kaplan - 05/26/2014 2:45 PM EST I have called and left a message for patient to call and schedule their reminder appointment. documented in this encounter Plan of Treatment Not on file documented as of this encounter Visit Diagnoses Not on filedocumented in this encounter Care Teams Director Project Management Relationship Specialty Start Date End Date Grayson Mcduffie MD PCP - General 03/29/10 03/14/15 documented as of this encounter
--- OUTSIDE RECORDS SUMMARY | 2024-03-11 16:14 | XMS_ITS | Encounter Summary ---
Author Organization [facility] Address [facility] [place] [address] Care Team Providers Care Atmospheric Sciences Professor Name Role Phone Pauline Gannon KAVON Primary Care Provider [phone] Reason for Visit * Reason Comments Follow Up Surgery Bilat TKA Encounter Details Date Type Department Care Team (Late st Contact Info) Description 09/05/2017 2:00 PM EDT Office [place] [id number] Nuria Arellano APRN [facility] [place] [address] History of bilateral knee replacement DOS: 06/27/2005 Social History Tobacco Use Types Packs/Day Years [...] Sign Reading Time Taken Comments Blood Pressure 92/66 09/05/2017 2:08 PM EDT Pulse 78 09/05/2017 2:08 PM EDT Temperature - - Respiratory Rate - - Oxygen Saturation - - Inhaled Oxygen Concentration - - Weight 68 kg (150 lb) 09/05/2017 2:08 PM EDT Height 157.5 cm (5' 2) 09/05/2017 2:08 PM EDT Body Mass Index 27.44 09/05/2017 2:08 PM EDT documented in this encounter Progress Notes * Nuria Arellano APRN - 09/05/2017 2:00 PM EDT Arthroplasty/Orthopaedic History: 1. Both knee TKA DOS: 06/27/[address] Ridley Right. Chief Complaint: Bilateral knee TKA. HPI: Jenn Garcia is a very pleasant 71 y.o. year-old female and is now 12 years post bilateral total knee replacement The patient has been doing very well. She is not having any pain. No fevers, chills, nausea, vomiting, or symptoms of infection. Jenn has been ambulating with no assistive device and remains active and independent with ADL's. She does use oral antibiotics with dental work. Nointerval falls, injuries or infections. Other than dry skin and eczema her health has been stable otherwise. Patient's medications, allergies, past medical, surgical, social and family histories were reviewedand updated as appropriate. ROS: Denies: fever, chills, night sweats, nausea, or vomiting BP 92/66 (BP Location (NBP): Left arm, Patient Position: Sitting, BP Cuff Sizes: Adult (25-34 cm)) Pulse 78 Ht 157.5 cm (5' 2) Wt 68 kg (150 lb) BMI 27.44 kg/m2 Physical Exam: Well-appearing female in no acute distress. Alert and Oriented x 3 and answers all questions appropriately. The incisions are well healed, with no signs of infection. I have made the following determinations: Post Op Right Knee Exam: Knee ROM: Extension:0 Flexion: 115 Alignment: 0-4 degrees Neutral Stability: A/P Translation <5mm. Varus <5mm Valgus <5mm Extension La degrees or less Patella Tracking: Normal Pulses Palpable: Right PT: Yes Right DP:Yes Motor/Sensory: Distal Motor: Normal Distal Sensory: Normal Quadriceps Strength: 5 Post Op Left Knee Exam: Knee ROM: Extension:0 Flexion: 115 Alignment: 0-4 degrees Neutral Stability: A/P Translation <5mm Varus <5mm Valgus <5mm Extension La degrees or less Patella Tracking: Normal Pulses Palpable: Left PT:Yes Left DP:Yes Motor/Sensory: Distal Motor: Normal Distal Sensory: Normal Quadriceps Strength:5 X-RAYS: Multiple radiographic views were obtained at my request and reviewed with the patient. X-rays show both knee well-placed prosthesis with no evidence of fracture, subsidence, loosening, or periprosthetic complication. Questionnaire Responses: [facility] Surgical Postop Visit 09/05/2017 PROMIS-10 General Health Good PROMIS-10 Quality of Life Good PROMIS-10 Physical Health Good PROMIS-10 Mental Health Good PROMIS-10 Social Activity Good PROMIS-10 Everyday Activities Mostly PROMIS-10 Pain 0 -No Pain PROMIS-10 Fatigue Mild PROMIS-10 Social Roles Good PROMIS-10 Anxious or Depressed Rarely PROMIS PHYSICAL HEALTH SCORE 50.8 PROMIS MENTAL HEALTH SCORE 45.8 KOOS JR Scores 76.33 Problems with surgical incision/wound after surgery No Gone to ER since knee surgery No Admitted to hospital since recent ortho surgery No Additional surgery on same body part No TKA Grade 8 Pain in other KNEE None Back pain at this moment None Satisfaction with Treatment Satisfied Choose Same Treatment Again Definitely yes Orthopeadics [facility] Response 09/05/2017 KOOS JR Scores 76.33 Spine [facility] Response 09/05/2017 KOOS JR Scores 76.33 ASSESSMENT/PLAN: Ms. Garcia is a 71 y.o. year old female status post bilateral total knee replacement. Jenn continues to do well with her both knee TKA. Activity precautions to prevent premature implant failure and joint specific exercises reviewed. We will see her back in 3 years for repeat examination. X- rays will be needed at that time. Patient may continue with normal activities as her pain and function allow. We discussed the appropriate precautions surrounding dental prophylaxis; according to the AAOS Appropriate Use Criteria we do not recommend antibiotic use prior to dental procedures for Jenn. However, she would prefer to continue with antibiotic use, therefore Recommended antibiotic: Amoxacillin 2000 mg one hour before dental work. If Jenn has any changes in health status we recommend she contact our office prior to dental procedures for updated recommendations We also discussed maintaining good foot care and giving prompt attention to any source of infectionthroughout the body including foot ulcers and urinary tract infections. All questions were answered. Signed: NURIA ARELLANO APRN 09/05/2017 documented in this encounter Plan of Treatment Not on file documented as of this encounter Visit Diagnoses Diagnosis History of bilateral knee replacement DOS: 06/27/2005 documented in this encounter Care Teams Atmospheric Sciences Professor Relationship Specialty Start Date End Date Pauline Gannon APRN [address] [place] [address] PCP - General Family Medicine 09/03/17 08/02/21 documented as of this encounter
--- OUTSIDE RECORDS SUMMARY | 2024-03-11 16:15 | XMS_ITS | Encounter Summary ---
Author Organization [facility] [place] [address] Care Team Providers Care Education Nurse Name Role Phone Shan, Sylvia Negro APRN Primary Care Provider [phone] Encounter Details Date Type Department Care Team (Late st Contact Info) Description 06/27/2005 Orders Only Orthopaedics at [facility] [address] [place] [address] Mundo Ridley MD [address] [place] [address] Social History Tobacco Use Types Packs/Day Years Used Date Smoking Tobacco: Never Assessed Sex and Gender Information Value Date Recorded Sex Assigned at Not on file Gender Identity Not on file Sexual Orientation Not on file documented as of this encounter Plan of Treatment Not on file documented as of this encounter Procedures Procedure Name Priority Date/Time Associated Diagnosis Comments SURGICAL PATHOLOGY REPORT Routine 06/27/2005 10:08 AM EST documented in this encounter Results * Surgical Pathology Report (06/27/2005 10:08 AM EST) Surgical Pathology Report [id number] ? Location: [facility]; [facility] [place]; A The signing pathologist has (i) examined the relevant preparation(s) for the specimen(s) and (ii) rendered or confirmed the diagnosis(es). . ?Pathology Surgical Pathology Final Report Clinical Information Specimen Submitted: A - Bone from both knees, Both knees. Clinical History: Bilat knee. Gross Description Labeled/Fixativ e: ? Bone from both knees, fresh. Quantity/Size: ?Multiple, 14.0 x 10.0 x 4.0 cm in aggregate. Tissue Description: ?? Fragments of yellow-white, hard, irregular bone, ?cartilage and soft tissue. ??The articular surfaces ?are red, finely granular. ??Eburnation: ? Present. ??Osteophytes: ?Present. Sections/Proces sing: ??No sections are submitted. 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 ?? Gross surgical pathology examination. CR-0 06/28/05 AJE 06/29/05 Verified by: ? Nilda Mendez, DO ?Pathologist ?(Electronic Signature) The attending pathologist whose signature appears on this report has reviewed all diagnostic slides and has edited the gross and/or microscopic portion of the report in rendering the final pathologic diagnosis. RICHARD VINSON 06/27/2005 10:0 8 AM EST Mundo Ridley MD PATHOLOGY/CYTOLOGY O RDERABLES RICHARD VINSON documented in this encounter Visit Diagnoses Not on filedocumented in this encounter Care Teams Education Nurse Relationship Specialty Start Date End Date Sylvia Torrez, JUNIOR [place] [address] PCP - General Family Medicine 08/03/21 documented as of this encounter
[2024-03-11 20:20] LABS: Iron 57 ug/dL (50-170); Total Iron Binding Capacity 264 ug/dL (250-450); Transferrin Sat 22 % (15-50)
[2024-03-11 20:28] LABS: Ferritin 319 ng/mL (8-252); TSH (W/Ref FT4) 1.12 uIU/mL (0.36-3.74)
== END 2024-03-11 16:12 | disposition home or self-care (01) ==
LOC: NCHCN 16:11
PROVIDERS: PCP Nurse Practitioner Family; Visit Provider Nurse Practitioner Family
DX: I48.91 Unspecified atrial fibrillation (principal)
CPT/HCPCS: 82728; 83540; 83550; 84443

== ENCOUNTER 2024-03-26 01:53 | Outpatient (CLI) | payer MEDICARE, SELFPAY ==
--- NOTE | 2024-03-26 09:18 | DI.US_ITS ---
APPROVED REPORT EXAM: Comprehensive 2D, Doppler, and color-flow Echocardiogram Patient Location: Out-Patient Order Processor: Tish Link RDCS (AE) Indications: New onset atrial fibrillation Other Information Study Quality: Adequate Conclusion Normal left ventricular wall thickness and chamber size. Ejection fraction is 55%. Wall motion is n ormal Normal right ventricular size and function Both atria are moderately enlarged Aortic valve is trileaflet without stenosis or regurgitation Mitral annular calcification. Moderate mitral regurgitation Normal tricuspid valve with moderate regurgitation Estimated right ventricular systolic pressure is 45 mmHg Borderline dilated ascending aorta Wall motion Left Ventricle The left ventricle is normal size. The overall left ventricular systolic function appears normal. Allyson t to beat variation, arrhythmia throughout exam. There is normal left ventricular wall thickness. The re is normal LV segmental wall motion. There is no ventricular septal defect visualized. LVEF is 55%. Right Ventricle The right ventricle is normal size. The right ventricular systolic function is normal. Atria Left atrium is moderately dilated. Right atrium is moderately dilated. The interatrial septum is inta ct with no evidence for an atrial septal defect. Aortic Valve The aortic valve is normal in structure. Aortic valve is trileaflet. There is no aortic valvular sten osis. No aortic regurgitation is present. Mitral Valve Mild mitral annular calcification. No evidence of mitral valve stenosis. Moderate mitral regurgitati on. Tricuspid Valve The tricuspid valve is normal in structure. There is no tricuspid valve stenosis. Moderate tricuspid regurgitation. The RVSP is 45.5 mmHg. Pulmonic Valve The pulmonary valve is normal in structure. There is no pulmonic valvular stenosis. There is no pulmo stanford valvular regurgitation. Great Vessels The aortic root is normal in size. The ascending aorta is mildly dilated. Aortic arch is not well vis ualized. The IVC collapses <50% with inspiration. Pericardium There is no pericardial effusion. 2D Dimensions IVSD d PLAX 0.84 cm F: 0.6-1.0 Ao Root d 2.57 cm F: 2.7 - 3.3 LVPW d PLAX 0.83 cm F: 0.6 - 1.0 Ao Asc Diam d 3.35 cm F: 2.3 - 3.1 LVID d PLAX 4.45 cm F: 3.8 - 5.2 LVDs 3.19 cm F: 2.2 - 3.5 LV EF Teichholz 54.7 % FS 28.21 % LV EDV (Teich) 89.9 mL LV ESV (Teich) 40.7 mL M-Mode TAPSE 1.61 cm (M/F) >1.7 Auto EF LV EDV A4C 77.8 mL LV EDV A2C 76.7 mL LV EDV BP 76.7 mL LV ESV A4C 34.8 mL LV ESV A2C 34.2 mL LV ESV BP 34.1 mL LVEF(%) A4C 55.3 % LVEF(%) A2C 55.4 % LVEF(%) BP 55.5 % LV SV A4C 43.0 ml LV SV A2C 42.5 ml LV SV BP 42.6 ml LV CO A4C 3.9 L/min LV CO A2C 3.2 L/min LV CO BP 3.5 L/min HR A4C 89.78 BPM HR A2C 76.28 BPM LV EDV Index (BP) LA Volume LA Length A4C 6.0 cm LA Length A2C 5.2 cm LA Area A4C s 20.36 cm2 LA Area A2C s 21.84 cm2 LA Vol A4C A-L 58.32 mL LA Vol A2C A-L 77.91 mL LA Vol Biplane A-L 72.6 mL LA Vol/BSA A4C A-L LA Vol/BSA A2C A-L LA Vol/BSA BP A-L 43.0 mL/m2 LA Vol A4C MOD 53.9 mL LA Vol A2C MOD 73.9 mL LA Vol BP MOD 67.8 mL RA Volume RA Area A4C 15.6 cm2 RA ESV A4C (A-L) 39.8mL RA Vol/BSA A4C A-L RA Length A4C 5.2 cm RA ESV A4C (MOD) 37.8mL LV Diastology MV E' medial 0.113 (>0.07 m/s) MV E Vmax 1.44 (0.4-1.3 m/s) MV E' lateral 0.108 (>0.1 m/s) Aortic Valve AoV Vmax 1.05 m/s LVOT Vmax 0.89 m/s AoV Peak Grad 4.4 mmHg LVOT Peak Grad 3.2 mmHg AoV Area (Vmax) 2.38 cm2 LVOT VTI 0.195 m AoV VTI 0.266 m LVOT Mean Grad 1.5 mmHg AoV Mean Alessio. 0.74 m/s LVOT SV 54.87 mL AoV Mean Grad 2.4 mmHg LVOT Diam s 1.85 cm AoV Area (VTI) 2.06 cm2 AV Regurg Peak Gr. 4.42 mmHg Velocity Ratio 0.85 Mitral Valve MV Vmax TIPS 1.63 m/s MV Mean Grad 4.4 (<2mmHg) MV Area PHT 4.25 cm2 MV VTI 0.324 m Pulmonary Valve PV Vmax 0.68 (0.5-1.5 m/s) RVOT Vmax 0.64 m/s PV Peak Grad 1.9 mmHg RVOT Peak Gr. 1.6 mmHg PV Mean Alessio 0.55 m/s RVOT VTI 0.146 m PV Mean Grad 1.3 mmHg RVOT Mean Gr. 1.0 mmHg Tricuspid Valve RA Pressure 8.00 mmHg TR Vmax 3.06 m/s TV S' 0.10 m/s TR Peak Grad 37.4 mmHg RVSP (TR) 45.5 mmHg
== END 2024-03-26 02:13 ==
LOC: DI 01:53
PROVIDERS: PCP Nurse Practitioner Family; Visit Provider Nurse Practitioner Family
DX: I48.91 Unspecified atrial fibrillation (principal)
CPT/HCPCS: 93306

== ENCOUNTER 2024-04-08 08:39 | Outpatient (CLI) | payer MEDICARE, SELFPAY ==
--- NOTE | 2024-04-08 08:30 | RT.EKG_ITS ---
APPROVED REPORT Exam: Resting ECG Reason for Exam: a meeta Patient Location: O HR:70 bpm ECG Measurements Heart Rate 70 AXIS [place] [id number] P [id number] QRSd 106 QRS 3 QT 419 T 36 QTc 453 Conclusion Atrial fibrillation...V-rate 58- 70, irreg A-activity Low voltage, RSR' in V1 or V2, probably normal variant...small R' only
== END 2024-04-08 08:40 | disposition home or self-care (01) ==
LOC: DI.CARD 08:40
PROVIDERS: PCP Nurse Practitioner Family; Visit Provider Internal Medicine Cardiovascular Disease
DX: I48.91 Unspecified atrial fibrillation (principal)
CPT/HCPCS: 93010

== ENCOUNTER → 2024-04-08 12:33 | Outpatient (BNVA) | payer MEDICARE, SELFPAY | PROVIDERS: PCP Nurse Practitioner Family; Referring Provider Nurse Practitioner Family; Visit Provider Internal Medicine Cardiovascular Disease | DX: I48.19 Other persistent atrial fibrillation (principal); R94.31 Abnormal electrocardiogram [ECG] [EKG]; I73.9 Peripheral vascular disease, unspecified; T84.038D Mechanical loosening of other internal prosthetic joint, subsequent encounter; Z96.652 Presence of left artificial knee joint | CPT/HCPCS: 93005; 99214 ==

== ENCOUNTER 2024-06-04 11:48 | Inpatient (IN) | payer MEDICARE, SELFPAY ==
[2024-06-04] VITALS (24 sets, daily range): BP systolic 88–144; BP diastolic 49–88; PULSE 70–113; RESP 14–27; TEMP 36.3–36.6; O2SAT 95–99; BMI 29.1
--- NOTE | 2024-06-04 | DI.RAD_ITS ---
Exam(s) XR KNEE LT 2V AP,LAT EXAM: XR KNEE LT 2V AP,LAT CLINICAL HISTORY: s/p revision L TKA. TECHNIQUE: 2D digital imaging was performed. COMPARISON: CR XR KNEE LT 3V AP,LAT,BEN from 08/27/2023 FINDINGS: 2 views performed postoperatively There is normal position alignment of the femoral and tibial components of the newly placed revision prosthesis. No fracture or loosening evident. IMPRESSION: Satisfactory postop appearance of the revision prosthesis components. DATA REPOSITORY: RADIATION DOSE DELIVERED:
[2024-06-04] MEDS: Lactated Ringers 1,000 ML 80 ML IV (12:27)
[2024-06-04] MEDS: Acetaminophen 500 MG TAB 1000 MG PO ×3 (12:28→21:14)
[2024-06-04] MEDS: Gabapentin 300 MG CAP PO ×3 (12:28→21:14)
[2024-06-04] MEDS: Celecoxib 200 MG CAP 400 MG PO (12:28)
--- NOTE | 2024-06-04 12:40 | W.ANESPRE ---
General Info Date of Service Date Performed: 06/04/24 Height: 5 ft 2 in Weight: 72.2 kg Body Mass Index (BMI): 29.1 Surgical Procedure: Operation Date: 06/04/24 13:10 Proposed Procedure Side Surgeon p Knee Total Revision Left Davide Basurto MD Meds Allergies and Home Medications Allergies Allergy/AdvReac Type Severity Reaction Status Date / Time No Known Allergies Allergy Verified 06/04/24 12:22 Home Medication ?Medication ?Instructions ?Recorded amitriptyline 50 mg tablet 50 mg PO HS 05/11/15 atorvastatin 40 mg tablet 40 mg PO DAILY 05/11/15 lisinopril 20 mg tablet 20 mg PO DAILY 05/11/15 multivitamin 1 tab PO DAILY 05/11/15 ferrous sulfate 325 mg (65 mg 325 mg PO DAILY 05/18/23 iron) tablet vitamin E (dl, acetate) 45 mg (100 45 mg PO DAILY 08/27/23 unit) capsule ascorbate calcium (vitamin C) 500 500 mg PO DAILY 03/10/24 mg tablet calcipotriene 0.005 % topical 1 applic topical BID 03/12/24 ointment fluorouracil 0.5 % topical cream 1 applic topical DAILY 03/12/24 meclizine 25 mg tablet 25 mg PO BID PRN 03/12/24 metoprolol tartrate 25 mg tablet 25 mg PO BID 03/12/24 rivaroxaban 20 mg tablet (Xarelto) 20 mg PO DAILY 04/08/24 celecoxib 200 mg capsule (Celebrex) 200 mg PO DAILY #30 caps 05/07/24 Current Visit Medications: Current Medications Generic Name Dose Route Start Last Admin Trade Name Divina PRN Reason Stop Dose Admin Acetaminophen 1,000 mg 06/04/24 06:00 06/04/24 12:28 Acetaminophen 500 Mg Tab PO 06/04/24 23:59 1,000 mg PREOP ROBERT Administration Celecoxib 400 mg 06/04/24 06:00 06/04/24 12:28 Celecoxib 200 Mg Cap PO 06/04/24 23:59 400 mg PREOP ROBERT Administration Gabapentin 300 mg 06/04/24 06:00 06/04/24 12:28 Gabapentin 300 Mg Cap PO 06/04/24 23:59 300 mg PREOP ROBERT Administration Ringer's Solution 1,000 mls @ 80 mls/hr 06/04/24 06:00 06/04/24 12:27 IV 01/29/25 23:59 80 mls/hr INFUSION ROBERT Administration Cefazolin Sodium/Dextrose 2 gm in 50 mls @ 100 mls/hr 06/04/24 06:00 Ancef Duplex IVPB 06/04/24 23:59 PREOP ROBERT Tranexamic Acid/Sodium Chloride 1,000 mg in 100 mls @ 600 mls/hr 06/04/24 06:00 IVPB 06/04/24 23:59 PREOP ROBERT IV Miscellaneous Supplies 1 each 06/04/24 06:00 Iv Access IV 06/04/24 23:59 DIRECTED ROBERT Sodium Chloride 0 ml 06/04/24 06:00 Normal Saline Flush 10 Ml Syr IV 06/04/24 23:59 PRN PRN Sodium Chloride 0 ml 06/04/24 06:00 Normal Saline 10 Ml Vial IJ 06/04/24 23:59 DIRECTED PRN Sterile Water 0 ml 06/04/24 06:00 Water,Injection,Sterile 10 Ml Vial IJ 06/04/24 23:59 DIRECTED PRN PFSH Active Problems Active Problems: Problem Status Onset Code Atrial fibrillation Chronic I48.91 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, 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 Acute T84.038A, Z96.659 Instability of internal right knee prosthesis Acute T84.022A Painful total knee replacement, right Acute T84.84XA, Z96.651 Painful total knee replacement, left Acute T84.84XA, Z96.652 Eczematoid otitis externa Acute H60.549 Actinic keratosis Acute L57.0 Medical History Medical History 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) Conductive hearing loss, external ear (07/15/15) Premature atrial contractions Dyspnea Irregular heart rate Fatigue Degenerative joint disease Decreased hearing Eczema Insomnia HTN (hypertension) Peripheral vascular disease Diverticulosis Osteoporosis Tobacco Smoking/Tobacco Use Status: Never Alcohol Alcohol Intake: current Alcohol intake frequency: holidays/special occasions only Substance Use Substance use: Never Substance use type: does not use Vital Signs and Lab Results Vital Signs Most Recent Vital Signs in EMR: Most Recent Vital Signs Temp Pulse Resp BP Pulse Ox 36.3 C L 78 17 122/88 95 06/04/24 11:56 06/04/24 11:56 06/04/24 11:56 06/04/24 11:56 06/04/24 11:56 Lab Results Blood Type / Crossmatch: No Data to Display Complete Blood Count: No Data to Display Complete Metabolic Panel: No Data to Display Liver Function Panel: No Data to Display Coagulation Panel: No Data to Display Cardiac Panel: No Data to Display Arterial Blood Gas: No Data to Display Venous Blood Gas: No Data to Display Pancreas Panel: No Data to Display Thyroid Panel: No Data to Display Infectious Disease: No Data to Display Blood Cultures: No Data to Display Toxicology Panel: No Data to Display Anesthesia Assessment and Plan Anesthesia History Personal History: No History of Anesthesia Complications Family History: No Family History of Anesthesia Complications Exercise Tolerance Exercise Tolerance: Metabolic Equivalents>4 Pertinent Negatives Pertinent Negatives: No Symptoms of GERD Cardiac & Pulmonary Exam Cardiac Exam: Normal S1/S2 Heart Sounds Pulmonary Exam: Clear Bilateral Breath Sounds Implantable Cardiac Device Does patient have a Pacemaker or an ICD?: No Airway Exam Known Difficult Airway: No Mallampati Class: 2 Mouth Opening: Normal (> 3cm) Thyromental Distance: Greater than 3 cm Neck Range of Motion: Full ROM Neck Circumference: Normal Teeth Condition: Normal Dentition ASA Classification ASA Score: ASA 3 Emergency Case?: No NPO Status NPO Status: NPO Clears >2 hours, Solids >8 hours Anesthesia Plan Resuscitation Status: Full Code Anesthesia Technique: Spinal Anesthesia Airway Planned: Natural Airway Pain Management: Surgeon and patient request nerve block Monitors Used: Standard Monitors
--- NOTE | 2024-06-04 13:22 | HPE_ITS ---
Assessment and Plan Assessment and plan (1) Aseptic loosening of prosthetic knee: Status: Acute Assessment and plan: Jenn is a 78-year-old female who has ongoing pain about the left knee primarily after bilateral knee replacements performed 18 years ago. She has prosthetic loosening and is here today for revision knee replacement. Her previous surgery was postponed due to the new onset of atrial fibrillation. She is been cleared by her primary doctor as well as cardiology. She does have history of vascular surgery for which she is also cleared. At this point she wants to proceed with her revision left knee replacement. I reviewed the tentacle details of the surgery. I discussed the risk to include bleeding, infection, pain, stiffness, loosening, fracture, damage nerves and vessels, damage to muscle and tendons, clot, cardiopulmonary demise or dysfunction due to surgery, need for repeat procedures. Despite these risk, she elects to proceed. History of Present Illness Narrative: Jenn is a 78-year-old female who has ongoing pain about the left knee. She is status post bilateral knee replacements about 18 years ago. Workup previously document in the office notes details a likely loose prosthesis on the left side. This fits with her history of ongoing pain. She also has a significant vascular history. She has had previous vascular surgery about the left leg with chronic low ABIs. She has been seen by vascular surgery and cleared for any surgery on the left leg without the use of any other vascular intervention. Prior to starting the previous case in the fall she developed new onset atrial fibrillation. This has been evaluated by her primary care provider as well as cardiology and she is cleared for surgery. She denies any new symptoms. No chest pain or shortness of breath. 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) Conductive hearing loss, external ear (07/15/15) Premature atrial contractions Dyspnea Irregular heart rate Fatigue Degenerative joint disease Decreased hearing Eczema Insomnia HTN (hypertension) Peripheral vascular disease Diverticulosis Osteoporosis Family History Mother Heart disease dies of [place] at age 78 Father Heart failure of HR age 56 Diabetes Heart disease Brother Heart disease cardiac stent Social History Smoking/Tobacco Use Status: Never Smoking risk assessment performed?: Yes Alcohol Intake: current Alcohol Intake frequency: holidays/special occasions only Drug use: Never Substance use type: does not use Household members: spouse Housing: house 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[employer], 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 What is your relationship status?: Panel score (0-1 are the most socially isolated patients): 1 Do you feel safe at home: Yes Do you feel safe in your relationship?: Yes Meds Allergies and Home Medications Allergies Allergy/AdvReac Type Severity Reaction Status Date / Time No Known Allergies Allergy Verified 06/04/24 12:22 Home Medications ?Medication ?Instructions ?Recorded ?Confirmed ?Type amitriptyline 50 mg tablet 50 mg PO HS 05/11/15 06/04/24 History atorvastatin 40 mg tablet 40 mg PO DAILY 05/11/15 06/04/24 History lisinopril 20 mg tablet 20 mg PO DAILY 05/11/15 06/04/24 History multivitamin 1 tab PO DAILY 05/11/15 06/04/24 History ferrous sulfate 325 mg (65 mg 325 mg PO DAILY 05/18/23 06/03/24 History iron) tablet vitamin E (dl, acetate) 45 mg (100 45 mg PO DAILY 08/27/23 06/03/24 History unit) capsule ascorbate calcium (vitamin C) 500 500 mg PO DAILY 03/10/24 06/04/24 History mg tablet calcipotriene 0.005 % topical 1 applic topical BID 03/12/24 06/03/24 History ointment fluorouracil 0.5 % topical cream 1 applic topical DAILY 03/12/24 06/03/24 History meclizine 25 mg tablet 25 mg PO BID PRN 03/12/24 06/04/24 History metoprolol tartrate 25 mg tablet 25 mg PO BID 03/12/24 06/04/24 History rivaroxaban 20 mg tablet (Xarelto) 20 mg PO DAILY 04/08/24 06/03/24 History celecoxib 200 mg capsule (Celebrex) 200 mg PO DAILY #30 caps 05/07/24 06/04/24 Rx Exam Const General: cooperative, healthy appearing, comfortable and no acute distress Resp Effort & Inspection: normal respiratory effort Auscultation: clear to auscultation bilaterally Cardio Rate: regular rate Rhythm: abnormal rhythm Extrem Other: Evaluation the left leg shows previously well-healed incision. No signs of cyanosis or other vascular insufficiency. Range of motion is approximate 5 to 115 degrees. Sensation intact to light touch or the deep and superficial peroneal nerve and tibial nerve. Foot is warm and well-perfused. Results Last Vital Signs Temp 36.3 C L 06/04/24 11:56 Pulse 78 06/04/24 11:56 Resp 17 06/04/24 11:56 BP 122/88 06/04/24 11:56 Pulse Ox 95 06/04/24 11:56
[2024-06-04] MEDS: ceFAZolin 2 GM/50 ML BAG IVPB (14:00)
[2024-06-04] MEDS: TRANEXAMIC ACID/SOD. CHL. 1,000 MG/100 ML BAG 600 MG IVPB (14:12)
--- NOTE | 2024-06-04 14:28 | W.ANESNERVE ---
Nerve Block Single Injection Procedure Date and Time Date Performed: 06/04/24 Procedure Start: 13:28 Location Where Procedure Performed Procedure Location: Day Surgery Unit Reason Performed: Postoperative Analgesia Requesting Provider: Davide Basurto Timeout Performed Timeout Performed: Yes Monitoring Used ECG, Blood Pressure, SpO2, ETCO2 and See EMR for corresponding vital signs Sterility Sterility: Hand Hygiene, Surgical Cap, Surgical Mask, Sterile Gloves, Eye Protection and Chlorhexidine Sedation Given During Procedure Sedation Given (Indicate Dose Given): Versed IV Dose:: 2mg IVP Patient Mental Status Patient Mental Status: Sedate with meaningful communication Nerve Block 1st Nerve Block: Laterality: Left Block Type: Adductor Canal Ultrasound Image Saved?: Yes Needle / Catheter Used: 100mm SonoPlex II Local Anesthetic Bolus (Indicate Dose Given): Lidocaine used for local infiltration of skin, Injected in 3-5ml increments after negative blood aspiration and Ropivacaine 0.5% Dose:: 0.5%.20cc (100mg) Additives (Indicate Dose Given): Epinephrine to make 1:200,000 (5mcg/ml) Dose:: 100mcg and Decadron Dose:: 10mg PF Ultrasound: Sterile probe cover and gel used Nerve Stimulator: Not Used Paresthesia: None Procedure Tolerated: No Complications and Patient tolerated well Procedure Outcome: Successful Performed By: Michoacano Solis
--- NOTE | 2024-06-04 18:15 | W.PM.OP ---
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) PROCEDURE: Revision Total Knee Replacement - LEFT SURGEON: Davide Basurto [employer] REPAIR INSTRUCTOR: Mireille Jane ANESTHESIA TYPE: Spinal Refer to Anesthesia Record ESTIMATED BLOOD LOSS: 500 PATHOLOGY: none sent COMPLICATIONS: None Patient was transported to: PACU Patient's condition: stable Implants: TIBIA: Depuy Attune Revision Tibial Tray, Size 4 - 16x60 Cementless Tibial Stem - Partially Coated Cementless Sleeve, 35mm FEMUR: Depuy Attune Revision CRS Femoral Component, Size 5 - [id number] Cementless Femoral Stem - Cementless Sleeve, 41mm - 4mm Distal Augments, Medial and Lateral - 8mm Posterior Femoral Augments, Medial and Lateral POLY: Depuy Attune CRS Rotating Platform, 6x16mm Depuy Attune 35mm Patella Indications: I have seen Jenn in clinic for symptoms of ongoing knee pain in the setting of previous bilateral knee replacements performed at [facility] almost 18 years ago. She has had a thorough workup which showed concerns for loosening of the components with a negative infection workup. Therefore, I recommended a knee revision. I discussed the technical details of a revision knee replacement. I explained the risks of the procedure to include, but not limited to, bleeding, infection, pain, stiffness, fracture, damage to nerves and vessels, damage to muscles and tendons, loosening, need for repeat procedure, blood clot and cardiopulmonary demise. Despite these risks, Jenn elected to proceed. Findings: There was a notable white villonodular synovitis throughout the knee, consistent with polyethylene debris synovitis. The tibia was grossly loose. There is some bone loss around the posterior medial aspect of the tibia and some apparent subsidence or bony overgrowth around the tibia. The femur is also minimally adherent only at the anterior chamfer and distal femur. There was abundant bone loss posteriorly with large pocket of synovitis in the bone. Procedure Description: Jenn was greeted in the preoperative holding area where the correct side was identified and marked. The consent was reviewed with the patient and signed. The history and physical was updated. All questions were answered. Preoperative medications were administered: Acetaminophen 1000mg, Celebrex 400mg, and Gabapentin 300mg. An adductor canal block was then administered by the anesthesia team in the DSU. Jenn was taken back to the operating room. A spinal anesthestic was then administered. The patient was placed into the supine position on the operating room table. A nonsterile tourniquet was placed high onto the leg. Posts were placed for positioning during the procedure. All bony prominences were well padded. Prophylactic antibiotics in the form of Cefazolin were administered. 1g of Tranxemic Acid was given intravenously within 30 minutes of incision. The left leg was then prepped with Chloraprep and draped in a standard fashion with impervious stockinette. A second prep with Chloraprep was performed prior to application of Iodine impregnated skin protection. A timeout to confirm correct identity, side and site, procedure, allergies, anesthesia, and medical concerns was performed. With the knee in some flexion, the previous midline incision was made overlying the knee. Full thickness skin flaps were raised once the extensor mechanism was encountered. These were raised medially and laterally in a full thickness fashion. Any bleeding was controlled with electrocautery. Once the extensor mechanism was fully exposed, a medial parapatellar arthrotomy was performed in a flexed position. All bleeding from the arthrotomy and the geniculate arteries was coagulated. There was notable mostly white-colored with some gomez components villonodular synovitis throughout the knee consistent with polyethylene debris synovitis. An aggressive complete synovectomy was then performed superiorly, medially, and laterally. Scarring from the fat pad and a portion of the fat pad was removed as well. The knee was then flexed up and the previous polyethylene was removed. Attention was then turned to removal of the previous implants. Starting with the femur the interface between the bone and the implant was identified. Utilizing flexible osteotomes I went around the entirety of the femoral component to remove any remaining attachments of the component to the underlying bone. This was done sequentially in a stepwise fashion throughout. There was only any billingsley at the distal femur and anterior chamfer. There was no significant bone at the posterior chamfer and posterior cut. Then utilizing a bone tamp on the end of the implant as well as anteriorly, was able to remove the femoral component with no significant bone loss. The bone and release this was inspected. Any remnant cement was removed from the femoral surface utilizing a rongeur. Then, attention was turned to the tibia. Once again, utilizing a set of flexible osteotomes I worked on the tibial component from the underlying bone. This component was completely loose. Utilizing a bone tamp from under the lip of the tibia I was able to remove the tibial component. Once again, this was inspected and showed no significant signs of bone loss or fracture. There was bone loss posteromedially. In addition, there was more bone in the posterior aspect of the tibia as if the component had subsided or potentially overgrown around the component there. The fibular head was also visible. Cement was then removed from the proximal tibia utilizing a small straight osteotome. Small cruciate bowles were made and the cement and the cement was removed from the bone trying to disturb his little bone as possible underneath the cement. This is also taken down into the canal where the osteotome was utilized to break through the distal plug of cement which was removed. Utilizing curved osteotomes as well as curettes, was able to remove the remaining cement from the proximal tibia. A posterior synovectomy was also performed for better visualization. Any remnant inflamed synovium and necrotic tissue was debrided fully. Starting with the tibia, the tibial canal was reamed by hand. This was taken up until there is adequate cortical engagement. The reamer was left in place, taken down to an appropriate depth based on the planned construct. This appeared to have appropriate positioning. I then utilized the broaching system to broach for a cementless sleeve. This was done up to a size 16mm. The broach was taken just below the cut surface of the tibia and left in place. The proximal aspect of the tibia was then cut in plane with the broach surface. Peripheral soft tissues were protected with appropriate retractors. The broach was removed and the trial component was placed. The tibial tray was rotated to the medial one third of the tibial tubercle and locked into position. Attention was turned to the femur where the femoral canal was reamed by hand as well. This was ensured to be starting in a central slightly posterior position to avoid anterior notching. This was taken up to a size 16mm reamer. Initial plan was to distalize the femur and this was accounted for during the reaming and broaching process for appropriate joint line. A freshening cut was made over the distal aspect of the femur removing no more than 2 mm of bone for a fresh, flat distal femur surface. Broaching was then performed by hand. This was taken up until there was rotational and axial control of the broach. This was left in position and the distal cutting device was attached. Extension and flexion gaps were then assessed. Rotation of the femoral component was set with the tibia in 90 degrees. The posterior cuts were then assessed. This showed significant defects posteriorly. 8mm augments would allow some contact to posterior bone although there was a shell of cortex extending medially and laterally which was left in place. The anterior and posterior chamfers were cut. The central portion of the jig was then removed and the notch was cut. Trial implants were then inserted. The knee was taken through range of motion. This showed stability with a 16mm polyethylene insert. The trial femur was removed. The distal aspect of the femur was reamed with an 18 mm reamer to account for the size of the femoral boss. The tibia was punched to make room for the keel. The trial tibial implant was removed. The knee was then brought into extension to address the patella. The patella button had large sections missing with delaminated and fractured polyethylene. Therefore, I proceeded with resecting the patella to a flat surface to remove the previous patella. There were projections of irregular bone superiorly and inferiorly which were largely left in place as they had tendinous attachments. I was able to resect the patella to about 13 mm. The size 35mm patella fit the best. This was oriented and then clamped into position. The lugs were drilled. The final components, except for the polyethylene were opened on the back table. The periosteal and capsular tissues, especially posteriorly, around the knee were then systematically injected with a periarticular cocktail consisting of 246mg of Ropivacaine, 0.5mg of Epinephrine, 0.08mg of Clonidine, and 30mg of Ketorolac, diluted to 100cc.. The tourniquet was then inflated to 275mmHg. The knee was thoroughly irrigated with a pulse lavage and dried. On the back table, the implants were opened. They were assembled matching the rotation and position of the trial implants on the final components. They are prepared according to [employer] global product leadership recommendations. Now with the implants opened, the cement was mixed. 2 batches of medium viscosity cement were prepared with vacuum assistance. After the cement was ready a small amount was placed on to the back side of the tibial component making sure to not get any cement on the sleeve. Similarly, cement was placed onto the backside of the femoral component. Starting with the tibia, the tibia was fully exposed and the stem was inserted and the sleeve was aligned. Once it appeared to be appropriately oriented, it was impacted into position. The seem to rest completely on the cut tibial surface. Excess cement was removed. It was ensured to be down against the cut surface. Next, cement was manually impacted onto the cut surface of the distal femur. The femoral component was then inserted utilizing the femoral component for rotational control. This was impacted into position. Excess cement was removed. The trial polyethylene was then inserted and the leg was brought out into full extension for the duration of the cement curing process, approximately 18min. Cement was lastly manually impacted into the cut surface of the patella and the patellar button was clamped into position and held. During this process attention was turned to the gutters of the knee and for all interfaces for any excess cement. While the cement was hardening, the knee was irrigated with Surgiphor betadine solution. This was allowed to sit in the knee for 3 minutes and then it was thoroughly irrigated with saline. After the cement had finally cured, approximately 18min, the clamp was removed from the patella and the knee was taken through range of motion. A size 16 polyethylene component provided the best range of motion and stability with less than 2mm gapping with medial and lateral stress and full extension without significant hyperextension. The patella was tracking with a no-thumbs technique. The trial poly was removed and once again the knee was checked for any loose, excess, or errant cement. The poly component was then inserted into position after cleaning and drying the tibial tray. The capsule was then reapproximated with a No. 2 Fiberwire and No. 1 Vicryl at multiple locations. The capsule was finally closed with a No. 2 Stratafix, barbed suture. The tourniquet was then released and the arthrotomy appeared watertight without significant bleeding. Deep tissues were then reapproximated with 0 Vicryl and 2-0 Monocryl. The skin was closed with a running 3-0 Monocryl in a subcuticular fashion. This was reinforced with skin glue. A Mepilex silver dressing was applied along with a [id number] SABRINA wrap. A CryoCuff was applied. Jenn was transferred to the hospital bed without difficulty an suffering no apparent complication. Jenn has a good prognosis. Physical therapy will start today and without restrictions, weight-bearing as tolerated. Her home dose of Xarelto 20mg daily will be used for DVT prophylaxis. Date of Procedure: 06/04/24
--- NOTE | 2024-06-04 18:43 | W.ANESPOSTOP ---
Postoperative Evaluation Date, Time and Location Date Performed: 06/04/24 Time Performed: 18:43 Patient Location: PACU Vital Signs Most Recent Imported Vital Signs: Most Recent Vital Signs Temp Pulse Resp BP Pulse Ox 36.4 C L 74 21 88/57 L 96 06/04/24 18:29 06/04/24 18:31 06/04/24 18:31 06/04/24 18:31 06/04/24 18:31 Pain Score Most Recent Pain Score: Most Recent Pain Score Pain Level 0 06/04/24 11:56 Assessment Mental Status: Arousable with meaningful communication Airway and Respiratory Function: Patent airway with normal (patient baseline) respiratory exam Cardiovascular Function: Hemodynamically Stable Hydration Status: Adequately Hydrated Nausea & Vomiting: No Nausea or Vomiting Pain: Pain is tolerable per patient Peripheral Nerve Block: Regional nerve block not resolved at time of post operative discharge
[2024-06-04] MEDS: Rivaroxaban 10 MG TABLET 20 MG PO (20:05)
[2024-06-04] MEDS: Metoprolol 12.5 MG TAB 25 MG PO (20:05)
[2024-06-04] MEDS: Amitriptyline 50 MG TAB PO (20:06)
[2024-06-04] MEDS: Atorvastatin 40 MG TAB PO (20:06)
[2024-06-04] MEDS: Celecoxib 200 MG CAP PO (20:08)
[2024-06-04] MEDS: Tranexamic Acid 650 MG TAB 1300 MG PO (20:08)
[2024-06-04] MEDS: ceFAZolin 1 GM/50 ML BAG IVPB (21:14)
[2024-06-05] VITALS (13 sets, daily range): BP systolic 88–112; BP diastolic 48–85; PULSE 72–103; RESP 16–20; TEMP 36.1–37.1; O2SAT 92–99
[2024-06-05] MEDS: ceFAZolin 1 GM/50 ML BAG IVPB ×2 (05:19→14:20)
[2024-06-05 06:05] LABS: HCT 31.2 % (36.0-46.0); HGB 10.2 g/dL (11.2-15.7); MCH 32.6 pg (27.0-33.0); MCHC 32.7 % (32.0-36.0); MCV 100 fL (80-95); MPV 10.7 fL (8.0-11.0); Platelet Count 218 10^3/uL (130-400); RBC 3.13 10^6/uL (3.93-5.22); RDW 13.7 % (11.7-14.6); RDW-SD 49.4 fL; WBC 13.43 10^3/uL (4.4-10.8)
[2024-06-05 06:20] LABS: Anion Gap 9.8 mmol/L (3-11); BUN 17 mg/dL (7-18); CO2 24.2 mmol/L (21.0-32.0); CREATININE 1.2 mg/dL (0.55-1.02); Calcium 8.6 mg/dL (8.5-10.1); Chloride 105 mmol/L (98-107); Estimated GFR 46.05 (mL/min/1.73m2); Glucose 149 mg/dL (74-106); Potassium 4.4 mmol/L (3.5-5.1); Sodium 139 mmol/L (136-145)
[2024-06-05] MEDS: Normal Saline 500 ML IV (08:59)
[2024-06-05] MEDS: Acetaminophen 500 MG TAB 1000 MG PO ×3 (09:08→20:23)
[2024-06-05] MEDS: Ascorbic Acid 500 MG TAB PO (09:09)
[2024-06-05] MEDS: Ferrous Sulfate 325 MG TAB PO (09:09)
[2024-06-05] MEDS: Multivitamin TAB 1 TAB PO (09:09)
[2024-06-05] MEDS: Celecoxib 200 MG CAP PO (09:09)
[2024-06-05] MEDS: Dexamethasone 4 MG TAB PO (09:10)
[2024-06-05] MEDS: Pantoprazole 40 MG TABCR PO (09:10)
--- NOTE | 2024-06-05 13:51 | INITIAL_ITS ---
Date of service: 06/05/24 Time of Service: 11:45 Care Management Initial Assmt Initial Assessment Reason for Hospitalization: revision of left total knee replacement Functional Status/Living Situation Patient Presentation: Jenn had bilateral knee replacements 18y ago. She has been having pain in her left knee for years and had a revision of the left knee yesterday. Today she was dizzy with ambulation, and was found to have a decrease in her Hct requiring 1u PRBC. Jenn was sitting up in the bedside chair when CM met with her today. Her 2 daughters, Lubna and Marisol, were visiting. All 3 were very pleasant. Jenn stated that she really couldn't work with PT today because she was too tired and got dizzy. 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) Instrumental Activities of Daily Living (ADLs): Independent Physical Functioning/Mobility Assistive Device: using a walker now due to surgery, but usually has no assistive device Advance Directives Advance Directives: Do you have an Advance Directive: Y 04/11/24 13:50 AD On File at [facility]: N 04/11/24 13:50 Date Asked 03/13/24 04/11/24 13:50 AD Date Reviewed COLST On File at [facility] COLST Date Scanned Code Status Resuscitation Status Full Code Insurance Coverage/Financial Issues Insurance: Medicare A&B [employer] Life MCR supplement Financial Issues: denies Care Team Visit Care Team Role Provider Type NICCI DUMONT NP Primary Care Provider NON-[facility] STAFF PHYSICIAN InPatient [facility] Other Providers OTHER Davide Basurto MD Admit Provider [facility] STAFF PHYSICIAN Attending Provider Discharge Potential Discharge Needs: PCP F/U Appt and Surgical F/U Appt Anticipated Barriers to Discharge: None Identified Patient/Family Education Needs: Review discharge instructions, discuss Ask Me Three Transportation: Private vehicle Plan: Anticipate that Jenn will be discharged tomorrow with new services for PT until she is able to begin her outpatient PT in 2 weeks (already scheduled). She will f/u with the surgeon and continue per her prescribed plan of care. Thea smith will discharge home in a private vehicle. CM will continue to follow. 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) Conductive hearing loss, external ear (07/15/15) Premature atrial contractions Dyspnea Irregular heart rate Fatigue Degenerative joint disease Decreased hearing Eczema Insomnia HTN (hypertension) Peripheral vascular disease Diverticulosis Osteoporosis Family History Mother Heart disease dies of VT at age 78 Father Heart failure of HR age 56 Diabetes Heart disease Brother Heart disease cardiac stent Social History Smoking/Tobacco Use Status: Never Smoking risk assessment performed?: Yes Alcohol Intake: current Alcohol Intake frequency: holidays/special occasions only Drug use: Never Substance use type: does not use Household members: spouse Housing: house 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
--- NOTE | 2024-06-05 14:38 | IN_ITS ---
PT Notes Visit Reasons: Loose knee prosthesis - LEFT Physical Therapy Inpatient Initial Evaluation Date: 06/05/2024 Referring Doctor: Dr Basurto PT Orders: PT CONSULT: s/p Ortho surgery Precautions: WBAT LLE Patient Profile/Admitting Diagnosis: Pt is 78 yo female presenting s/p elective revision of left TKA. under general anesthesia. Pt admitted to Med Surg unit for further medical management . Pt with lightheadedness and tachycardia required bolus IV fluids prior to PT evaluation this am. 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 Pt stays on 1st floor . her had back surgery 6 mos ago and she assists him. Pt independent without device ambulation , ADL, cooking, driving. Pt performs stairs with step to pattern d/t impaired ROM left knee Equipment Owned/DME: FWW, crutches, cane, elevated toilet height Subjective: Pt reports she feels well and would like to get out of bed. Pt reported lightheadedness with transitions and heart racing during ambulation ( nursing aware see vitals) Objective: [] General Observation: female presenting semireclined in bed with cryocuff to left knee, dtr and Nurse in room Mental Status: A+ Ox 4, impulsive, easily distracted needing cues to attend to task, some repetitive speech, word finding deficits, agreeable to participate Pain: left knee 2/10 Vitals supine: 98/48 72 sit : 98/63 95 stand unable to assess but upon sitting 112/58 115 ROM: [] Right Upper Extremity: WNL Left Upper Extremity: WNL Right Lower Extremity: WFL Left Lower Extremity:WNL except knee 5-95 degreesAAROM Strength: [] Right Upper Extremity:4/5 Left Upper Extremity: 4/5 Right Lower Extremity: 4/5 Left Lower Extremity: Hip flexion: 2+/5; hip abduction:2+/5; hip extension: 3- /5; knee extension: 3 /5; knee flexion: 2+ /5 ankle DF: 3 /5 ; ankle PF:3 /5; Pt demonstrates quad set and SLR slight lag after 2 reps noted. Sensation: intact Bed Mobility/Transfers: [] Supine to sit SBA Sit to stand CGA and cues for Hand placement Stand to sit Min A and cues for hand placement Bed to chair min A with FWW Gait: ambulate with FWW min A 15 feet with w/c follow. Pt reported lightheadedness and racing heart. Pt demonstrates the following deviation, impaired step length , increased knee flexion left at mid stance, increased weight shift to right to unweight LLE, knee instability at midstance Left, absent heel strike left. early heel off Balance: [] Static Sitting:Good Dynamic Sitting:Fair Static Standing: Fair Dynamic Standing: Fair - Special Tests: [] Mobility Limitations Standardized Measure [] [facility] AM-PAC 6 clicks Basic Mobility Inpatient Short Form: [] Raw Score: !8 CMS Score:46.58% Informed Consent/Education: Patient instructed in purpose of PT consult. Packet containing TKA exercise protocol has been given to patient. Education and training on initial set of exercises that can be done at home have been com pleted with patient. Assessment: Patient is a 78 yo female who presents with clinical signs and symptoms consistent with current/admitting diagnoses that have resulted to mobility limitations, gait instability, generalized weakness, and impairment of motor control as demonstrated by the following impairment level findings: 1. Decreased strength to left knee major muscle groups 2. Impaired standing balance 3. Limitation of joint range of motion in left knee 4. impaired standing activity tolerance 5. pain left knee Impairments are contributing to the following functional limitations: 1. Inability to safely ambulate without assistive device 2. Increase completion time for mobility ADL performance 3. Increased fall risk 4. inability to perform stairs safely without assistance 5. decline in functional transfer skills Patient is assessed as a moderate complexity based on the following: History: 78-year-old female with impairment level findings, functional limitations, and past medical history as indicated above Examination: Demonstrable impairment in strength, balance, and mobility level with underlying impairments and functional limitations as documented above Presentation: evolving Decision Making: moderate Goals: 1. Independent bed mobility 2. SBA transfers with FWW 3. SBA ambulation with FWW 150 feet level surfaces without increased pain 4. 2 steps with device and CGA to safely enter and exit home 5. Supervision with written HEP per TKA protocol Plan of Care/Treatment Plan: PT evaluation and 1-2 treatment session only for functional mobility training using recommended AD and for HEP instruction. DISCHARGE RECOMMENDATIONS: Home with HHPT when appropriate for discharge then scheduled outpatient PT TREATMENT CODE/TIME:02416, 14895, 06725 / [id number] Thank you for the opportunity to participate in the care of this patient. Patricia Ennis PT [facility]
--- NOTE | 2024-06-05 15:06 | PT.INTREAT ---
PT Notes Visit Reasons: Loose knee prosthesis - LEFT Inpatient Physical Therapy Treatment Note [facility] Date:06/05/2024 PRECAUTIONS:WBAT LLE, Monitor for lightheadedness SUBJECTIVE: Pt reports she is doing ok OBJECTIVE: pt presented reclined in chair with cryocuff to left knee and her 2 daughter visiting. She was moving slower/ less impulsive ? PAIN: 3 with exercises VITALS: ?HR 78-123bpm Therapeutic Activities (11760): Direct one-on-one instruction in dynamic activities to improve functional performance. ? BED MOBILITY/TRANSFERS? Rolling L/R: supervised ? Sit-supine: CGA for LLE? Sit-stand: CGA and cues for handplacement? Stand-sit:Min A for RW mgmt and cues for hand placement? Bed-Chair: min A FWW? Chair-bed: min A with FWW Provided skilled cues and instruction on performance and technique throughout. [] employing an assistive device [X] modified weight-bearing status [X] movement sequencing [X] turning and movement with proper form [] Provided verbal cues for equipment management and technique [X] Provided instruction in gait pattern [] Patient education regarding pacing and breathing techniques to maximize activity tolerance? GAIT? Assistive Device: FWW? Weight bearing: WBAT LLE Assist: Min A for Stability, FWW mgmt, and max cues for heelstrike and hold knee extension through mid stnace ? Distance:? 10 feet ? Deviation: [ antalgic pattern decreased step length , toe fist for weight acceptance unless cued. ? Therapeutic Exercises (96612): Direct one-on-one instruction in therapeutic exercises to develop strength, endurance, range of motion and flexibility. ? Exercises ? supine QS with 3 sec hold , SAQ, heelslides, SLR through shortened range 2 sets 5 reps seated LAQ, Ankle pumps , seated heelslides with towel on floor, 2 sets 5 reps Provided skilled instruction in proper exercise performance Provided skilled manual cues to facilitate proper muscle recruitment and/or form: use of towel roll for quad set and tactile facilitation to VM ASSESSMENT:? Pt continues to be limited by tachycardia and lightheadedness limiting her ability to perform functional mobility without heart racing sensation. MD and Nursing aware. Pt able to activate Quad set without compensation of gluts and hamstring when cued. Pt required education on importance of moving her leg to maximize outcome of this revision. Her daughters are supportive and will help to keep her engaged/motivated to perform HEP. PLAN: 1-2x/day, 7 days/week x 1 week.Plan of care has been reviewed with the INTERNET MARKETING MANAGER providing the service under Physical Therapy direction. Initiate Physical Therapy intervention for strengthening, bed mobility, transfers, gait, stairs, balance training, use of assistive device TREATMENT CODE/TIME:80545 x14 mins for 1 unit,87491q 25mins for 2 units/ [id number] DISCHARGE RECOMMENDATION: HHPT then outpatient PT as scheduled once appropriate for discharge
[2024-06-05] MEDS: Metoprolol 25 MG TAB PO ×2 (15:24→20:29)
[2024-06-05 16:03] LABS: HGB 8.7 g/dL (11.2-15.7)
[2024-06-05 16:15] LABS: Anion Gap 7.9 mmol/L (3-11); BUN 30 mg/dL (7-18); CO2 25.1 mmol/L (21.0-32.0); CREATININE 1.4 mg/dL (0.55-1.02); Calcium 8.3 mg/dL (8.5-10.1); Chloride 101 mmol/L (98-107); Estimated GFR 38.27 (mL/min/1.73m2); Glucose 163 mg/dL (74-106); Potassium 4.2 mmol/L (3.5-5.1); Sodium 134 mmol/L (136-145)
--- NOTE | 2024-06-05 17:21 | PGE_ITS ---
Date of Service Date of service: 06/05/24 Time of Service: 16:30 Assessment and Plan Assessment and plan (1) Acute blood loss anemia: Status: Acute Assessment and plan: Jenn remains symptomatic from her acute blood loss anemia. She did have a prolonged surgery with a significant mount of blood loss. The hemoglobin has now dropped to 8.7 from this morning of 10.2. Therefore, I recommend we proceed with a single unit transfusion. This should help out with her urine output and her symptomatic hypotension. (2) Atrial fibrillation: Status: Chronic Assessment and plan: Continue with metoprolol unless systolic blood pressures less than 90. This will help control her rate and keep her less symptomatic from her atrial fibrillation. Resume Xarelto. (3) Aseptic loosening of prosthetic knee: Status: Acute Assessment and plan: Postop day #1 status post revision of the left knee. This was a significantly challenging surgery given bone loss throughout the femur and section of the tibia. Postoperative x-rays show revision hardware in good position without signs of fracture or malpositioning. Examination is quite good today and I am h appy that she is doing well without pain. Physical therapy was limited due to the symptomatic anemia. Continue to weight-bear as tolerated. No positioning restrictions. Will stay the night tonight with a blood transfusion and continue to follow. Hopefully should be less than somatic tomorrow and can discharge to home with home health services. Subjective Subjective Interval history since last seen: Jenn overall is doing well from her revision left knee replacement yesterday. She denies any significant pain. However, she has had some lightheadedness. This is most notable when she was trying to ambulate physical therapy, limited to about 15 feet overall. She also felt her heart was racing some. Vital signs showed tachycardia into the upper 90s and low 100s. She did not get her baseline metoprolol due to some low blood pressure. Her morning labs showed a hemoglobin drop from 12.7 to 10.2. She also had some sluggish urine output. She was given fluid bolus and then was reevaluated in the afternoon. However, she continued to have lightheadedness. She denies any chest pain or shortness of breath. Exam Narrative Exam Narrative: Sitting up in the bed. No acute distress. Alert and orient x 3. Left lower extremity dressings clean dry and intact. He is able to straight leg raise. Sensation intact light touch over the deep and superficial peroneal nerve and tibial nerve. Some swelling throughout the left leg. Foot is warm and well-perfused with a palpable DP pulse. Objective Last Vital Signs Temp 36.3 C L 06/05/24 15:09 Pulse 90 06/05/24 15:09 Resp 20 06/05/24 15:09 BP 101/66 06/05/24 15:09 Pulse Ox 96 06/05/24 15:09 Laboratory Results - last 24 hr 06/05/24 06/05/24 06/05/24 05:52 15:50 16:57 WBC 13.43 H RBC 3.13 L Hgb 10.2 L 8.7 L Hct 31.2 L MCV 100 H MCH 32.6 MCHC 32.7 RDW 13.7 Plt Count 218 MPV 10.7 Sodium 139 134 L Potassium 4.4 4.2 Chloride 105 101 Carbon Dioxide 24.2 25.1 Anion Gap 9.8 7.9 BUN 17 30 H Creatinine 1.2 H 1.4 H Est GFR (CKD-EPI 2020) 46.05 38.27 Glucose 149 H 163 H Calcium 8.6 8.3 L Blood Type Recheck B Positive Crossmatch See Detail Time Spent with Patient Time Spent with Patient: 35-49 minutes Time was spent: preparing to see the patient(eg.review tests), obtaining and/or reviewing separately otained hiistory, ordering medications,tests, procedures, indepentently interpreting results and counseling the patient
[2024-06-05] MEDS: Rivaroxaban 10 MG TABLET 20 MG PO (17:28)
[2024-06-05] MEDS: diphenhydrAMINE 25 MG CAP PO (18:26)
[2024-06-05] MEDS: Amitriptyline 50 MG TAB PO (20:23)
[2024-06-05] MEDS: Gabapentin 300 MG CAP PO (20:24)
[2024-06-05] MEDS: Atorvastatin 40 MG TAB PO (20:24)
[2024-06-06 00:03] VITALS: BP 109/57; PULSE 77; RESP 20; TEMP 36.8; O2SAT 98
[2024-06-06 04:30] VITALS: BP 102/59; PULSE 74; RESP 16; TEMP 36.8; O2SAT 98
[2024-06-06 07:43] LABS: HCT 26.5 % (36.0-46.0); HGB 9.3 g/dL (11.2-15.7); MCHC 35.1 % (32.0-36.0); MCV 91 fL (80-95); MPV 11.8 fL (8.0-11.0); Platelet Count 169 10^3/uL (130-400); RBC 2.91 10^6/uL (3.93-5.22); RDW 14.3 % (11.7-14.6); RDW-SD 47.5 fL; WBC 8.32 10^3/uL (4.4-10.8)
[2024-06-06 07:56] LABS: Anion Gap 8.8 mmol/L (3-11); BUN 32 mg/dL (7-18); CO2 24.2 mmol/L (21.0-32.0); CREATININE 1.1 mg/dL (0.55-1.02); Calcium 8.5 mg/dL (8.5-10.1); Chloride 104 mmol/L (98-107); Estimated GFR 51.11 (mL/min/1.73m2); Glucose 109 mg/dL (74-106); Potassium 4.2 mmol/L (3.5-5.1); Sodium 137 mmol/L (136-145)
[2024-06-06] MEDS: Multivitamin TAB 1 TAB PO (09:03)
[2024-06-06] MEDS: Lisinopril 20 MG TAB PO (09:03)
[2024-06-06] MEDS: Pantoprazole 40 MG TABCR PO (09:03)
[2024-06-06] MEDS: Celecoxib 200 MG CAP PO (09:03)
[2024-06-06] MEDS: Metoprolol 25 MG TAB PO (09:03)
[2024-06-06] MEDS: Ascorbic Acid 500 MG TAB PO (09:04)
[2024-06-06] MEDS: Ferrous Sulfate 325 MG TAB PO (09:04)
[2024-06-06] MEDS: Acetaminophen 500 MG TAB 1000 MG PO (09:04)
--- NOTE | 2024-06-06 10:19 | W.PM.DS.N ---
Date of service: 06/06/24 Time of Service: 10:15 DS: Diagnosis Discharge Diagnosis (1) Aseptic loosening of prosthetic knee: Status: Acute (2) Acute blood loss anemia: Status: Acute Discharge Plan Disposition Patient Disposition: Home W/Home Health Services Condition: Stable Discharge Details Reason For Visit: Loose knee prosthesis - LEFT Admit Date/Time: 06/04/24 11:48 Admit Provider: Davide Basurto Attending Provider: Davide Basurto Primary Care Provider: NICCI DUMONT [facility] Course Hospital Course: Patient was admitted to the medical/surgical floor following the procedure. The surgery was tolerated well without any notable medical, surgical, or anesthetic complications. Mobilization began postoperatively. She was voiding spontaneously. She did have some relative hypotension and slight tachycardia in the setting of atrial fibrillation. When she tried to mobilize she did have some lightheadedness. Repeat hemoglobin showed a drop from 12.4 to 8.7 and thus she was transfused 1 unit packed red blood cells. After this transfusion her blood pressure responded appropriately. Her urine output also picked up. On postop day #2 she was able to mobilize with physical therapy. Vitals remained stable. Physical therapy worked with the patient and was cleared for discharge home with home health services. No acute medical issues. Pain was controlled on oral regimen. Home Meds and New Rx's Prescriptions: New acetaminophen 500 mg tablet 1,000 mg PO Q8H PRN (Reason: pain) Qty: 90 3RF celecoxib 200 mg capsule 200 mg PO BID PRN (Reason: pain) Qty: 60 1RF oxycodone 5 mg tablet 5 mg PO Q6H PRN (Reason: pain) Qty: 12 0RF Continued vitamin E (dl, acetate) 45 mg (100 unit) capsule 45 mg PO DAILY ascorbate calcium (vitamin C) 500 mg tablet 500 mg PO DAILY Xarelto 20 mg tablet 20 mg PO DAILY Rx Instructions: must administer with evening meal ferrous sulfate 325 mg (65 mg iron) tablet 325 mg PO DAILY metoprolol tartrate 25 mg tablet 25 mg PO BID Patient Comments: 03/12/24 PCP ordered for afib rate > 100 RH meclizine 25 mg tablet 25 mg PO BID PRN Patient Comments: per PCP records states 1-2 tablets as needed BID RH calcipotriene 0.005 % ointment 1 applic topical BID Patient Comments: 03/12/24 per PCP notes for psoriasis RH Rx Instructions: rub in gently and completely fluorouracil 0.5 % cream 1 applic topical DAILY Patient Comments: 03/12/24 per PCP notes no clear directions RH atorvastatin 40 MG tablet 40 mg PO DAILY lisinopril 20 MG tablet 20 mg PO DAILY amitriptyline 50 MG tablet 50 mg PO HS multivitamin 1 EACH capsule 1 tab PO DAILY Discontinued celecoxib [Celebrex] 200 mg capsule 200 mg PO DAILY Qty: 30 1RF Discharge Instructions Additional Instructions: Total Knee Discharge Instructions Activity: The most important activity is to walk and to work on gentle motion (both flexion and extension). You should try to take short walks a few times a day. It is important that when resting you work on keeping the knee straight. Avoid putting a pillow behind the knee as this will encourage flexion. Work on range of motion exercises as provided by Physical Therapy. - Start outpatient physical therapy within 2 weeks. - You should wear the SIMÓN hose on both legs for 2 weeks. You may remove these at night. You may also use any compression sock in place of the SIMÓN hose. - Utilize [employer] to review exercises, see videos on exercises and obtain basic information pertaining to your surgery and your recovery. Dressing: Remove the Rosendo wrap by 2 days after your surgery and put on the SIMÓN stocking given to you from the hospital. Keep the surgical dressing (underneath the ROSENDO wrap) in place for at least one week. After the first week it may be removed and replaced with light gauze and tape or nothing. The wound and dressing may get wet after 3 days but avoid soaking the dressing or otherwise it will need to be changed. Many people prefer covering the dressing with cling wrap (saran wrap) to minimize it from getting soaked. If it gets wet, just pat dry. If it starts to peel off then it will need to be changed. Medications: - You should take Tylenol and anti-inflammatory Celebrex as your primary pain control medications. If the Celebrex is too expensive or not covered, please call the office for another alternative (Advil/Ibuprofen or Naproxen/Aleve) - You have been prescribed a stronger pain medication Oxycodone for breakthrough pain, take as needed as prescribed. - You will continue with Xarelto for blood clot prevention. - If you have constipation you should take Colace or Miralax (both [id number]). It takes most people 3-4 days to have a bowel movement. Follow-up: 2 weeks If you have any acute concerns or questions, please do not hesitate to contact the office at [phone]. You may contact Dr. Basurto with any questions after hours through the hospital at [phone] or on his cell phone at [phone]. 1. Encounter Date and Reason I certify that Jenn Garcia was seen by Davide Basurto MD on 06/05/24 and that I had a [id number] encounter with this patient that meets the physician face to face encounter requirements. 2. Clinical Findings Supporting Skilled Need and Homebound Status I certify that home health services are medically necessary, include either intermittent longterm and/or physical/speech therapy, and that this patient is homebound in that absences from the home require considerable and taxing effort and are infrequent or of short duration, or are attributable to the need to receive medical care. [X] (a) Attached documentation from encounter provides clinical findings supporting skilled need and homebound status (including what assistance patient requires to leave the home). The encounter with the patient was in whole, or in part, for the following medical condition, which is the primary reason for home health care: Loose knee prosthesis - LEFT Snf: Physical Therapy: Jenn will benefit from home based occupational physical therapy as she recovers from a revision total knee arthroplasty on the left side. Initial treatment should focus on independent relation within her home utilizing assistive devices and gentle range of motion. Speech Therapy: Homebound: Due to weakness and gait abnormalities, Jenn is unable to leave her home unassisted. 3. Certification and Authentication I certify that I composed the above information based on my clinical judgement relating to this patient's medical condition and, if applicable, clinical findings communicated to me by the NPP or inpatient physician who performed the Home Health Referral. All further orders will be obtained through Dr. Basurto Referrals: Davide Basurto MD [ [facility] STAFF PHYSICIAN] - Activity:: Activity as Tolerated Equipment/Supplies:: Walker Diet:: As Tolerated Discharge Orders Discharge Orders: Discharge Order (Routine); Ordered 06/06/24 Ordered By: Davide Basurto DS: Summary Time Spent with Patient providing and/or coordinating discharge services: Greater than 30 minutes Status at Discharge Functional status at discharge: uses cane/walker Overall status at discharge: patient is progressing back to baseline Mental Status: mental status grossly normal Speech and Movement: speech and movement normal Mood: congruent mood Affect: normal affect Quality:SDOH Health Related Social Needs: No Data to Display Exam Narrative Exam Narrative: Examined in the bed but also observed ambulating. Left lower extremity dressings clean dry and intact. She is able to straight leg raise. She has intact ankle dorsiflexion, plantarflexion, eversion, inversion. Sensation intact to light touch over the deep and superficial peroneal nerve and tibial nerve. Foot is warm and well-perfused. Psych Mental Status: mental status grossly normal Speech and Movement: speech and movement normal Mood: congruent mood Affect: normal affect DS: Data Vitals/I&O Vitals and I&O: Vital Signs Temp Pulse Resp BP Pulse Ox 06/06/24 04:30 36.8 C 74 16 102/59 L 98 06/06/24 00:03 36.8 C 77 20 109/57 L 98 Laboratory Last Values WBC 8.32 10^3/uL (4.4-10.8) 06/06/24 06:30 RBC 2.91 10^6/uL (3.93-5.22) L 06/06/24 06:30 Hgb 9.3 g/dL (11.2-15.7) L 06/06/24 06:30 Hct 26.5 % (36.0-46.0) L 06/06/24 06:30 MCV 91 fL (80-95) D 06/06/24 06:30 MCH 32.0 pg (27.0-33.0) 06/06/24 06:30 MCHC 35.1 % (32.0-36.0) D 06/06/24 06:30 RDW 14.3 % (11.7-14.6) 06/06/24 06:30 Plt Count 169 10^3/uL (130-400) 06/06/24 06:30 MPV 11.8 fL (8.0-11.0) H 06/06/24 06:30 Sodium 137 mmol/L (136-145) 06/06/24 06:30 Potassium 4.2 mmol/L (3.5-5.1) 06/06/24 06:30 Chloride 104 mmol/L (98-107) 06/06/24 06:30 Carbon Dioxide 24.2 mmol/L (21.0-32.0) 06/06/24 06:30 Anion Gap 8.8 mmol/L (3-11) 06/06/24 06:30 BUN 32 mg/dL (7-18) H 06/06/24 06:30 Creatinine 1.1 mg/dL (0.55-1.02) H 06/06/24 06:30 Est GFR (CKD-EPI 2020) 51.11 (mL/min/1.73m2) 06/06/24 06:30 Glucose 109 mg/dL (74-106) H 06/06/24 06:30 Calcium 8.5 mg/dL (8.5-10.1) 06/06/24 06:30 ABO/Rh B Positive 06/05/24 16:57 Blood Type Recheck B Positive 06/05/24 15:50 Antibody Screen NEGATIVE 06/05/24 16:57 Crossmatch See Detail 06/05/24 16:57 PFSH All Active Problems Acute blood loss anemia (Acute) Atrial fibrillation (Chronic) 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 (Acute) LEFT Instability of internal right knee prosthesis (Acute) Painful total knee replacement, right (Acute) Painful total knee replacement, left (Acute) Eczematoid otitis externa (Acute) Actinic keratosis (Acute) Medical History 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) Conductive hearing loss, external ear (07/15/15) Premature atrial contractions Dyspnea Irregular heart rate Fatigue Degenerative joint disease Decreased hearing Eczema Insomnia HTN (hypertension) Peripheral vascular disease Diverticulosis Osteoporosis Family History Mother Heart disease dies of [place] at age 78 Father Heart failure of HR age 56 Diabetes Heart disease Brother Heart disease cardiac stent Social History Smoking/Tobacco Use Status: Never Smoking risk assessment performed?: Yes Alcohol Intake: current Alcohol Intake frequency: holidays/special occasions only Drug use: Never Substance use type: does not use Household members: spouse Housing: house 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
--- NOTE | 2024-06-06 11:06 | PDOC.CMDIS ---
Date of service: 06/06/24 Time of Service: 11:11 LACE Index Scoring Tool Questions: Length of Stay (in days): 2 Was the patient admitted via the E.D.?: No E.D. Visits: 0 Answers: Total Score: 2 Risk of Readmission: Low Risk Care Management Discharge Plan Reason for Hospitalization: revision of left total knee replacement Discharge Plan: Jenn was discharged home this morning with new orders for HH PT. She was given a FWW for use while she recovers. Jenn will f/u with her ortho on 06/16, and begin outpatient PT on 06/18. She will continue with her prescribed plan of care and will transport home with her . Patient/Family Education Needs: Review of discharge instructions, activity, limitations, and discuss ask me 3. Services Needed at Discharge: Home Health Care Services (PT) SDOH Health Related Social Needs: No Data to Display
--- NOTE | 2024-06-06 12:08 | PT.INTREAT ---
PT Notes Visit Reasons: Loose knee prosthesis - LEFT Inpatient Physical Therapy Treatment Note [facility] Date:06/06/2024 PRECAUTIONS:WBAT LLE, Monitor for lightheadedness SUBJECTIVE: Pt reports she is feeling much better since she got the transfusion but her knee continues to hurt (pointing to area of distal medial thigh /knee. If only this would go away. OBJECTIVE: Pt presented supine in bed with cryocuff to left knee. Nursing premedicated half hour prior. ? PAIN: 4-5 to distal medial thigh/knee with Weight bearing. Dr Basurto present and reassurred pt that it would lessen in time but he had to do a lot of work in that area so he expected her to have pain there. VITALS: ?Hr 74-90 Therapeutic Activities (49267): Direct one-on-one instruction in dynamic activities to improve functional performance. ? BED MOBILITY/TRANSFERS? Rolling L/R: supervised supine to sit supervision ? Sit-supine: CGA? Sit-stand: SBA without cues for hand placement?x 5 trials ? Stand-sit:SBA cues for RW mgmt to stay with her body and cues for hand placement? ?x 5 trials ? Bed-Chair: SBA FWW? Chair-bed: SBA with FWW Provided skilled cues and instruction on performance and technique throughout. [] employing an assistive device [X] modified weight-bearing status [X] movement sequencing [X] turning and movement with proper form [] Provided verbal cues for equipment management and technique [X] Provided instruction in gait pattern [] Patient education regarding pacing and breathing techniques to maximize activity tolerance? GAIT? Assistive Device: FWW? Weight bearing: WBAT LLE Assist: initially Min A for left knee extension (first 8 steps) max cues for heelstrike and hold knee extension through midstance. then pt able to perform with SBA and cueing for posture upright and keeping RW closer to body to allow for WB through UE to decrease WB through LLE to decrease pain ? Distance:?60feet x 1 40 feet x 1 , 100 feet ?x 1 ? Deviation: antalgic pattern decreased step length , toe fist for weight acceptance unless cued. increased forward flexion of trunk if FWW too far in front of her.? stairs 5 steps with step to pattern cues to hold knee extension to advance RLE. CGA ? review of HEP and role of HH PT prior to her scheduled OP PT ASSESSMENT:?Pt with significant improvement in ability to perform transfers, ambulation and stairs this session . present for end of session to see ambulation with FWW. Pt reeducated on NOT placing anything under her knee and to utilize support at ankle to promote knee extension. She will benefit from Home PT for continued strengthening, pain management , ambulation to reduce deviations and maximize outcome of Left TKA PLAN: 1-2x/day, 7 days/week x 1 week.Plan of care has been reviewed with the PREFABRICATOR providing the service under Physical Therapy direction. Initiate Physical Therapy intervention for strengthening, bed mobility, transfers, gait, stairs, balance training, use of assistive device TREATMENT CODE/TIME:95284 /[id number] DISCHARGE RECOMMENDATION: HHPT then outpatient PT as scheduled once appropriate for discharge
== END 2024-06-06 11:02 | disposition home health service (06) | DRG 467 ==
LOC: PDS 11:49 → MS 18:54
PROVIDERS: Admitting Provider Student in an Organized Health Care Education/Training Program; PCP Nurse Practitioner Family; Visit Provider Student in an Organized Health Care Education/Training Program
PROC: 0SPD0JZ Removal of Synthetic Substitute from Left Knee Joint, Open Approach (ICD-10-PCS; CPT 27487; principal; 2024-06-04 13:00)
DX: T84.038A Mechanical loosening of other internal prosthetic joint, initial encounter (principal); D62 Acute posthemorrhagic anemia; I48.20 Chronic atrial fibrillation, unspecified; Z96.653 Presence of artificial knee joint, bilateral; T84.84XA Pain due to internal orthopedic prosthetic devices, implants and grafts, initial encounter; I10 Essential (primary) hypertension; G47.00 Insomnia, unspecified; M81.0 Age-related osteoporosis without current pathological fracture; I73.9 Peripheral vascular disease, unspecified; R42 Dizziness and giddiness; H60.8X3 Other otitis externa, bilateral; G89.18 Other acute postprocedural pain; M25.562 Pain in left knee; M12.262 Villonodular synovitis (pigmented), left knee; M85.862 Other specified disorders of bone density and structure, left lower leg
CPT/HCPCS: 27487; 36415; 64447; 80048; 85027; 86850; 86900; 86901; 86920; 97110; 97162; 97530; 99223; 73560; 85018; C1776; J0171; J0690; J1100; J2003; J2250; J2371; J2405; J2704; J3490; J8540; P9016

== ENCOUNTER 2024-06-16 15:38 | Outpatient (CLI) | payer MEDICARE, SELFPAY ==
--- NOTE | 2024-06-16 10:45 | DI.RAD_ITS ---
Exam(s) XR KNEE LT 2V AP,LAT EXAM: XR KNEE LT 2V AP,LAT CLINICAL HISTORY: S/P REVISION L TKA. TECHNIQUE: 2D digital imaging was performed. Three views. COMPARISON: CR XR KNEE LT 2V AP,LAT from 06/04/2024 FINDINGS: BONES: There is stable alignment of the revised knee prosthesis. No abnormal surrounding lucencies. No acute fracture is present. No bony destructive lesion is seen. JOINTS: The knee is normally aligned. No joint effusion is seen. SOFT TISSUE: Surgical clips, vascular calcification and soft tissue calcifications again noted. IMPRESSION: Stable appearance of revised knee prosthesis. DATA REPOSITORY: RADIATION DOSE DELIVERED:
== END 2024-06-16 15:39 | disposition home or self-care (01) ==
LOC: DIORS 15:38
PROVIDERS: PCP Nurse Practitioner Family; Referring Provider Nurse Practitioner Family; Visit Provider Student in an Organized Health Care Education/Training Program
DX: T84.038D Mechanical loosening of other internal prosthetic joint, subsequent encounter (principal); Z47.1 Aftercare following joint replacement surgery; Z96.652 Presence of left artificial knee joint
CPT/HCPCS: 99024; 73560

== ENCOUNTER 2024-06-24 16:37 | Outpatient (REF) | payer MEDICARE, SELFPAY ==
[2024-06-24 19:51] LABS: HCT 32.2 % (36.0-46.0); HGB 10.4 g/dL (11.2-15.7); MCH 32.6 pg (27.0-33.0); MCHC 32.3 % (32.0-36.0); MCV 101 fL (80-95); MPV 11.3 fL (8.0-11.0); Platelet Count 357 10^3/uL (130-400); RBC 3.19 10^6/uL (3.93-5.22); RDW 15.7 % (11.7-14.6); RDW-SD 57.4 fL; WBC 5.95 10^3/uL (4.4-10.8)
== END 2024-06-24 16:38 | disposition home or self-care (01) ==
LOC: NCHCN 16:37
PROVIDERS: PCP Nurse Practitioner Family; Visit Provider Nurse Practitioner Family
DX: D64.9 Anemia, unspecified (principal)
CPT/HCPCS: 85027

== ENCOUNTER 2024-07-11 16:33 | Outpatient (CLI) | payer MEDICARE, SELFPAY ==
--- NOTE | 2024-07-11 | DI.US_ITS ---
Exam(s) US LOWER EXTREMITY VENOUS LT EXAM: US LOWER EXTREMITY VENOUS LT CLINICAL HISTORY: Localized swelling, mass, lump, left lower limb, R22.42 TECHNIQUE: Grayscale, color, and doppler imaging of the deep venous system of the left lower extremi ty was performed. COMPARISON: US POCUS EXAM from 06/04/2024 FINDINGS: There is no evidence of intraluminal thrombus and there is normal compression and augmentation demons trated within the common femoral vein, femoral vein, and popliteal vein. In the ipsilateral calf the interrogated veins also exhibit normal compression/ augmentation properti es. The left greater saphenous vein is surgically absent (20 years ago). There is a Brizuela cyst in the popliteal fossa measuring 2.3 x 1.2 x 2.3 cm IMPRESSION: 1. No evidence of DVT in the left lower extremity. Brizuela cyst noted. DATA REPOSITORY:
--- NOTE | 2024-07-11 16:46 | DI.VRAD_ITS ---
PROCEDURE INFORMATION: Exam: US Duplex Left Lower Extremity Veins, Limited Exam date and time: 07/11/2024 4:03 PM Age: 78 years old Clinical indication: Other: Lt leg swelling TECHNIQUE: Imaging protocol: Real-time duplex ultrasound of the left extremity with 2-D gomez scale, color Doppler flow and spectral waveform analysis including responses to compression and other maneuvers (when performed) with image documentation. Limited exam focused on the left lower extremity veins. COMPARISON: CT LOWER EXTREMITY LT WO 09/11/2023 9:54 AM FINDINGS: Left deep veins: Unremarkable. The common femoral, femoral, proximal profunda femoral and popliteal veins are patent without thrombus. Normal Doppler waveforms. Normal compressibility and/or augmentation response. Superficial veins: Greater saphenous vein at the saphenofemoral junction is patent without thrombus. The greater saphenous vein within the remaining portion of the thigh is not visualized. This is likely secondary to previous vascular surgery and coronary artery bypass graft. Soft tissues: There is extensive edema present within the left lower extremity. There is a 2.3 x 1.2 x 2.3 cm irregular simple fluid collection within the popliteal fossa consistent with Brizuela's cyst. IMPRESSION: 1. No evidence of deep vein thrombosis. 2. There is extensive edema present within the left lower extremity. 3. There is a 2.3 x 1.2 x 2.3 cm irregular simple fluid collection within the popliteal fossa consistent with Brizuela's cyst. 4. Greater saphenous vein at the saphenofemoral junction is patent without thrombus. The greater saphenous vein within the remaining portion of the thigh is not visualized. This is likely secondary to previous vascular surgery and coronary artery bypass graft. Dictated and Authenticated by: Mathieu Walden MD. Orderin Teresita Syed MD
== END 2024-07-11 16:53 ==
LOC: DI 16:36
PROVIDERS: PCP Nurse Practitioner Family; Visit Provider Physician Assistant Medical
DX: R22.42 Localized swelling, mass and lump, left lower limb (principal)
CPT/HCPCS: 93971

== ENCOUNTER → 2024-07-14 12:54 | Outpatient (BNVA) | payer MEDICARE, SELFPAY | PROVIDERS: PCP Nurse Practitioner Family; Referring Provider Nurse Practitioner Family | DX: Z47.1 Aftercare following joint replacement surgery (principal); Z96.652 Presence of left artificial knee joint | CPT/HCPCS: 99024 ==

== ENCOUNTER 2024-07-28 15:30 | Outpatient (REF) | payer MEDICARE, SELFPAY ==
[2024-07-28 16:03] LABS: Abs Immature Grans 0.01 10^3/uL (0.0-0.06); Absolute Basophil Count 0.04 10^3/uL (0.0-0.2); Absolute Eosinophil Count 0.13 10^3/uL (0.0-0.7); Absolute Lymphocyte Count 0.87 10^3/uL (1.2-3.4); Absolute Neutrophil Count 4.55 10^3/uL (1.2-6.7); Basophils % 0.7 %; Eosinophils % 2.2 %; HCT 35.3 % (36.0-46.0); HGB 11.6 g/dL (11.2-15.7); Immature Grans % 0.2 %; Lymphocytes % 14.7 %; MCH 33.1 pg (27.0-33.0); MCHC 32.9 % (32.0-36.0); MCV 101 fL (80-95); MPV 11.5 fL (8.0-11.0); Monocytes % 5.1 %; Neutrophils % 77.1 %; Platelet Count 281 10^3/uL (130-400); RDW 14.6 % (11.7-14.6); RDW-SD 53.3 fL
[2024-07-28 16:19] LABS: Anion Gap 7.9 mmol/L (3-11); BUN 19 mg/dL (7-18); CO2 28.1 mmol/L (21.0-32.0); CREATININE 0.8 mg/dL (0.55-1.02); Calcium 9.5 mg/dL (8.5-10.1); Chloride 108 mmol/L (98-107); Glucose 151 mg/dL (74-106); Potassium 4.4 mmol/L (3.5-5.1); Sodium 144 mmol/L (136-145)
== END 2024-07-28 15:31 | disposition home or self-care (01) ==
LOC: NCHCN 15:30
PROVIDERS: PCP Nurse Practitioner Family; Visit Provider Nurse Practitioner Family
DX: R06.09 Other forms of dyspnea (principal)
CPT/HCPCS: 80048; 85025

== ENCOUNTER → 2024-08-11 12:55 | Outpatient (BNVA) | payer MEDICARE, SELFPAY | PROVIDERS: PCP Nurse Practitioner Family; Referring Provider Nurse Practitioner Family; Visit Provider Student in an Organized Health Care Education/Training Program | DX: Z47.1 Aftercare following joint replacement surgery (principal); Z96.652 Presence of left artificial knee joint | CPT/HCPCS: 99024 ==

== ENCOUNTER → 2024-09-22 13:28 | Outpatient (BNVA) | payer MEDICARE, SELFPAY | PROVIDERS: PCP Nurse Practitioner Family; Referring Provider Nurse Practitioner Family; Visit Provider Physician Assistant | DX: Z47.1 Aftercare following joint replacement surgery (principal); Z96.652 Presence of left artificial knee joint | CPT/HCPCS: 99213 ==

== ENCOUNTER → 2024-12-12 12:34 | Outpatient (BNVA) | payer MEDICARE, SELFPAY | PROVIDERS: PCP Nurse Practitioner Family; Referring Provider Nurse Practitioner Family; Visit Provider Internal Medicine Cardiovascular Disease | DX: R06.02 Shortness of breath (principal); I48.19 Other persistent atrial fibrillation; Z79.01 Long term (current) use of anticoagulants | CPT/HCPCS: 99214 ==

== ENCOUNTER 2024-12-23 13:42 | Outpatient (CLI) | payer MEDICARE, SELFPAY ==
--- NOTE | 2024-12-23 07:30 | DI.US_ITS ---
APPROVED REPORT EXAM: Comprehensive 2D, Doppler, and color-flow Echocardiogram Patient Location: Out-Patient Beam Saw Operator: Tish Link RDCS (AE) Indications: Lv function, SOB, Persistent Atrial Fibrillation, Other Information Study Quality: Adequate Conclusion Normal left ventricular wall thickness and chamber size. Ejection fraction is 55%. Wall motion is normal Normal right ventricular size and function Left atrium is severely dilated. Right atrium is moderately dilated Trileaflet aortic valve without stenosis or regurgitation Mitral annular calcification. Moderate mitral regurgitation Moderate tricuspid regurgitation. Estimated right ventricular systolic pressure is 32 mmHg Wall motion Left Ventricle The left ventricle is normal size. The left ventricular systolic function is normal. The left ventricular ejection fraction is within the normal range. There is normal left ventricular wall thickness. There is normal LV segmental wall motion. There is no ventricular septal defect visualized. LVEF is 55%. Right Ventricle Right ventricle is grossly normal in size. Right ventricular systolic function is grossly normal. Atria Left atrium is severely dilated. Right atrium is moderately dilated. The interatrial septum is intact with no evidence for an atrial septal defect. Aortic Valve The aortic valve is normal in structure. Aortic valve is trileaflet. There is no aortic valvular stenosis. No aortic regurgitation is present. Mitral Valve Mild mitral annular calcification. No evidence of mitral valve stenosis. Moderate mitral regurgitation. Tricuspid Valve The tricuspid valve is normal in structure. There is no tricuspid valve stenosis. Moderate tricuspid regurgitation. The RVSP is 32.0 mmHg. Pulmonic Valve The pulmonary valve is normal in structure. There is no pulmonic valvular stenosis. There is no pulmonic valvular regurgitation. Great Vessels The aortic root is normal in size. The ascending aorta is normal in size. Aortic arch is not well visualized. IVC is normal in size and collapses >50% with inspiration. Pericardium There is no pericardial effusion. 2D Dimensions IVSD d PLAX 0.81 cm F: 0.6-1.0 Ao Root d 2.56 cm F: 2.7 - 3.3 LVPW d PLAX 0.81 cm F: 0.6 - 1.0 Ao Asc Diam d 2.83 cm F: 2.3 - 3.1 LVID d PLAX 4.50 cm F: 3.8 - 5.2 LVDs 3.20 cm F: 2.2 - 3.5 LV EF Teichholz 55.4 % FS 28.71 % LV EDV (Teich) 90.7 mL LV ESV (Teich) 40.4 mL M-Mode TAPSE 1.44 cm (M/F) >1.7 Auto EF LV EDV A4C 80.1 mL LV EDV A2C 78.5 mL LV EDV BP 78.1 mL LV ESV A4C 36.3 mL LV ESV A2C 35.3 mL LV ESV BP 35.9 mL LVEF(%) A4C 54.6 % LVEF(%) A2C 55.1 % LVEF(%) BP 54.0 % LV SV A4C 43.7 ml LV SV A2C 43.2 ml LV SV BP 42.2 ml LV CO A4C 3.7 L/min LV CO A2C 3.0 L/min LV CO BP 3.3 L/min HR A4C 84.71 BPM HR A2C 68.81 BPM LV EDV Index (BP) LA Volume LA Length A4C 5.8 cm LA Length A2C 5.2 cm LA Area A4C s 25.72 cm2 LA Area A2C s 23.59 cm2 LA Vol A4C A-L 96.66 mL LA Vol A2C A-L 90.37 mL LA Vol Biplane A-L 98.5 mL LA Vol/BSA A4C A-L LA Vol/BSA A2C A-L LA Vol/BSA BP A-L 57.0 mL/m2 LA Vol A4C MOD 88.7 mL LA Vol A2C MOD 82.5 mL LA Vol BP MOD 89.5 mL RA Volume RA Area A4C 17.1 cm2 RA ESV A4C (A-L) 41.5mL RA Vol/BSA A4C A-L RA Length A4C 6.0 cm RA ESV A4C (MOD) 39.5mL LV Diastology MV E' medial 0.118 (>0.07 m/s) MV E' lateral 0.128 (>0.1 m/s) Aortic Valve AoV Vmax 0.87 m/s LVOT Vmax 0.86 m/s AoV Peak Grad 3.0 mmHg LVOT Peak Grad 3.0 mmHg AoV Area (Vmax) 2.65 cm2 LVOT VTI 0.211 m AoV VTI 0.209 m LVOT Mean Grad 1.6 mmHg AoV Mean Alessio. 0.62 m/s LVOT SV 56.13 mL AoV Mean Grad 1.8 mmHg LVOT Diam s 1.80 cm AoV Area (VTI) 2.68 cm2 AV Regurg Peak Gr. 2.99 mmHg Velocity Ratio 0.99 Mitral Valve MV Vmax TIPS 1.34 m/s MR Vmax 4.91 m/s MV Mean Grad 2.9 (<2mmHg) MR VTI 1.835 m MV VTI 0.277 m MR Peak Grad 96.3 mmHg MR Mean Grad 68.8 mmHg Pulmonary Valve PV Vmax 0.85 (0.5-1.5 m/s) RVOT Vmax 0.53 m/s PV Peak Grad 2.9 mmHg RVOT Peak Gr. 1.1 mmHg PV Mean Alessio 0.57 m/s RVOT VTI 0.123 m PV Mean Grad 1.5 mmHg RVOT Mean Gr. 0.6 mmHg Tricuspid Valve RA Pressure 3.00 mmHg TR Vmax 2.69 m/s TV S' 0.10 m/s TR Peak Grad 29.0 mmHg RVSP (TR) 32.0 mmHg
--- NOTE | 2024-12-23 14:20 | DI.RAD_ITS ---
Exam(s) XR CHEST 2V PA LATERAL EXAM: XR CHEST 2V PA LATERAL CLINICAL HISTORY: SOB,ATRIAL FIBRILLATION,R06.02,I41.9 TECHNIQUE: 2D digital imaging was performed. Two views. COMPARISON: CR XR CHEST 2V PA LATERAL from 10/04/2022 FINDINGS: HEART: Mildly enlarged. Mitral annular calcification. Aorta: Not dilated. PULMONARY VASCULATURE: Normal. MEDIASTINUM: Unremarkable. LUNGS: Clear. PLEURAL SPACE: No pleural effusion or pneumothorax. BONE:Unremarkable for age. SOFT TISSUES: Unremarkable. IMPRESSION: No acute abnormality. DATA REPOSITORY: RADIATION DOSE DELIVERED:
== END 2024-12-23 14:02 ==
LOC: DI 13:42
PROVIDERS: PCP Nurse Practitioner Family; Visit Provider Internal Medicine Cardiovascular Disease
DX: I48.91 Unspecified atrial fibrillation (principal); R06.02 Shortness of breath; I48.19 Other persistent atrial fibrillation; I08.3 Combined rheumatic disorders of mitral, aortic and tricuspid valves
CPT/HCPCS: 93306; 71046

== ENCOUNTER 2024-12-25 00:16 | Outpatient (CLI) | payer MEDICARE, SELFPAY ==
--- NOTE | 2024-12-25 06:45 | DI.NM_ITS ---
APPROVED REPORT Exam: Pharmacologic Patient Location: Out-Patient Room/Bed: Stress Nurse: Adalberto Allen RN Ordering Provider:MARGARET ROMERO, Contact Number: [phone] BMI: 27.43 Baseline Rhythm: Atrial Fibrillation. Comment: Rare PVC's. Indications: Exertional Dyspnea; Persistent Atrial Fibrillation; Shortness of Breath. Medical History Medical History: Acute Blood Loss Anemia (06/04/2024); Atrial Fibrillation; Fatigue; Insomnia; HTN; PAC's; PVD; SOB. Cardiac Medications: Amitriptyline; Atorvastatin; Lisinopril; Metoprolol Tartrate; Meclizine; Rivaroxaban. Allergies: Oxycodone. Cardiac Risk Factors: Family Hx; HTN; PVD. Previous Cardiac Procedures: None. Pretest Chest Pain Characteristics: None. Exercise History: None. Physical Disabilities: Questionable limp? Lung Sounds: Clear bilaterally throughout, anterior and posterior. Heart Sounds: S1 and S2 auscultated. Stress Test Details Test: Pharmacologic stress was paired with low level exercise. Reason for pharmacologic stress test: physical limitation. Nuclear Acquisition: Rest Tc-99m/Stress Tc-99m 1 day Rest Isotope: Tc-99m Sestamibi. Dose: 10.0 Date: 12/25/2024 Injection Time: 1100 Stress Isotope: Tc-99m Sestamibi. Dose: 30.0 Date: 12/25/2024 Injection Time: 1250 HR Resting HR Supine: 100 bpm Max Heart Rate (APMHR): 140 bpm Resting HR Standin bpm Target HR (85% APMHR): 119 bpm Max HR Achieved: 143 bpm % of APMHR: 102 Recovery HR: 102 bpm HR response to stress: Accelerated HR response to stress. BP Resting BP Supine: 140/70 mmHg Resting BP Standin/72 mmHg Max BP: 148/84 mmHg Recovery BP: 118/70 mmHg BP response to stress: Normal blood pressure response to stress. ECG Resting ECG: Atrial Fibrillation. Ectopy: Rare PVC's. Stress ECG: Atrial Fibrillation. ST Change: No significant ST segment changes noted. Arrhythmia: None. Recovery ECG: Atrial Fibrillation. Recovery ST Change: No significant ST segment changes noted. Recovery Arrhythmia: Rare PVC's. Clinical Reason for Termination: Target HR Achieved, Dizziness. Stress Symptoms: Dizziness, Dyspnea. Angina Score: None Rate Pressure Product: [id number] Stress ECG Conclusion 1. Resting electrocardiogram showed atrial fibrillation and low voltage 2. Patient underwent testing using pharmacologic stress with regadenoson 3. Peak heart rate achieved was 100% of maximal predicted for age 4. There was no electrocardiographic evidence of myocardial ischemia 5. See MPI report Stress Test Summary STAGE HR BP SpO2 Symptoms NOTES Supine 100 140/70 95 Standing 102 138/72 96 Pt. c/o significant dizziness while attempting to walk on the treadmill. Treadmill was stopped; pt. was ambulated from treadmill to stretcher with assistance from nursing staff. Stress test immediately transitioned to a laying lexiscan. 1 min post Lexiscan injection 101 144/84 95 Pt. c/o moderate to severe shortness of breath immediately post lexiscan injection. Pt. c/o slight dizziness. 3 min post Lexiscan injection 119 148/84 97 Pt. c/o mild to moderate shortness of breath, slight dizziness, and a slight headache. 6 min post Lexiscan injection 102 118/70 97 Pt. denies shortness of breath and dizziness, but does c/o a slight headache. Pt. to be provided with coffee and a snack. Pt. attempted to perform a Rohit protocol (stage 1) MPI stress test due to pt. meeting the target heart rate when transitioning from laying to sitting to standing before even walking on the treadmill. Treadmill was stopped after only 22 seconds due to pt. c/o significant dizziness and appearing unstable and unsteady on the treadmill. Pt. ambulated from the treadmill to the stretcher with assistance from nursing staff. Stress test was immediately transitioned to a laying lexiscan MPI stress test. Pt. still c/o slight dizziness even in the supine position. Pt. c/o moderate to severe shortness of breath immediately post lexiscan injection, as well as, slight dizziness. Pt. c/o mild to moderate shortness of breath at 3 minutes post lexiscan injection, as well as, slight dizziness and a slight headache. Pt. denies shortness of breath and dizziness, but does c/o a slight headache at 6 minutes post lexiscan injection. Pt. was conversing pleasantly with nursing staff upon leaving the Stress Lab, left am bulatory in no apparent distress, and was escorted from the Stress Lab to the SD waiting room with assistance from nursing staff, where she was provided with coffee and a snack. MPI Conclusion Myocardial perfusion is normal. There is no ischemia or evidence of prior infarction Left ventricular contractility is hyperdynamic, no wall motion abnormalities
[2024-12-25] MEDS: Regadenoson 0.4 MG/5 ML SYR IVP (12:49)
== END 2024-12-25 00:36 ==
LOC: DI 00:16
PROVIDERS: PCP Nurse Practitioner Family; Visit Provider Internal Medicine Cardiovascular Disease
DX: I48.91 Unspecified atrial fibrillation (principal); R06.02 Shortness of breath
CPT/HCPCS: 78452; 93016; 93018; 93017; J2785

== ENCOUNTER → 2024-12-30 09:52 | Outpatient (BNVA) | payer MEDICARE, SELFPAY | PROVIDERS: PCP Nurse Practitioner Family; Referring Provider Nurse Practitioner Family; Visit Provider Internal Medicine Cardiovascular Disease | DX: R06.02 Shortness of breath (principal); I48.19 Other persistent atrial fibrillation; R60.0 Localized edema | CPT/HCPCS: 99214 ==

== ENCOUNTER → 2025-04-14 13:36 | Outpatient (BNVA) | payer MEDICARE, SELFPAY | PROVIDERS: PCP Nurse Practitioner Family; Referring Provider Nurse Practitioner Family; Visit Provider Internal Medicine Cardiovascular Disease | DX: I48.19 Other persistent atrial fibrillation (principal); R60.0 Localized edema | CPT/HCPCS: 99213 ==